=== PATIENT | female | born 1955 | race Hispanic/Latino ===

== ENCOUNTER 2019-03-19 08:17 | Day surgery (SDC) | payer OTHER ==
[2019-03-14 15:33] LABS: Absolute Lymphocytes (CBC) 1.9 K/uL (0.7-4.9); Absolute Monocytes 0.4 K/uL (0.1-1.3); Basophils % 0.7 % (0-1.3); Eosinophils % 3.7 % (0-4.4); Hematocrit 38.4 % (36.0-45.0); Lymphocytes % 24.6 % (15.3-44.8); MPV 6.9 fL (7.6-11.3); Monocytes % 5.1 % (3.3-12.3); RBC Red Blood Cell Count 4.26 M/uL (3.86-4.86)
--- OUTSIDE RECORDS SUMMARY | 2019-03-19 08:21 | XMS REPORT | Continuity of Care Document ---
:1955 Author Organization Interface Problems Problem Status Onset Classification Date Comments Source Date Reported POTACATH Active [facility] PLACEMENT 6 Medications Medication Details Route Status Patient Ordering Order Source Instructions Provider Date Allergies, Adverse Reactions, Alerts Substance Category Reaction Severity Reaction Status Date Comments Source type Reported Immunizations Immunization Date Given Site Status Last Updated Comments Source Results Order Results Value Reference Date Interpretation Comments Source Name Range CVC CVC PORT-A-CATH PLACEMENT: 04/08 - insert insert /2015 - [facility] tunnel tunnel w/-w/o w/-w/o port/pu port/pum HISTORY: Lymphoma, long-term venous access needed for chemotherapy. Read by: Al Christy MD mp age p age 5+ Dictated Date/time: 04/08/16 16:50 5+ yrs yrs VR Electronically Signed by: Al Christy MD 04/08/16 16:52 VR FINAL REPORT PROCEDURE: Preliminary ultrasound of the right neck showed a patent and compressible right internal jugular vein. Using ultrasound guidance, maximum barrier sterile technique and local anesthetic, the r ight internal jugular vein above the clavicle was accessed with a micropuncture set. A J-wire wire was then placed under fluoroscopic guidance into the superior vena cava and manipulated into the inferior vena cava. An incision was then made in the upper anterior chest wall in the right subclavicular region, following which a pocket was created using blunt finger dissection to the level of the fascia. An 8 Divehi open-ended catheter was then tunneled from the pocket to the access site in the neck. Following this the micropuncture sheath was exchanged for a peel-away sheath through which the catheter was placed and the sheath then removed. The catheter was positioned under fluoroscopy with its tip at the cavoatrial junction. The catheter was then trimmed to an appropriate length following which it was attached to a Bard PowerPort and the retention collar applied. The port was then accessed with a noncoring needle following which there was good blood return. The port was then flushed with saline. The port was then placed into the pocket and positioned. The pocket incision was then closed with interrupted 3-0 Vicryl subcutaneous sutures and a 4-0 Vicryl running subcuticular suture. The access sit e in the neck was then closed with Dermabond. Steri-Strips were applied to both areas. The port was then accessed percutaneously with a noncoring needle. There was good blood return following which the port was flushed with approximately 20 ml of saline and the needle removed. The patient tolerated procedure well without immediate complications and was discharged from Special Procedures in stable condition. Spot imaging of the guidance procedures was done. The fluoroscopic time was 0.9 minutes.. [id number] Vital Signs Vital Sign Value Date Comments Source Encounters Location Location Encounter Encounter Reason Attending ADM DC Status Source Details Type Number For Provider Date Date Visit Procedures Procedure Code Date Perfomer Comments Source
[2019-03-19] MEDS ORDERED: Ringers Lactate 1,000 ML IV ONE (08:53)
[2019-03-19] MEDS ORDERED: CEFAZOLIN/SWI 1gm 1 GM/10 ML SYR ONE (08:54)
[2019-03-19] MEDS ORDERED: BUPIVACAINE 0.5% PF 10 ML VIAL ONE (08:55)
[2019-03-19] MEDS ORDERED: MIDAZOLAM HCL 2 MG/2 ML INJ ONE (09:33)
[2019-03-19] MEDS ORDERED: PROPOFOL 200 MG/20 ML VIAL IV ONE (09:33)
[2019-03-19] MEDS ORDERED: FENTANYL CITR 100 MCG/2 ML ONE (09:33)
[2019-03-19] MEDS ORDERED: LIDOCAINE 1% MPF 5 ML VIAL ONE (09:33)
[2019-03-19] MEDS ORDERED: SUCCINYLCHOLINE 20 MG/ML (10 ML) IV ONE (12:20)
--- NOTE | 2019-03-19 19:42 | OP ---
Date of Procedure: 03/19/2019 Surgeon: Juarez Gaines MD Preoperative Diagnosis: Non-Hodgkin's lymphoma. Status post Port-A-Cath placement. Postoperative Diagnosis: Non-Hodgkin's lymphoma. Status post Port-A-Cath placement. Procedure: Removal of right chest Port-A-Cath. Estimated Blood Loss: Minimal. Specimen: Port-A-Cath device. Findings: Normal anatomy. Anesthesia: General. Complications: None. Disposition: The patient tolerated the procedure in stable condition and taken to Recovery in good g eneral condition. Description Of Procedure: The patient was brought to the OR and placed in supine position. General anesthesia was begun. The patient was prepped and draped in sterile fashion. Marcaine 0.5% was infi ltrated locally. A 15-blade was used to make a 3 cm incision with a Port-A-Cath on the right anterio r chest. Subcutaneous tissue divided and deep to that Port-A-Cath device was identified, excised wit h sharp and blunt dissection, removed and sent to Pathology intact for identification. Wound irrigat ed. Bleeding controlled with cautery and then 3-0 chromic used to approximate the subcutaneous tissu e and close the skin. Sterile dressing was applied. The patient was awakened and taken to Recovery in good general condition. Discharge Note: The patient will go to day surgery and home when stable. Disposition: Home. Condition: Stable. Discharge Instructions: Resume home medications and diet. Activity as tolerated. No heavy lifting. Remove outer dressing in 2 days. Shower. Keep wound clean and dry. Keep Steri-Strips on at all t imes. Follow up in my office in 2 weeks. Call for appointment. Ultracet 1 tablet p.o. q.4 p.r.n. p adrian. JACK/ANAIS Voice ID: [id number] Report ID: [id number]
== END 2019-03-19 11:09 | disposition home or self-care (01) ==
LOC: OR 08:17
PROVIDERS: ATTEND Surgery
PROC: 0JPT3XZ Removal of Tunneled Vascular Access Device from Trunk Subcutaneous Tissue and Fascia, Percutaneous Approach (ICD-10-PCS; principal; 2019-03-19 09:30)
DX: Z45.2 Encounter for adjustment and management of vascular access device (principal); I10 Essential (primary) hypertension; Z79.899 Other long term (current) drug therapy; Z85.72 Personal history of non-Hodgkin lymphomas
CPT/HCPCS: 36415; 85025; 88300; J0330; J0690; J2250; J2704; J3010

== ENCOUNTER 2022-12-02 06:37 | Day surgery (SDC) | payer OTHER ==
[2022-12-02] MEDS ORDERED: Ringers Lactate 1,000 ML IV ONE (07:01)
[2022-12-02] MEDS ORDERED: ROCURONIUM 50 MG/5 ML VIAL IV ONE (07:25)
[2022-12-02] MEDS ORDERED: propofoL 200 MG/20 ML VIAL IV ONE (07:25)
[2022-12-02] MEDS ORDERED: LIDOCAINE 2% MPF 5 ML VIAL ONE (07:25)
[2022-12-02] MEDS ORDERED: FENTANYL CITR 100 MCG/2 ML ONE (07:25)
[2022-12-02] MEDS: CEFAZOLIN SODIUM 2 GM/VIAL ONE ×2 (07:48→08:27)
[2022-12-02 07:53] LABS: Potassium 4.9 mmol/L (3.5-5.1)
[2022-12-02] MEDS ORDERED: MIDAZOLAM HCL 2 MG/2 ML INJ ONE (08:25)
[2022-12-02] MEDS ORDERED: ONDANSETRON 4 MG/2 ML VIAL ONE (08:50)
[2022-12-02] MEDS ORDERED: dexAMETHasone 4 MG/ML VIAL ONE (08:50)
[2022-12-02] MEDS ORDERED: EPHEDRINE SULF 50 MG/ML VIAL ONE (09:01)
[2022-12-02] MEDS ORDERED: GLYCOPYRROLATE 0.2 MG/ML SYR ONE (10:22)
[2022-12-02] MEDS ORDERED: NEOSTIGMINE 1 MG/ML -10 ML VIAL ONE (10:23)
[2022-12-02] MEDS ORDERED: HOME MED 1 EA UNK (Naproxen Sodium [Aleve] 220 MG Tablet) PO PRN (10:26)
--- NOTE | 2022-12-02 10:33 | P.BOP ---
Preoperative diagnosis: Mixed urinary incontinence Postoperative diagnosis: Same Primary procedure: StgI InterStim/ incision+implantation of tined quadripolar lead electrode Secondary procedure: Into right S3 foramen with fluoroscopic guidance for needle placement Estimated blood loss: Minimal Specimen: None Findings: Right S3 excellent response:0,1 electrodes, 2,3 toe+, no linnea Anesthesia: General Complications: None Implants: medtronic quadripolar tined lead, ext stim connector Transferred to: Recovery Room Condition: Good (exit battery pocket Rt buttock)
--- NOTE | 2022-12-02 10:35 | RAD REPORT ---
EXAM DESCRIPTION: RAD - Fluoroscopy <1 Hour - 12/02/2022 10:26 am CLINICAL HISTORY: Device placement sacral neural modulation FINDINGS: An electrode lead placed into the left aspect of the sacrum. 3 fluoroscopic spot images are submitted. Fluoroscopy time 0.9 minutes The examination was performed by Dr. Ervin
[2022-12-02] MEDS: HYDROMORPHONE HCL 1 MG/ML INJ ONE ×2 (10:41→10:47)
[2022-12-02 11:28] VITALS: TEMP 97
[2022-12-02 12:39] VITALS: BP 99/42; O2SAT 96
[2022-12-02] MEDS ORDERED: DICYCLOMINE HCL 10 MG CAP PO SCH (14:00)
--- NOTE | 2022-12-02 18:40 | OP ---
Date of Procedure: 12/02/2022 Surgeon: Noris Ervin MD Preoperative Diagnosis: Mixed urinary incontinence. Postoperative Diagnosis: Mixed urinary incontinence. Procedure Performed: Stage I InterStim incision and implantation of tined quadripolar lead electrode s into right S3 foramen with fluoroscopic guidance for needle placement. Estimated Blood Loss: Minimal. Specimens: None. Complications: None. Drains: None. Findings: Right S3 had excellent response. The left S3 had no response on any of the electrodes. T he electrodes 0 and 1 have full response with the toes and linnea and 2 and 3 had just a toe respons e and no linnea. Anesthesia: General. Implant: Medtronic quadripolar tined lead external Stim connector. Disposition: Transferred to the recovery room in stable condition. Indications: The patient is a 67-year-old female with refractory overactive bladder. She was evalua comfort with a voiding log questionnaire given her severity of incontinence, which was overactive and str ess urinary incontinence. She underwent urodynamic testing, which proved that she had components of both the severity of urgency and urgency incontinence is much worse than her JORDAN so we started to dis cuss about all the therapies. She had medical treatment, which she did not have response from so thi rd line therapies were discussed between Botox and InterStim and she was consented for the InterStim therapy for sacral neuromodulation. She has undergone coaching for Kegel's and advised on pelvic zuhair or muscle rehab. Urine dip negative for infection and brought into the hospital for stage I InterStim. Procedure In Detail: The patient was properly identified and placed in a prone position by the OR pr otocol. General anesthesia was administered. Pillows were placed under the lower abdomen to flatten the sacrum and under the shins to allow the toes to dangle and these were exposed. She was prepped and draped with ChloraPrep and a sterile fashion. The C-arm was draped and moved into position to pr ovide fluoroscopic mapping on the sacral region. The midline was drawn by surface markings and an 11 cm proximal to the sacrum and to the coccyx in th e midline, transverse line was drawn and this was marked 2 cm and 2.5 on both sides. Then went ahead and started lidocaine injection on both sides all the way down to the periosteum. With the help of the foramen needle, this was introduced right above the sciatic notch and lateral to the sacral midline 2 cm, feeling for the foraminal margins. At the 2 cm sindy, still was palpating b one so I moved over to 2.5 cm and from here, it was easy to find the foraminal margins and once this was penetrated and inserted, then AP and lateral views were taken. The position seemed to be appropr iate; however, the entry was slightly more caudad and angulated. On testing, there was no response f or linnea or for toe flexion, plantar flexion, so I took another needle and went 0.5 cm cephalad krish ng the same line. Then this was introduced into the S3 without any problems. On testing with x-rays , this was in a good position; however, there was very minimal response with toe flexion. Moved over to the right side and once the needle was placed in the foraminal margin and confirmed flu oroscopically and adjusted fluoroscopically till the tip was just past the anterior border, then the motor function was tested. There was bellowing and plantar flexion of the great toe using the manager corporate al test stimulator. The foramen needle and stylet were removed and a bidirectional guide was placed and this was confirme d fluoroscopically. The foramen needle was then removed after making an incision on the skin and the fascia to open the incision slightly more. The directional guide was left in place and the needle r emoved. Then the lead introducer sheath with dilator was placed over the directional guide and direc comfort into the foramen ensuring that the radiopaque marker of the lead introducer did not extend beyond the anterior edge of the sacrum. There was bleeding at this point so this was with advanced slightl y until there was no bleeding and the stylet left in place. Once the bleeding had stopped completely , the dilator was unlocked and removed along the directional guide. The lead was then placed through the introducer sheath to the first white line and the position was checked fluoroscopically until th e lead 0 was just straddling the anterior border. Confirmed both on AP and lateral positions, there was an excellent curve following the nerve and once I tested this, the lead position had to be adjust ed as leads 2 and 3 had toe flexion, but minimal linnea first for the lead #2, but then later that a lso was lost. On leads 1 and 0, there was great plantar flexion and linnea and since the positionin g fluoroscopically also was optimal, I left this in place. Likely the conduction is affected by the bleeding and clot that was at the site of introduction. After this was satisfactory, the introducer sheath was retracted under continuous fluoro deploying the tined leads into the presacral tissue. Further incision was made into the skin of this incision to free up the lead without a knuckle. Next , incision was made 4 fingerbreadths inferior to the iliac crest on the right buttock after injecting 1% lidocaine. A 15 blade used then Bovie at least 1 inch into the buttock. Blunt dissection was co ntinued until the gluteal fascia was identified and hemostasis was secured with the Bovie. The [employer] Media[employer] ling tool with straw was placed from the lead exit site subcutaneously to the incised pocket site. T hen the tunneling tool was removed and the lead was fed through the straw and pulled out of the pocke t site. The lead was then cleansed off the bodily fluids. The external lead exit site was then sindy ed on the same side of the patient, the right and the tunneler was taken and this was brought out thr ough the exit incision. Then, attached the boot to this with the temporary percutaneous extension an d then brought out into the pocket. Then, the temporary percutaneous extension was removed from this and the lead was inserted into it and metal bands were aligned and the 4 set screws were tightened w ith a hex wrench. The boot was then pushed over the connection and the 0 silk ties were placed on th e external wire. Then all this was tucked into the pocket. The subcutaneous plane was closed with t he help of 2 interrupted 3-0 chromic sutures. 4-0 Monocryl was used for continuous running closure o f the skin at this site, the site for the exit of the external lead, and also at the site of the lead insertion. The wounds were irrigated and hemostasis was secured. Dermabond and gauze were placed o rangel the incisions. Tegaderm placed over this and the counts were correct. EBL was minimal. The pat ient was transferred to the recovery room in stable condition. Using the external test stimulator, t he patient programmed to optimal sensation. A diary was given to the patient to fill until the return to office on day 5 for evaluation of effica cy and then instructions given on utilizing the external test stimulator prior to discharge. The pat ient tolerated the procedure well. JESUS/ANAIS Voice ID: [id number] Report ID: [id number]
[2022-12-02] MEDS ORDERED: GABAPENTIN 300 MG CAP PO SCH (21:00)
[2022-12-02] MEDS ORDERED: HOME MED 1 EA UNK (Famotidine [Famotidine] 40 MG Tablet) PO SCH (21:00)
[2022-12-03] MEDS ORDERED: LOSARTAN POTASSIUM 50 MG TABLET PO SCH (06:00)
[2022-12-03] MEDS ORDERED: CRANBERRY FRUIT EXTRACT 425 MG PO SCH (09:00)
[2022-12-03] MEDS ORDERED: HOME MED 1 EA UNK (Cartilage/Collagen/Bor/Hyalur [Joint Health Tablet] Tablet) PO SCH (09:00)
[2022-12-03] MEDS ORDERED: FENOFIBRATE 145 MG TAB PO SCH (09:00)
[2022-12-03] MEDS ORDERED: [UNRECOGNIZED DRUG - REMARK] PO SCH (09:00)
[2022-12-03] MEDS ORDERED: SERTRALINE HCL 50 MG TAB PO SCH (09:00)
[2022-12-03] MEDS ORDERED: HOME MED 1 EA UNK (Estradiol [Estrace] 42.5 GM Cream.Appl) VG SCH (17:00)
== END 2022-12-02 12:13 | disposition home or self-care (01) ==
LOC: OR 06:37
PROVIDERS: ATTEND Obstetrics & Gynecology
PROC: 01HY3MZ Insertion of Neurostimulator Lead into Peripheral Nerve, Percutaneous Approach (ICD-10-PCS; principal; 2022-12-02 07:30)
DX: N39.46 Mixed incontinence (principal); N32.81 Overactive bladder; I10 Essential (primary) hypertension; E78.00 Pure hypercholesterolemia, unspecified; C85.90 Non-Hodgkin lymphoma, unspecified, unspecified site
CPT/HCPCS: 80048; 36415; 64561; J2704; J1100; J2710; J2001; J2250; J3010; J1170; J7120; J2405; 76000

== ENCOUNTER 2022-12-10 06:33 | Day surgery (SDC) | payer OTHER ==
[2022-12-10] MEDS ORDERED: Ringers Lactate 1,000 ML IV ONE (06:50)
[2022-12-10] MEDS ORDERED: LIDOCAINE 1% W/EPI 1:100,000 50 ML MDV ONE (07:26)
[2022-12-10] MEDS: CEFAZOLIN SODIUM 2 GM/VIAL ONE ×2 (07:30→07:35)
[2022-12-10 07:33] VITALS: TEMP 96.9
[2022-12-10] MEDS ORDERED: MIDAZOLAM HCL 2 MG/2 ML INJ ONE (07:45)
[2022-12-10] MEDS ORDERED: propofoL 200 MG/20 ML VIAL IV ONE (07:45)
[2022-12-10] MEDS ORDERED: ONDANSETRON 4 MG/2 ML VIAL ONE (07:45)
[2022-12-10] MEDS ORDERED: LIDOCAINE 2% MPF 5 ML VIAL ONE (07:45)
[2022-12-10] MEDS ORDERED: FENTANYL CITR 100 MCG/2 ML ONE (07:45)
[2022-12-10] MEDS ORDERED: HOME MED 1 EA UNK (Naproxen Sodium [Aleve] 220 MG Tablet) PO PRN (08:24)
[2022-12-10] MEDS ORDERED: PROMETHAZINE INJ 25 MG/ML AMP IV PRN (08:25)
--- NOTE | 2022-12-10 08:31 | P.BOP ---
Preoperative diagnosis: UUI, refractory OAB, JORDAN (Mixed incontinence) Postoperative diagnosis: same Primary procedure: Insertion and immplantation of Interstim X neuromodulator,programming Secondary procedure: Urethral Bulking with Bulkamid and cysto Estimated blood loss: min Specimen: none Findings: right buttock stimulator and Rt S3 lead, impedence check done Anesthesia: MAC Complications: None Implants: Interstim X, Bulkamid Transferred to: Recovery Room Condition: Good
[2022-12-10] MEDS ORDERED: DICYCLOMINE HCL 10 MG CAP PO SCH (09:00)
[2022-12-10] MEDS ORDERED: GABAPENTIN 300 MG CAP PO SCH (09:00)
[2022-12-10] MEDS ORDERED: [UNRECOGNIZED DRUG - REMARK] PO SCH (09:00)
[2022-12-10] MEDS ORDERED: HOME MED 1 EA UNK (Cartilage/Collagen/Bor/Hyalur [Joint Health Tablet] Tablet) PO SCH (09:00)
[2022-12-10] MEDS ORDERED: CRANBERRY FRUIT EXTRACT 425 MG PO SCH (09:00)
[2022-12-10] MEDS ORDERED: FENOFIBRATE 145 MG TAB PO SCH (09:00)
[2022-12-10] MEDS ORDERED: SERTRALINE HCL 50 MG TAB PO SCH (09:00)
[2022-12-10 10:45] VITALS: BP 98/38; O2SAT 98
[2022-12-10] MEDS ORDERED: HOME MED 1 EA UNK (Estradiol [Estrace] 42.5 GM Cream.Appl) VG SCH (17:00)
[2022-12-10] MEDS ORDERED: HOME MED 1 EA UNK (Famotidine [Famotidine] 40 MG Tablet) PO SCH (21:00)
--- NOTE | 2022-12-11 01:11 | OP ---
Date of Procedure: 12/10/2022 Surgeon: Noris Ervin MD Dairy Specialist: None. Preoperative Diagnoses: Mixed urinary incontinence, urgency, urinary incontinence, and refractory ov eractive bladder. Postoperative Diagnoses: Mixed urinary incontinence, urgency, urinary incontinence, and refractory o veractive bladder. Procedures Performed: 1.Incision and subcutaneous implantation of sacral neuromodulator with electronic analysis and progr amming. 2.Urethral bulking with Bulkamid and cystoscopy. Complications: None. Drains: None. Specimens: None. Estimated Blood Loss: Minimal. Condition: Stable. Findings: 1.The right buttock S3 quadripolar tined lead was done attached to the InterStim X neurostimulator i mplanted in the right buttock in an optimal fashion. check was passed before the pocket w as closed. 2.On urethral bulking, 0.8 mL of the Bulkamid was used with injections at 5 to 11 and 7 o'clock. Indications: The patient had significant improvement of urgency and urgency incontinence with pad us e and frequency, both nighttime and daytime and had significant improvement in quality of life and sl eep. She was very satisfied with her stage I trial and was consented for proceeding to stage II. She had significant JORDAN as well and so urethral bulking was suggested at this time. Procedure In Detail: After informed consent was verified, she was taken back to the OR. 2 g of Ance f were given. SCDs were placed. After she went to the operating room and MAC was given to her and s he was then placed in a prone position, per the OR protocol was properly identified and time-out was done. Her back was prepped and draped in the usual sterile fashion using ChloraPrep and local inject ion with 1% lidocaine. The previous buttock incision pocket was opened using blunt dissection after making an incision with a 15 blade and the V in the percutaneous extension connection was identified and elevated. The percu taneous extension was cut and removed after the lead was detached from the boot, all this was done en suring sterility. The cutaneous pocket anterior to the muscle surface was enlarged and hemostasis wa s established. The sutures holding the protective boot were cut and the boot was retracted. Before the boot was cut, the set screws were exposed and loosened with a hex wrench in order to detach the l ead. The lead was cleansed off body fluid then dried. The lead was inserted into the header of the InterS hilario II neurostimulator of the InterStim X neurostimulator until the blue tip was visualized at the di stal window and the single set screw was tightened for 2 to 3 clicks. The neurostimulator was then placed into the subcutaneous pocket with the etched identification side upwards and the excessive lead wrapped counterclockwise around the neurostimulator. The programming head was placed over the implanted neurostimulator in a sterile to ensure adequate lead co nnection and that the parameters were within normal limits. Impedances were confirmed to be within n ormal limits. The wound was irrigated with antibiotic solution and water and closed with the help of 3-0 chromic leblanc bcutaneous sutures and then 4-0 Monocryl in a continuous running fashion. Dermabond was placed and l ater Telfa on the top. Counts were correct. Bandage was placed on the Telfa. The patient was rolled over onto the bed that was brought into the OR from the operating table into a supine position and she was transferred back onto the operating room table. Once MAC was given agai n, she was placed in a dorsal lithotomy position using Isaías stirrups. Vulva, vagina, and perineum w ere prepped and draped in a sterile fashion. Then using the pediatric cystoscope and the Bulkamid sh eath, after priming the line then this was placed inside the urethra and keeping the tip of the sheat h on the cystoscope at the internal meatus, the Bulkamid needle was extended 2 cm into the bladder. Then, the entire system was retracted back in the mid urethra, 2 cm from the internal sphincter. In the mid urethra, by staying on the same side and pressing down onto the side which was being injected , which made the needle parallel and the scope as well to the wall and the location at which we wante d to place the Bulkamid gel optimal. Then the needle was injected with to slightly more t ruiz 0.5 cm almost to a complete cm and the Bulkamid agent was injected. The same injection was done at 5 o'clock, 1 to 2 o'clock, 11 o'clock, and between 7 and 8 o'clock. 0.8 mL was injected. At the first attempt, the needle and the syringe were not attached very firmly so the material squeezed out and we had to take a second syringe. Once this was done, there was excellent apposition of the ureth ral wall. There was no flow that was retrograde. The scope was gently pulled out then the patient w as cleaned up. She was recovered from anesthesia. Instrument, needle, and sponge counts were correc t. EBL minimal. All the parameters were programmed for the particular case. Plan to hold voiding trial before her di efren. JESUS/LEEANNL Voice ID: [id number] Report ID: [id number]
[2022-12-11] MEDS ORDERED: LOSARTAN POTASSIUM 50 MG TABLET PO SCH (06:00)
== END 2022-12-10 10:32 | disposition home or self-care (01) ==
LOC: OR 06:33
PROVIDERS: ATTEND Obstetrics & Gynecology
PROC: 0TVD8ZZ Restriction of Urethra, Via Natural or Artificial Opening Endoscopic (ICD-10-PCS; principal; 2022-12-10 07:30)
PROC: 0JH73BZ Insertion of Single Array Stimulator Generator into Back Subcutaneous Tissue and Fascia, Percutaneous Approach (ICD-10-PCS; 2022-12-10 07:30)
DX: N39.46 Mixed incontinence (principal); N32.81 Overactive bladder
CPT/HCPCS: 51715; 64590; J2704; J3010; J2001; J2250; J7120; J2405; L8606

== ENCOUNTER 2024-01-05 05:14 | Inpatient (IN) | payer OTHER ==
[2024-01-05] MEDS ORDERED: KETOROLAC 30 MG/ML INJ ONE (05:46)
[2024-01-05] MEDS ORDERED: ONDANSETRON 4 MG/2 ML VIAL ONE (05:46)
[2024-01-05] MEDS ORDERED: NA CHLORIDE 0.9% 1,000 ML ONE ×3 (05:47→15:52)
[2024-01-05] MEDS ORDERED: HALOPERIDOL LACT 5 MG/ML INJ ONE (05:47)
[2024-01-05] MEDS ORDERED: FAMOTIDINE 20 MG/2 ML VIAL IV ONE (05:47)
[2024-01-05 05:57] LABS: Absolute Basophils 0.1 K/uL (0-0.5); Absolute Eosinophils 0.2 K/uL (0-0.5); Absolute Lymphocytes (CBC) 1.5 K/uL (0.7-4.9); Absolute Monocytes 0.3 K/uL (0.1-1.3); Absolute Neutrophil 15.3 K/uL (1.8-8.0); Basophils % 0.4 % (0-1.3); Eosinophils % 0.9 % (0-4.4); Hematocrit 41.7 % (36.0-45.0); Hemoglobin 13.5 g/dL (12.0-15.0); Lymphocytes % 8.5 % (15.3-44.8); MCH 29.7 pg (27.0-35.0); MCHC 32.4 g/dL (32.0-36.0); MCV 91.5 fL (80-100); MPV 8.4 fL (7.6-11.3); Monocytes % 1.6 % (3.3-12.3); Neutrophils % 88.6 % (41.7-73.7); Nucleated Red Blood Cells % 0.1 % (0-0); Platelets 216 thou/uL (152-406); RBC Red Blood Cell Count 4.56 M/uL (3.86-4.86); Red Cell Distribution Width 13.2 % (12.1-15.2)
[2024-01-05 06:23] LABS: Albumin 2.6 g/dL (3.4-5.0); Albumin/Globulin Ratio 0.6 (1.1-1.8); Anion Gap 18.5 mEq/L (5.0-15.0); Bilirubin Total 3.9 mg/dL (0.2-1.0); Globulin 4.7 g/dL (2.3-3.5); Potassium 4.5 mEq/L (3.5-5.1); Protein, Total 7.3 g/dL (6.4-8.2)
[2024-01-05 06:25] LABS: Troponin High Sensitivity 99.2 pg/mL (<58.9)
[2024-01-05 06:32] LABS: Sqamous Epithelial 20-50 /HPF (None Seen); Urine Bacteria Loaded /HPF (<20); Urine Bilirubin NEGATIVE (Negative); Urine Blood 3+ (Negative); Urine Clarity Extremely Turbid (Clear); Urine Color Dark-Orange (Yellow); Urine Culture Reflex Order NOT NEEDED; Urine Glucose NEGATIVE (Negative); Urine Ketones NEGATIVE (Negative); Urine Microscopic Reflex YN ORDER UMIC; Urine Mucus 4+ /HPF (None Seen); Urine Nitrite NEGATIVE (Negative); Urine Protein 2+ (Negative); Urine RBC >50 /HPF (None Seen); Urine Urobilinogen Normal (Normal); Urine WBC >50 /HPF (<5); Urine WBC Clump Many /HPF (None Seen); Urine pH 5.5 (5.0-7.0)
[2024-01-05] MEDS ORDERED: CEFTRIAXONE 1000 MG/VIAL ONE (06:49)
[2024-01-05] MEDS ORDERED: METRONIDAZOLE 500mg IVPB 500 MG/100 ML BAG IV ONE ×2 (06:49→17:51)
[2024-01-05 07:13] LABS: Thyroid Stimulating Hormone 2.18 uIU/mL (0.358-3.740)
[2024-01-05 07:27] LABS: Atypical Lymphocytes 1 %; Band Neutrophils 20 % (0-1); Differential Total Cells Count 100; Eosinophils 1 % (0-3); Lymphocytes 13 % (15-42); Monocytes 9 % (0-10); Nucleated Red Blood Cells 1 /100WBC; Segmented Neutrophils 56 % (40-80)
[2024-01-05 07:28] LABS: Blood Morphology Comment NOT SEEN (NOT SEEN); Platelet Estimate ADEQ
[2024-01-05] MEDS: DIGOXIN 0.25 MG/ML AMP ONE (07:33)
[2024-01-05] MEDS: NA CHLORIDE 0.9% 1,000 ML ONE (07:33)
--- NOTE | 2024-01-05 08:06 | RAD REPORT ---
EXAM DESCRIPTION: CT - Abdomen Pelvis Wo Contrast - 01/05/2024 6:53 am CLINICAL HISTORY: Abdominal pain. ABD PAIN COMPARISON: <Comparisons> TECHNIQUE: CT imaging of the abdomen and pelvis was performed without contrast. Solid organ, bowel a nd vascular assessment is limited due to lack of IV and oral contrast. All CT scans are performed using dose optimization technique as appropriate and may include automated exposure control or mA/KV adjustment according to patient size. FINDINGS: The lower lung shankar are clear. The liver, spleen, pancreas, adrenal glands and kidneys are within normal limits for a limited non-co ntrast examination.Cholecystectomy. No bowel obstruction, free air, free fluid or abscess. The colon appears mildly fluid distended throu ghout its course. Wall thickening is present throughout the colon is mild. No evidence pneumatosis co li. The appendix is normal. Moderate fat containing umbilical. Moderate lower lumbar degenerative changes. IMPRESSION: [id number] pancolitis. A limited non-contrast examination was performed as detailed.
[2024-01-05] MEDS ORDERED: AMIODARONE HCL 150 MG/3 ML INJ IV ONE (08:11)
[2024-01-05] MEDS: AMIODARONE HCL 900 MG in Dextrose 5%-Water 482 ML IV SCH (08:19)
[2024-01-05] MEDS ORDERED: NA CHLORIDE 0.9% 50 ML ONE (08:48)
--- NOTE | 2024-01-05 09:05 | EDPHYS ---
Physician Documentation [facility] Name: Jovana Tyson Age: 68 yrs Sex: Female : 1955 Arrival Date: 01/05/2024 Time: 05:14 Bed 4 Private MD: ED Physician Zeyad Mir HPI: 01/04 05:34 This 68 yrs old Female presents to ER via Unassigned with complaints of sp4 Abdominal Pain, Diarrhea. 06:37 Patient reports left-sided abdominal pain starting 3 days ago associated with nausea sp4 and diarrhea. . Historical: - Allergies: 05:37 Codeine; tm6 - PMHx: 05:37 Hypertensive disorder; Hypercholesterolemia; overactive bladder; tm6 06:33 non-hodgkins lymphona; tm6 - PSHx: 05:37 tubal ligation; tm6 - Immunization history:: Adult Immunizations up to date, Client reports having NOT received the Covid vaccine. Flu vaccine is up to date. - Social history:: Smoking status: Patient denies any tobacco usage or history of. Patient/guardian denies using alcohol. - Family history:: not pertinent. ROS: 06:37 Constitutional: Negative for fever, chills, and weight loss, positive abdominal pain sp4 nausea and diarrhea 06:37 All other systems are negative, Exam: 06:37 Constitutional: This is a well developed, well nourished patient who is awake, alert, sp4 and in no acute distress. Head/Face: Normocephalic, atraumatic. Eyes: Pupils equal round and reactive to light, extra-ocular motions intact. Lids and lashes normal. Conjunctiva and sclera are not injected. Cornea within normal limits. Periorbital areas with no swelling, redness, or edema. ENT: Nares patent. No nasal discharge, no septal abnormalities noted. Tympanic membranes are normal and external auditory canals are clear. Oropharynx with no redness, swelling, or masses, exudates, or evidence of obstruction, uvula midline. Mucous membranes moist. Neck: Trachea midline, no thyromegaly or masses palpated, and no cervical lymphadenopathy. Supple, full range of motion without nuchal rigidity, or vertebral point tenderness. Chest/axilla: Normal chest wall appearance and motion. Nontender with no deformity. No lesions are appreciated. Cardiovascular: Regular rate and rhythm with a normal S1 and S2. No gallops, murmurs, or rubs. Normal PMI, no JVD. No pulse deficits. Respiratory: Lungs have equal breath sounds bilaterally, clear to auscultation and percussion. No rales, rhonchi or wheezes noted. No increased work of breathing, no retractions or nasal flaring. Abdomen/GI: Soft, with normal bowel sounds. No distension or tympany. No guarding or rebound. No evidence of tenderness throughout. Back: No spinal tenderness. No costovertebral tenderness. Skin: Warm, dry with normal turgor. Normal color with no rashes, no lesions, and no evidence of cellulitis. MS/ Extremity: Pulses equal, no cyanosis. Neurovascular intact. Full, normal range of motion. Neuro: Awake and alert, GCS 15, oriented to person, place, time, and situation. Cranial nerves II-XII grossly intact. Motor strength 5/5 in all extremities. Sensory grossly intact. Psych: Awake, alert, with orientation to person, place and time. Behavior, mood, and affect are within normal limits 06:40 ECG was reviewed by the Attending Physician. 0 432 sinus tachycardia at a rate of sp4 113 08:00 ECG was reviewed by the Attending Physician. rt Vital Signs: 05:31 BP 133 / 101; Pulse 113; Resp 19; Temp 98(O); Pulse Ox 99% on R/A; Weight 96.5 kg; tm6 Height 5 ft. 5 in. ; Pain 7/10; 05:37 BP 105 / 94; Pulse 113; Resp 12; Pulse Ox 95% on R/A; Pain 7/10; tm6 06:23 BP 106 / 73; Pulse 113; Resp 23; Pulse Ox 97% on R/A; tm6 07:20 BP 77 / 31; Pulse 144; Resp 18; Pulse Ox 99% on R/A; ph 08:00 BP 103 / 50; Pulse 132; Resp 18; Pulse Ox 97% on R/A; ph 08:32 BP 84 / 53; Pulse 114; Resp 18; Pulse Ox 96% on R/A; ph 05:31 Body Mass Index 35.40 (96.50 kg, 165.1 cm) tm6 05:31 Pain Scale: Adult tm6 05:37 Pain Scale: Adult tm6 Dixon Coma Score: 06:37 Eye Response: spontaneous(4). Motor Response: obeys commands(6). Verbal Response: sp4 oriented(5). Total: 15. MDM: 06:37 Patient medically screened. sp4 06:41 Differential diagnosis: Nonspecific abd pain, gastritis, cholecystitis, pancreatitis, sp4 appendicitis, diverticulitis, viral gastroenteritis, gastroenteritis. Data reviewed: vital signs, nurses notes, EMS record, lab test result(s), EKG, radiologic studies. 07:07 Consideration of Admission/Observation Patient was admitted/placed on observation. sp4 Escalation of care including admission/observation considered. Transition of care: After a detail discussion of the patient's case, care is transferred to Zeyad Mir MD. 09:06 ED course: I assumed care at shift change, patient developed worsening hypotension with rt A-fib with RVR, blood pressure is responsive to further IV fluids, will start patient on dig, amiodarone drip. Discussed with her primary care physician, will admit to the hospital.. 01/04 05:34 Order name: CBC with Diff; Complete Time: 07:31 sp4 01/04 05:34 Order name: CMP; Complete Time: 06:28 sp4 01/04 05:34 Order name: Lipase; Complete Time: 06:28 sp4 01/04 05:34 Order name: Urinalysis w/ reflexes; Complete Time: 06:35 sp4 01/04 05:54 Order name: Troponin High Sensitivity; Complete Time: 06:28 EDMS 01/04 06:36 Order name: TSH; Complete Time: 07:31 sp4 01/04 06:36 Order name: T4 Free; Complete Time: 07:31 sp4 01/04 06:50 Order name: Blood Culture Adult (2) sp4 01/04 06:50 Order name: Lactate w/ 2H reflex if indic.; Complete Time: 08:11 sp4 01/04 06:50 Order name: Procalcitonin; Complete Time: 08:11 sp4 01/04 06:56 Order name: C-Reactive Protein; Complete Time: 07:31 EDMS 01/04 07:21 Order name: Manual Differential; Complete Time: 07:31 EDMS 01/04 08:17 Order name: CDIFF rt 01/04 11:35 Order name: Lactate Sepsis 2 HR Follow-up EDMS 01/04 06:30 Order name: CT Abd/Pelvis - Without Contrast; Complete Time: 08:11 sp4 01/04 05:36 Order name: EKG; Complete Time: 05:36 sp4 01/04 09:04 Order name: CONS Physician Consult EDTN 01/04 05:34 Order name: IV Saline Lock; Complete Time: 05:44 sp4 01/04 05:34 Order name: Labs collected and sent; Complete Time: 05:44 sp4 01/04 05:36 Order name: EKG - Nurse/Tech; Complete Time: 05:44 sp4 EC:40 Rate is 113 beats/min. Rhythm is regular, Sinus tachycardia. QRS [place] is Normal. DC sp4 interval is normal. QRS interval is normal. QT interval is normal. No Q waves. T waves are Normal. No ST changes noted. Clinical impression: No evidence of ischemia. Interpreted by me. Reviewed by me. 08:00 Rate is 153 beats/min. Rhythm is irregularly irregular, A fib with No ectopy. QRS [place] rt is Normal. QRS interval is normal. QT interval is normal. No Q waves. No ST changes noted. Interpreted by me. Administered Medications: 06:18 Drug: Haloperidol IVP 2.5 mg/50 mL 2.5 mg IVP once; Place patient on a cardiac monitor technician tm6 Route: IVP; Site: right antecubital; 06:18 Drug: NS 0.9% IV 1000 ml IV at 1 bolus Per protocol; 1000 mL bolus Route: IV; Rate: 1 tm6 bolus; Site: right antecubital; 07:45 Follow up: Response: No adverse reaction; IV Status: Completed infusion; IV Intake: ph 1000ml 06:18 Drug: Famotidine IVP 20 mg IVP once; dilute with 10 mL 0.9% NaCl; give over 2 minutes tm6 Route: IVP; Site: right antecubital; 06:18 Drug: TORadol - Ketorolac IVP 15 mg IVP once Route: IVP; Site: right antecubital; tm6 06:18 Drug: Ondansetron IVP 4 mg IVP once; over 2 minutes Route: IVP; Site: right antecubital;tm6 07:35 Drug: NS 0.9% IV 1000 ml IV at 1 bolus Per protocol; 1000 mL bolus Route: IV; Rate: 1 ph bolus; Site: right antecubital; 08:31 Follow up: Response: No adverse reaction; IV Status: Completed infusion ph 07:35 Drug: Digoxin IVP 0.5 mg IVP once Route: IVP; Site: right antecubital; ph 08:15 Drug: amiodarone IVP 150 mg IVP once Route: IVP; Site: left antecubital; ph 08:50 Drug: NS 0.9% IV 1000 ml IV at 125 ml/hr continuous Route: IV; Rate: 125 ml/hr; Site: ph right antecubital; 09:01 Drug: Rocephin - Rocephin (cefTRIAXone) IVPB 1 grams IVPB once over 30 mins; (mix in 50 ph mL NS) Route: IVPB; Infused Over: 30 mins; Site: right antecubital; 09:01 Drug: amiodarone IVPB 900 mg, D5W IV 500 ml IVPB at 1 mg/min continuous; for 6 hrs, ph then change to 0.5 mg/min Route: IVPB; Rate: 1 mg/min; Site: left antecubital; 09:30 Drug: metroNIDAZOLE IVPB 500 mg 100 ml IVPB at 200 ml/hr once over 30 mins Volume: 100 ph ml; Route: IVPB; Rate: 200 ml/hr; Infused Over: 30 mins; Site: right antecubital; Disposition Summary: 01/05/24 09:05 Hospitalization Ordered Notes: Hospitalization Status: Inpatient Admission rt Provider: Earl Almanza rt Condition: Critical rt Problem: new rt Symptoms: have improved rt Bed/Room Type: Standard rt Location: Intensive Care Unit(01/05/24 12:11) Room Assignment: 4-(01/05/24 12:11) hb Diagnosis - Pain colitis rt - Severe sepsis rt - Atrial fibrillation with rapid ventricular rate rt Forms: - Medication Reconciliation Form rt - SBAR form rt - Leadership Thank You Letter rt Critical care time excluding procedures: 12:18 Critical care time: Bedside Care: 30 minutes, Consultation: 5 minutes. Total time: 35 rt minutes Signatures: Dispatcher [employer] Enzo Berrios ds4 Tish Chaudhry RN RN Rashmi Hyman RN RN Zeyad Mir MD MD rt Elijah Bradshaw MD MD sp4 Tiffany, Tawney, RN RN tm6 Corrections: (The following items were deleted from the chart) 05:54 05:36 Troponin High Sensitivity+C.LAB.BRZ ordered. EDMS EDMS 06:17 05:37 PMHx: Hodgkins Lymphoma; tm6 tm6 06:33 06:17 Allergies: non-hodgkins lymphoma; tm6 tm6 06:56 06:50 C-REACTIVE PROTEIN+C.LAB.BRZ ordered. EDMS EDMS 06:59 05:34 Abdomen Pelvis W Con+CT.RAD.BRZ ordered. EDMS EDMS 11:59 09:05 Intensive Care Unit rt ds4 11:59 09:05 rt ds4 12:11 11:59 [facility] ER HOLD ds4 hb 12:11 11:59 ERHOLD- ds4 hb 12:11 12:11 HLD4 hb hb
--- NOTE | 2024-01-05 09:05 | ER ---
Nurse's Notes [facility] Name: Jovana Tyson Age: 68 yrs Sex: Female : 1955 Arrival Date: 01/05/2024 Time: 05:14 Bed 4 Private MD: Diagnosis: Pain colitis;Severe sepsis;Atrial fibrillation with rapid ventricular rate Presentation: 01/04 05:31 Chief complaint: EMS states: left side abdominal pain and diarrhea for 3 days. Patient tm6 also reporting nausea. EMS stated patient is slow to answer and is forgetful, which is not her baseline. Coronavirus screen: Vaccine status: Patient reports being unvaccinated. Ebola Screen: Patient negative for fever greater than or equal to 101.5 degrees Fahrenheit, and additional compatible Ebola Virus Disease symptoms Patient denies exposure to infectious person. Patient denies travel to an Ebola-affected area in the 21 days before illness onset. No symptoms or risks identified at this time. Initial Sepsis Screen: Does the patient meet any 2 criteria? Altered Mental Status. HR > 90 bpm. Does the patient have a suspected source of infection? No. Patient's initial sepsis screen is negative. Risk Assessment: Do you want to hurt yourself or someone else? Patient reports no desire to harm self or others. Onset of symptoms was January 02, 2024. 05:31 Method Of Arrival: EMS: [facility] tm6 05:31 Acuity: VANE 3 tm6 Triage Assessment: 05:37 General: Appears in no apparent distress. Behavior is calm, cooperative. Pain: tm6 Complains of pain in left upper quadrant. Pain: Pain currently is 7 out of 10 on a pain scale. Quality of pain is described as sharp, Pain began 2-3 days ago. Also complains of nausea, diarrhea. EENT: No signs and/or symptoms were reported regarding the EENT system. Neuro: Level of Consciousness is awake, alert, obeys commands, Oriented to person, place, time, situation. Neuro: Reports EMS reports patient is forgetful and slow to respond, which is not baseline for patient. Cardiovascular: Patient's skin is warm and dry. Rhythm is sinus tachycardia. Respiratory: Airway is patent Respiratory effort is even, unlabored, Respiratory pattern is regular, symmetrical. GI: Abdomen is round non-distended, Abd is soft and non tender X 4 quads. Reports upper abdominal pain, diarrhea, nausea. : No signs and/or symptoms were reported regarding the genitourinary system. Derm: No signs and/or symptoms reported regarding the dermatologic system. Musculoskeletal: No signs and/or symptoms reported regarding the musculoskeletal system. Historical: - Allergies: 05:37 Codeine; tm6 - PMHx: 05:37 Hypertensive disorder; Hypercholesterolemia; overactive bladder; tm6 06:33 non-hodgkins lymphona; tm6 - PSHx: 05:37 tubal ligation; tm6 - Immunization history:: Adult Immunizations up to date, Client reports having NOT received the Covid vaccine. Flu vaccine is up to date. - Social history:: Smoking status: Patient denies any tobacco usage or history of. Patient/guardian denies using alcohol. - Family history:: not pertinent. Screenin:42 [facility] ED Fall Risk Assessment (Adult) History of falling in the last 3 months, tm6 including since admission No falls in past 3 months (0 pts) Confusion or Disorientation No (0 pts) Intoxicated or Sedated No (0 pts) Impaired Gait No (0 pts) Mobility Assist Device Used No (0 pt) Altered Elimination No (0 pt) Score/Fall Risk Level 0 - 2 = Low Risk Oriented to surroundings, Maintained a safe environment. Abuse screen: Denies threats or abuse. Denies injuries from another. Nutritional screening: No deficits noted. Tuberculosis screening: No symptoms or risk factors identified. Assessment: 05:42 Reassessment: see triage assessment. GI: Bowel sounds present X 4 quads. tm6 06:24 Reassessment: Patient and/or family updated on plan of care and expected duration. Pain tm6 level reassessed. Patient is alert, oriented x 3, equal unlabored respirations, skin warm/dry/pink. 07:35 Reassessment: Pt noted to be tachycardic and hypotensive, 12 lead shows a-fib RVR, ERP ph notified, see DEC. Vital Signs: 05:31 BP 133 / 101; Pulse 113; Resp 19; Temp 98(O); Pulse Ox 99% on R/A; Weight 96.5 kg; tm6 Height 5 ft. 5 in. ; Pain 7/10; 05:37 BP 105 / 94; Pulse 113; Resp 12; Pulse Ox 95% on R/A; Pain 7/10; tm6 06:23 BP 106 / 73; Pulse 113; Resp 23; Pulse Ox 97% on R/A; tm6 07:20 BP 77 / 31; Pulse 144; Resp 18; Pulse Ox 99% on R/A; ph 08:00 BP 103 / 50; Pulse 132; Resp 18; Pulse Ox 97% on R/A; ph 08:32 BP 84 / 53; Pulse 114; Resp 18; Pulse Ox 96% on R/A; ph 05:31 Body Mass Index 35.40 (96.50 kg, 165.1 cm) tm6 05:31 Pain Scale: Adult tm6 05:37 Pain Scale: Adult tm6 Vitals: 07:20 Cardiac Rhythm Assessment Atrial fibrillation W/rapid ventricular response. ph Collin Coma Score: 06:37 Eye Response: spontaneous(4). Motor Response: obeys commands(6). Verbal Response: sp4 oriented(5). Total: 15. ED Course: 05:31 Patient arrived in ED. tm6 05:33 Elijah Bradshaw MD is Attending Physician. sp4 05:37 Triage completed. tm6 05:37 Arm band placed on right wrist. tm6 05:42 Patient has correct armband on for positive identification. Placed in gown. Bed in low tm6 position. Call light in reach. Side rails up X2. Provided Education on: plan of care. Client placed on continuous cardiac and pulse oximetry monitoring. NIBP monitoring applied. monitoring and evaluation advisor on. Pulse ox on. NIBP on. Door closed. Noise minimized. Warm blanket given. 05:42 EKG done, by ED staff, reviewed by Elijah Bradshaw MD. tm6 05:44 Inserted saline lock: 22 gauge in right antecubital area, using aseptic technique. tm6 05:44 CBC with Diff Sent. tm6 05:44 CMP Sent. tm6 05:44 Lipase Sent. tm6 06:17 Urine collected: straight cath specimen, cloudy, tea colored. tm6 06:18 Urinalysis w/ reflexes Sent. tm6 06:22 Sri Allen, IOANA is Primary Nurse. tm6 06:25 Notified ED physician of a critical lab result(s). Troponin 99.2. cm10 06:54 CT Abd/Pelvis - Without Contrast In Process Unspecified. EDMS 07:00 One-on-one care X 30 minutes. kb3 07:03 Attending Physician role handed off by Elijah Bradshaw MD rt 07:03 Zeyad Mir MD is Attending Physician. rt 07:25 Lactate w/ 2H reflex if indic. Sent. tm6 07:25 Procalcitonin Sent. tm6 09:04 Earl Almanza MD is Hospitalizing Provider. rt Administered Medications: 06:18 Drug: Haloperidol IVP 2.5 mg/50 mL 2.5 mg IVP once; Place patient on a quality assurance monitor final tm6 Route: IVP; Site: right antecubital; 06:18 Drug: NS 0.9% IV 1000 ml IV at 1 bolus Per protocol; 1000 mL bolus Route: IV; Rate: 1 tm6 bolus; Site: right antecubital; 07:45 Follow up: Response: No adverse reaction; IV Status: Completed infusion; IV Intake: ph 1000ml 06:18 Drug: Famotidine IVP 20 mg IVP once; dilute with 10 mL 0.9% NaCl; give over 2 minutes tm6 Route: IVP; Site: right antecubital; 06:18 Drug: TORadol - Ketorolac IVP 15 mg IVP once Route: IVP; Site: right antecubital; tm6 06:18 Drug: Ondansetron IVP 4 mg IVP once; over 2 minutes Route: IVP; Site: right antecubital;tm6 07:35 Drug: NS 0.9% IV 1000 ml IV at 1 bolus Per protocol; 1000 mL bolus Route: IV; Rate: 1 ph bolus; Site: right antecubital; 08:31 Follow up: Response: No adverse reaction; IV Status: Completed infusion ph 07:35 Drug: Digoxin IVP 0.5 mg IVP once Route: IVP; Site: right antecubital; ph 08:15 Drug: amiodarone IVP 150 mg IVP once Route: IVP; Site: left antecubital; ph 08:50 Drug: NS 0.9% IV 1000 ml IV at 125 ml/hr continuous Route: IV; Rate: 125 ml/hr; Site: ph right antecubital; 09:01 Drug: Rocephin - Rocephin (cefTRIAXone) IVPB 1 grams IVPB once over 30 mins; (mix in 50 ph mL NS) Route: IVPB; Infused Over: 30 mins; Site: right antecubital; 09:01 Drug: amiodarone IVPB 900 mg, D5W IV 500 ml IVPB at 1 mg/min continuous; for 6 hrs, ph then change to 0.5 mg/min Route: IVPB; Rate: 1 mg/min; Site: left antecubital; 09:30 Drug: metroNIDAZOLE IVPB 500 mg 100 ml IVPB at 200 ml/hr once over 30 mins Volume: 100 ph ml; Route: IVPB; Rate: 200 ml/hr; Infused Over: 30 mins; Site: right antecubital; Medication: 05:42 VIS not applicable for this client. tm6 Intake: 07:45 IV: 1000ml; Total: 1000ml. ph Outcome: 09:05 Decision to Hospitalize by Provider. rt 14:06 Patient left the ED. ph Signatures: Dispatcher [employer] EDVT Tish Chaudhry RN RN ph Sherie Gilbert RN RN kb3 Zeyad Mir MD MD rt Elijah Bradshaw MD MD sp4 Mireya Hutchins RN RN cm10 Sri Allen RN RN tm6 Corrections: (The following items were deleted from the chart) 05:42 05:37 EKG completed in triage. Results shown to . 6 tm6 05:54 05:44 Troponin High Sensitivity+C.LAB.BRZ drawn and sent. tm6 EDVT 06:17 05:37 PMHx: Hodgkins Lymphoma; tm6 tm6 06:26 06:25 Notified ED physician of a critical lab result(s). Troponin 99.4 cm10 cm10 06:33 06:17 Allergies: non-hodgkins lymphoma; tm6 tm6 10:33 10:33 metroNIDAZOLE IVPB 500 mg 100 ml IVPB at 200 ml/hr in right antecubital over 30 ph mins ph
--- NOTE | 2024-01-05 10:11 | P.CNS ---
Date of Consult: 01/05/24 Reason for Consult: PROSPER Requesting Physician: Zeyad Mir Primary Care Provider: Dr. Almanza Chief Complaint: Abdominal Pain History of Present Illness: 68 yo F with recurrent cystitis presented to the ER with 1 week of moderate, progressive abdominal pain with associated diarrhea and malaise. Over the past two days, she reports poor oral intake with both liquids and solids. Her reports that usually does not drink water but rather sodas. She has been taking immodium and aleve this week. She took 3 aleve per day for 2-3 days. This morning she fell out of bed and demonstrated AMS. EMS detected a faint pulse with a BP 90/48. In the ER, she was found to have brown urine. She denies a history of CKD. Toradol was given in ER. She has a history of recurrent cystitis complicated by frequency, urgency and incontinence. She had a bladder stimulator placed approximately a year ago with poor results. She now follows with Dr. Izquierdo for the urinary issues. 05:34 This 68 yrs old Female presents to ER via Unassigned with complaints of sp4 Abdominal Pain, Diarrhea. 06:37 Patient reports left-sided abdominal pain starting 3 days ago associated with nausea sp4 and diarrhea. Allergies codeine Adverse Reaction (Verified 12/10/22 07:45) heart palpitations Home medications list reviewed: Yes Home Medications: Cetirizine HCl [Allergy Relief] 10 mg PO DAILY 03/14/19 Cranberry Fruit Extract [Cranberry] 425 mg PO DAILY 03/14/19 Gabapentin 300 mg PO BID 03/14/19 Losartan Potassium [Cozaar] 50 mg PO [id number] 03/14/19 Naproxen Sodium [Aleve] 220 mg PO PRN PRN 03/14/19 Sertraline HCl 50 mg PO DAILY 03/14/19 Cartilage/Collagen/Bor/Hyalur [Joint Health Tablet] 1 each PO DAILY 12/01/22 Dicyclomine HCl 10 mg PO TID 12/01/22 Estradiol [Estrace] 0.5 gm VG M,W,F 12/01/22 Famotidine 40 mg PO BEDTIME 12/01/22 Fenofibrate [Tricor] 145 mg PO DAILY 12/01/22 - Past Medical/Surgical History Diabetic: No -: HTN -: NHL 2019 in remission -: Recurrent Cystitis/ Urinary Incontinence -: Left Knee OA -: Hysterectomy -: Bladder stimulatory 2022 - Social History Smoking Status: Never smoker Alcohol use: No CD- Drugs: No Review of Systems 10-point ROS is otherwise unremarkable General: Weakness, Malaise Physical Examination General: Oriented x3, Cooperative HEENT: Atraumatic Neck: Supple Respiratory: Clear to auscultation bilaterally Cardiovascular: No edema, Irregular heart rate/rhythm Gastrointestinal: Non-distended, Tenderness, Guarding Musculoskeletal: No clubbing, No contractures Integumentary: No rashes, No cyanosis Neurological: Normal speech Laboratory Data (last 24 hrs) 01/05/24 01/05/24 05:39 05:39 WBC 17.30 H Hgb 13.5 Hct 41.7 Plt Count 216 Sodium 133 L Potassium 4.5 BUN 81 H Creatinine 8.09 H Glucose 90 Total Bilirubin 3.9 H AST 65 H ALT 29 Alkaline Phosphatase 55 Lipase 11 L Imagings Data: EXAM DESCRIPTION: CT - Abdomen Pelvis Wo Contrast - 01/05/2024 6:53 am CLINICAL HISTORY: Abdominal pain. ABD PAIN COMPARISON: <Comparisons> TECHNIQUE: CT imaging of the abdomen and pelvis was performed without contrast. Solid organ, bowel and vascular assessment is limited due to lack of IV and oral contrast. All CT scans are performed using dose optimization technique as appropriate and may include automated exposure control or mA/KV adjustment according to patient size. FINDINGS: The lower lung shankar are clear. The liver, spleen, pancreas, adrenal glands and kidneys are within normal limits for a limited non-contrast examination.Cholecystectomy. No bowel obstruction, free air, free fluid or abscess. The colon appears mildly fluid distended throughout its course. Wall thickening is present throughout the colon is mild. No evidence pneumatosis coli. The appendix is normal. Moderate fat containing umbilical. Moderate lower lumbar degenerative changes. IMPRESSION: [id number] pancolitis. A limited non-contrast examination was performed as detailed. Conclusions/Impression: Stage III PROSPER in the setting of hypotension, hypovolemia, aleve and losartan may be prerenal azotemia complicated by ATN (Toradol given in the ER) Proteinuria -No NSAIDs -Continue aggressive IVF -IVF bolus as ordered -Continue Ward -Check hepatitis panel Hyponatremia -Continue IVF with NS AG Acidosis in the setting of PROSPER -Consider bicarb as needed -LR IVF bolus as ordered Hypovolemic shock Distributive shock in the setting of sepsis? -IVF bolus as ordered -Continue IVF with NS Hypoalbuminemia -Advance nutrition as tolerated Sepsis C.diff PanColitis Acute on Chronic Cystitis -Follow up cultures -Continue IVF -Continue Abx -ID consult Hospitalist and ER notes reviewed Greater than 30min patient care Thank you kindly for the consultation
[2024-01-05] MEDS: NA CHLORIDE 0.9% 1,000 ML IV SCH (10:49)
[2024-01-05] MEDS: Ringers Lactate 1,000 ML IV ONE ×2 (11:09→20:45)
[2024-01-05] MEDS ORDERED: Ringers Lactate 1,000 ML IV ONE ×2 (11:22→15:52)
--- NOTE | 2024-01-05 15:14 | CON ---
Date of Consultation: 01/05/2024 Reason For Consultation: Atrial fibrillation with rapid ventricular response, elevated troponin. History Of Present Illness: 68-year-old with a past medical history of hypertension, dyslipidemia, p resented to the emergency room with diffuse abdominal pain and massive diarrhea and was extremely hyp otensive, blood pressure was low. On admission, received 2 L of fluids and blood pressure now systol ic in the mid 80s. She denies having any chest pain, but while in the ER, she went into AFib with RV R, started on amiodarone drip and now her heart rate is in the 110 range. Denies having any chest pa in. No shortness of breath. Past Medical History: As outlined above in the HPI. Medications: Refer to reconciliation sheet for detailed list. Allergies: CODEINE. Family History: No premature coronary artery disease or cancer. Social History: She does not smoke or drink. Does not use any drugs. Review of Systems: All systems were reviewed, they were negative except what was mentioned in HPI. Physical Examination: Vital Signs: Reviewed. Head and Neck: Pupils are equal, reactive to light. Intact eye movements. No JVD. No cervical lym phadenopathy. Neck is supple. Thyroid is not enlarged. Lungs: Clear to auscultation bilaterally. No rhonchi, wheezing, or crackles. No accessory muscle u se. Heart: Irregularly irregular. No extra sounds. Abdomen: Soft, nontender. Bowel sounds are positive. No organomegaly. No masses or hernia. No ri gidity or rebound. Extremities: No edema, clubbing, or cyanosis. Intact pulses. Skin: No rash or nodule. Neuro: Alert, awake, oriented x3. No acute focal deficits appreciated. Investigations: BUN 81, creatinine is 8.09. The creatinine was normal in November last year. NT-pr oBNP is 409. Troponin is 99. Assessment And Recommendations: 1.Atrial fibrillation with rapid ventricular response, likely due to the major fluid shifts that is happening. Continue amiodarone for 24 hours load and then switch to oral 200 mg twice a day afterwar ds. I believe that she will convert to sinus rhythm once her fluid status gets corrected. Obtain an echo. 2.Elevated troponin. No chest pain. Likely demand. However, trend 2 more sets of cardiac enzymes and monitor closely. 3.Acute renal failure due to severe dehydration from hypovolemic shock. Aggressive IV fluids and lisa cox she might require pressors and Nephrology is on board. SR/MODL Voice ID: [id number] Report ID: [id number]
[2024-01-05] MEDS: Mupirocin NASAL 2 APPL/1 GM TUBE NAS SCH (15:15)
[2024-01-05] MEDS: NOREPINEPHRINE 4 MG in D5W 250 ML IV SCH (15:33)
[2024-01-05 15:41] LABS: CDIFF INTERNAL NEG CONTROL White Background (WHITE BKGD); STOOL CONSISTENCY Liquid/Semi-Solid
[2024-01-05 15:43] LABS: C.diff Antigen/Toxin Ag pos : Tox pos (NEG : NEG)
--- NOTE | 2024-01-05 17:43 | P.HP ---
Certification for Inpatient Patient admitted to: Inpatient With expected LOS: >2 Midnights Practitioner: I am a practitioner with admitting privileges, knowledge of patient current condition, hospital course, and medical plan of care. Services: Services provided to patient in accordance with Admission requirements found in Title 42 Section 412.3 of the Code of Federal Regulations Patient History Date of Service: 01/05/24 Primary Care Provider: Dr. Almanza Reason for admission: DIARRHEA AND WEAKNESS FOR A WEEK History of Present Illness: MONCHO HAS HAD DIARRHEA THAT IS SEVERE FOR A WEEK, SHE COMES TO ER WITH WEAKNESS AND ABDOMEN PAIN. I SAW HER THIS AM AT 8. I ASKED FOR STAT C DIFF TEST. IV FLUIDS, ICU ADMISSION. I HAVE BEEN IN CONTACT WITH NURSES FEW TIMES TODAY. SHE HAD TO BE STARTED ON LEVEOPHED A BP DROPPED TO 60 SYSTOLIC DESPITE IV FLUIDS. WE STARTED PATIENT ON ORAL VANCO, RECTAL VANCO AND IV FLAGYL SHE IS SEPTIC FROM C DIFF COLITIS. CT CONFIRMS GARCIA COLITIS. 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 I TALKED TO HIM THIS AM AT BEDSIDE. SHE ALSO WENT INTO RAPID A FIB AND I ASKED NURSE TO START AMIODARONE DRIP STAT. Allergies codeine Adverse Reaction (Verified 12/10/22 07:45) heart palpitations Home medications list reviewed: Yes Home Medications: Cetirizine HCl [Allergy Relief] 10 mg PO DAILY 03/14/19 Cranberry Fruit Extract [Cranberry] 425 mg PO DAILY 03/14/19 Gabapentin 300 mg PO BID 03/14/19 Losartan Potassium [Cozaar] 50 mg PO [id number] 03/14/19 Naproxen Sodium [Aleve] 220 mg PO PRN PRN 03/14/19 Sertraline HCl 50 mg PO DAILY 03/14/19 Cartilage/Collagen/Bor/Hyalur [Joint Health Tablet] 1 each PO DAILY 12/01/22 Dicyclomine HCl 10 mg PO TID 12/01/22 Estradiol [Estrace] 0.5 gm VG M,W,F 12/01/22 Famotidine 40 mg PO BEDTIME 12/01/22 Fenofibrate [Tricor] 145 mg PO DAILY 12/01/22 - Past Medical/Surgical History Diabetic: No -: HTN -: NHL 2019 in remission -: Recurrent Cystitis/ Urinary Incontinence -: Left Knee OA -: Hysterectomy -: Bladder stimulatory 2022 - Social History Alcohol use: No CD- Drugs: No Review of Systems 10-point ROS is otherwise unremarkable General: Weakness, Malaise, As per HPI Gastrointestinal: Abdominal Pain Physical Examination - Vital Signs Temperature: 97.8 F Blood Pressure: 130/84 Pulse: 82 Respirations: 16 Pulse Ox (%): 95 - Physical Exam General: Oriented x3 (LETHARGIC), Severe distress, Other (SEVERELY DEHYDRATED ON CLNICAL EXAM. ) HEENT: Atraumatic, PERRLA, Mucous membr. moist/pink, EOMI, Sclerae nonicteric Neck: Supple, 2+ carotid pulse no bruit, No LAD, Without JVD or thyroid abnormality Respiratory: Clear to auscultation bilaterally, Normal air movement Cardiovascular: Regular rate/rhythm, Normal S1 S2 Gastrointestinal: Normal bowel sounds, Tenderness (DIFFUSE, NO REBOUND.) Musculoskeletal: No tenderness Integumentary: No rashes Neurological: Normal gait, Normal speech, Normal strength at 5/5 x4 extr, Normal tone, Normal affect Lymphatics: No axilla or inguinal lymphadenopathy - Studies Laboratory Data (last 24 hrs) 01/05/24 01/05/24 05:39 05:39 WBC 17.30 H Hgb 13.5 Hct 41.7 Plt Count 216 Sodium 133 L Potassium 4.5 BUN 81 H Creatinine 8.09 H Glucose 90 Total Bilirubin 3.9 H AST 65 H ALT 29 Alkaline Phosphatase 55 Lipase 11 L Assessment and Plan - Problems (Diagnosis) (1) Acute renal failure Current Visit: Yes Status: Acute Plan: THIS IS POSSIBLY REVERSIBLE IF SHE HAS ONLY PRERENAL COMPONENT ATN IS ALSO POSSIBLE FROM HYPOVOLEMIC SHOCK. IV FLUIDS LEVOPHED IV RENAL MD CONSULTED. (2) C. difficile colitis Current Visit: Yes Status: Acute Plan: SEVERE CONDITION WILL START TRIPLE THERAPY ABOVE. MAY CHANGE TO ORAL WHEN MORE STABLE. (3) Septic shock Current Visit: Yes Status: Acute Plan: ABOVE IV FLUIDS LEVOPHED DAILY LAB. PICC LINE. (4) A-fib Current Visit: Yes Status: Acute Plan: AMIODARONE DRIP HEPARIN SC CAN'T GIVE LOVENOX FOR NOW ORAL INTAKE IS NOT PROPER. WILL START ELIQUIS LATER. - Advance Directives Does patient have a Living Will: No Does patient have a Durable POA for Healthcare: No
[2024-01-05] MEDS: METRONIDAZOLE 500mg IVPB 500 MG/100 ML BAG IV SCH (17:52)
[2024-01-05] MEDS: VANCOMYCIN HCL 125 MG CAPSULE PO SCH (17:52)
[2024-01-05] MEDS: VANCOMYCIN 500 MG PR SCH (17:52)
[2024-01-05] MEDS: SODIUM CHLORIDE PR SCH (17:52)
[2024-01-05] MEDS: NOREPINEPHRINE 16 MG in D5W 250 ML IV SCH (19:00)
--- NOTE | 2024-01-05 19:29 | RAD REPORT ---
EXAM DESCRIPTION: [facility] Single View01/05/2024 7:08 pm CLINICAL HISTORY: PICC line COMPARISON: No comparisons TECHNIQUE: Portable AP view of the chest. FINDINGS: Left arm PICC has been placed, with catheter tip projecting over the mid SVC. The lungs ar e clear apart from mild central interstitial prominence which may relate to decreased inspiratory eff ort. No pneumothorax or effusion. The cardiomediastinal contours are unremarkable. IMPRESSION: Satisfactory positioning of left arm PICC. Mild central interstitial prominence versus decreased inspiratory effort.
[2024-01-06 05:40] LABS: Absolute Basophils 0.1 K/uL (0-0.5); Absolute Eosinophils 0.3 K/uL (0-0.5); Absolute Lymphocytes (CBC) 1.6 K/uL (0.7-4.9); Absolute Monocytes 0.4 K/uL (0.1-1.3); Absolute Neutrophil 11.9 K/uL (1.8-8.0); Basophils % 0.4 % (0-1.3); Eosinophils % 2.1 % (0-4.4); Hematocrit 34.8 % (36.0-45.0); Hemoglobin 11.5 g/dL (12.0-15.0); Lymphocytes % 11.2 % (15.3-44.8); MCH 29.6 pg (27.0-35.0); MCV 89.8 fL (80-100); MPV 8.6 fL (7.6-11.3); Monocytes % 2.6 % (3.3-12.3); Neutrophils % 83.7 % (41.7-73.7); Nucleated Red Blood Cells % 0.2 % (0-0); Platelets 169 thou/uL (152-406); RBC Red Blood Cell Count 3.88 M/uL (3.86-4.86); Red Cell Distribution Width 13.4 % (12.1-15.2)
[2024-01-06 05:55] LABS: UR CL RANDOM 53 mmol/L (25-40); UR SODIUM 55 mmol/L (27-287)
[2024-01-06 05:57] LABS: Specific Gravity 1.007 (1.005-1.030); Sqamous Epithelial <5 /HPF (None Seen); UR POTASSIUM < 6.0 mmol/L (20-40); Urine Bacteria <20 /HPF (<20); Urine Bilirubin NEGATIVE (Negative); Urine Blood 2+ (Negative); Urine Clarity Extremely Turbid (Clear); Urine Color Yellow (Yellow); Urine Culture Reflex Order REFLEXED; Urine Glucose NEGATIVE (Negative); Urine Ketones NEGATIVE (Negative); Urine Micro Reflex YN NO BILL MICROSCOPIC; Urine Mucus Slight /HPF (None Seen); Urine Nitrite NEGATIVE (Negative); Urine Protein TRACE (Negative); Urine Urobilinogen Normal (Normal); Urine WBC 20-50 /HPF (<5); Urine WBC Clump Rare /HPF (None Seen)
[2024-01-06 06:03] LABS: Albumin 1.9 g/dL (3.4-5.0); Albumin/Globulin Ratio 0.5 (1.1-1.8); Anion Gap 12.5 mEq/L (5.0-15.0); Bilirubin Total 3.6 mg/dL (0.2-1.0); Globulin 3.5 g/dL (2.3-3.5); Magnesium 1.2 mg/dL (1.6-2.4); Phosphorus 3.1 mg/dL (2.5-4.9); Potassium 4.5 mEq/L (3.5-5.1); Protein, Total 5.4 g/dL (6.4-8.2); Uric Acid 7.6 mg/dL (2.6-6.0)
[2024-01-06] MEDS: AMIODARONE IN DEXTROSE,ISO-OSM 360 MG/200 ML BAG IV ONE (06:56)
--- NOTE | 2024-01-06 07:42 | P.PN ---
Subjective Date of Service: 01/06/24 Primary Care Provider: Dr. Almanza Chief Complaint: SEVERE C DIFF COLITIS, ARF, A FIB Subjective: Improving MONCHO LOOKS LOT BETTER THAN YESTERDAY. STILL NEEDING LEVOPHED FOR PRESSURE SUPPORT. SHE IS ON TRIPLE THERAPY FOR C DIFF. DR. ARAIZA GAVE BOLUS OF RL LAST NIGHT. Review of Systems is unable to be obtained Physical Examination - Vital Signs Temperature: 98.1 F Blood Pressure: 92/55 Pulse: 95 Respirations: 27 Pulse Ox (%): 97 - Physical Exam General: Oriented x2, Mild distress, Confused, Obese HEENT: Atraumatic, PERRLA, EOMI Neck: Supple, JVD not distended Respiratory: Clear to auscultation bilaterally, Normal air movement Cardiovascular: Regular rate/rhythm, Normal S1 S2 Gastrointestinal: Tenderness Musculoskeletal: No tenderness Integumentary: No rashes Neurological: Normal speech, Normal tone, Normal affect Lymphatics: No axilla or inguinal lymphadenopathy - Studies Medications List Reviewed: Yes Assessment And Plan - Current Problems (Diagnosis) (1) Acute renal failure Current Visit: Yes Status: Acute Plan: THIS IS POSSIBLY REVERSIBLE IF SHE HAS ONLY PRERENAL COMPONENT ATN IS ALSO POSSIBLE FROM HYPOVOLEMIC SHOCK. IV FLUIDS LEVOPHED IV RENAL MD CONSULTED. CREAT IS DOWN TO 5. BICARB LOW. RENAL MD TEODORA CALLED (2) C. difficile colitis Current Visit: Yes Status: Acute Plan: SEVERE CONDITION WILL START TRIPLE THERAPY ABOVE. MAY CHANGE TO ORAL WHEN MORE STABLE. (3) Septic shock Current Visit: Yes Status: Acute Plan: ABOVE IV FLUIDS LEVOPHED DAILY LAB. PICC LINE. STILL ON LEVOPHED IMPROVING. (4) A-fib Current Visit: Yes Status: Acute Plan: AMIODARONE DRIP HEPARIN SC CAN'T GIVE LOVENOX FOR NOW ORAL INTAKE IS NOT PROPER. WILL START ELIQUIS LATER. STABLE ON AMIO HEP SC (5) Hypomagnesemia Current Visit: Yes Status: Acute Plan: REPLACE AND FU (6) Protein calorie malnutrition Current Visit: Yes Status: Acute Plan: PPN FOR SHORT DURATION LOW ALB FROM ACUTE ILLNESS.
[2024-01-06] MEDS: INFLUENZA VACCINE (for 6+ mo) 0.5 ML DOSE IMVAC ONE (09:00)
[2024-01-06] MEDS: Magnesium Sulfate 2gm IVPB 2 G/50 ML BAG IV ONE (09:17)
[2024-01-06] MEDS: D5 0.45 NS 1,000 ML with NA BICARB 8.4% 75 MEQ IV SCH (09:46)
[2024-01-06] MEDS: NA CHLORIDE 0.9% 1,000 ML IV ONE (10:41)
[2024-01-06] MEDS ORDERED: AMIODARONE HCL 200 MG TAB ONE (10:41)
[2024-01-06 10:42] LABS: Band Neutrophils 1 % (0-1); Differential Total Cells Count 100; Eosinophils 3 % (0-3); Lymphocytes 19 % (15-42); Monocytes 11 % (0-10); Segmented Neutrophils 62 % (40-80)
[2024-01-06] MEDS: AMIODARONE HCL 200 MG TAB PO SCH (10:42)
[2024-01-06 10:43] LABS: Blood Morphology Comment NOT SEEN (NOT SEEN); Dohle Bodies PRESENT; Metamyelocytes 2 % (0-0); Myelocytes 2 % (0-0); Platelet Estimate ADEQ; Toxic Granulation 1+
--- NOTE | 2024-01-06 11:00 | P.CNS ---
Date of Consult: 01/06/24 Reason for Consult: SHOCK Primary Care Provider: Dr. Almanza Chief Complaint: SEVERE C DIFF COLITIS, ARF, A FIB History of Present Illness: Patient is 68 years of age admitted with hypotension cell colitis A-fib is currently on Levophed confused and is now receiving vancomycin and Flagyl any abdominal pain Allergies codeine Adverse Reaction (Verified 12/10/22 07:45) heart palpitations Home Medications: Cetirizine HCl [Allergy Relief] 10 mg PO DAILY 03/14/19 Cranberry Fruit Extract [Cranberry] 425 mg PO DAILY 03/14/19 Gabapentin 300 mg PO BID 03/14/19 Losartan Potassium [Cozaar] 50 mg PO [id number] 03/14/19 Naproxen Sodium [Aleve] 220 mg PO PRN PRN 03/14/19 Sertraline HCl 50 mg PO DAILY 03/14/19 Cartilage/Collagen/Bor/Hyalur [Joint Health Tablet] 1 each PO DAILY 12/01/22 Dicyclomine HCl 10 mg PO TID 12/01/22 Estradiol [Estrace] 0.5 gm VG M,W,F 12/01/22 Famotidine 40 mg PO BEDTIME 12/01/22 Fenofibrate [Tricor] 145 mg PO DAILY 12/01/22 - Past Medical/Surgical History Diabetic: No -: HTN -: NHL 2019 in remission -: Recurrent Cystitis/ Urinary Incontinence -: Left Knee OA -: Hysterectomy -: Bladder stimulatory 2022 - Social History Smoking Status: Never smoker Alcohol use: No CD- Drugs: No Caffeine use: No Place of Residence: Home Review of Systems is unable to be obtained Physical Examination Temp Pulse Resp BP Pulse Ox 98.1 F 95 H 27 H 92/55 L 97 01/06/24 07:42 01/06/24 07:42 01/06/24 07:42 01/06/24 07:42 01/06/24 07:42 General: Alert, Delirious Respiratory: Clear to auscultation bilaterally Cardiovascular: No edema Gastrointestinal: Normal bowel sounds, Soft and benign Musculoskeletal: No clubbing, No contractures - Problems (1) Septic shock Current Visit: Yes Status: Acute Plan: Patient is 68 years of age admitted with C. difficile colitis and hypotension in addition to acute renal failure elevated white count elevated lactic acid patient has mild to moderate colitis another bolus of a liter of IV fluid function is improved condition satisfactory x-ray shows some cardiomegaly cultures urine cultures negative
--- NOTE | 2024-01-06 11:24 | P.PN ---
(S) Pt remains in the ICU, BP remains soft, remains on pressor support, MAP > 70 on screen. Has had BM following Vanc enemas ordered by primary team but no on going profuse diarrhea. No abd pain reported (O) Vitals reviewed in the EMR General: NAD, Cooperative HEENT: Atraumatic, sclera anicteric Neck: Supple Respiratory: No distress, non tachypnec, b/l air entry Cardiovascular: No edema, mildly tachy Gastrointestinal: Non-distended, no sig TTP, no guarding Musculoskeletal: No sig edema, contractures Integumentary: No rashes Neurological: Normal speech, awake, alert, non focal Laboratory Data (last 24 hrs) Reviewed in the EMR Conclusions/Impression: Stage III ARF (on possible underlying CKD NOS) in the setting of severe hypotension, hypovolemia, recent NSAIDs/DEXTER inhibitor use likely all leading to ATN -Fortunately non oliguric -Cr level is downward trending, repeat metab profile/labs late afternoon to monitor closely -Continue IVF hydration Hyperchloremic metab acidosis -Switch maintenance IVF to D51/2 NS + sodium bicarb Hypovolemic shock +/- distributive with sepsis -Cont pressor support, bolus crystalloids/colloids as indicated, LA had normalized. Abnormal findings in urine, pyuria. Bacteriuria -Even though urine culture final suggesting mixed lee, recommend gram negative coverage. Will order Rocephin for now C.diff PanColitis -Management per primary team
--- NOTE | 2024-01-06 11:55 | EKG ---
Test Date: 2024-01-05 Test Time: 06:28:57 Textile Stylist: BI MEASUREMENT RESULTS: Intervals: Rate: 153 MT: QRSD: 96 QT: 294 QTc: 469 [place]: P: MT: QRS: 48 T: -2 INTERPRETIVE STATEMENTS: Atrial fibrillation Abnormal ECG Compared to ECG 01/05/2024 04:32:44 Sinus tachycardia no longer present Electronically Signed On 01-06-24 11:50:10 CDT by Gagan Simms
--- NOTE | 2024-01-06 11:55 | EKG ---
Test Date: 2024-01-05 Test Time: 04:32:44 Audio Video Repairer: BI MEASUREMENT RESULTS: Intervals: Rate: 113 HI: 152 QRSD: 92 QT: 348 QTc: 477 [place]: P: 51 HI: 152 QRS: -4 T: 16 INTERPRETIVE STATEMENTS: Sinus tachycardia Otherwise normal ECG Compared to ECG 03/05/2004 13:53:00 Sinus rhythm no longer present Electronically Signed On 01-06-24 11:50:12 CDT by Gagan Simms
--- NOTE | 2024-01-06 12:39 | PN ---
Date of Progress Note: 01/06/2024 Subjective: Seen by bedside. Heart rate has been stable on amiodarone. Review of Systems: No chest pain, shortness of breath, orthopnea, cough. Has diarrhea. No nausea, vomiting, or abdomin al distention. Has abdominal discomfort. All other systems reviewed, they are negative. Physical Examination: Vital Signs: Reviewed. Head and Neck: Pupils are equal, reactive to light. Intact eye movements. No JVD. No cervical lym phadenopathy. Neck is supple. Thyroid is not enlarged. Lungs: Clear to auscultation bilaterally. No rhonchi, rales, or crackles. No accessory muscle use. Heart: Regular rate and rhythm. No extra sounds. Abdomen: Soft, nontender. Bowel sounds positive. No organomegaly. No masses or hernia. No rigidi ty or rebound. Extremities: No edema, clubbing, cyanosis. Intact pulses. Skin: No rash or nodule. Neuro: Alert, awake, oriented x3. No acute focal deficits appreciated. Investigations: Creatinine today is 5.9, BUN 76, and hemoglobin is 11.5. Assessment/recommendation: 1.Atrial fibrillation, converted to sinus rhythm. Amiodarone switched to oral 200 mg twice a day an d needs some form of anticoagulation as her CHADVASC score is elevated. When she is more stable, she will need to be placed on Eliquis once her kidney function stabilizes. 2.Acute renal failure due to severe dehydration due to C. diff colitis, improving with fluids. 3.Septic shock due to C. diff colitis, on wide-spectrum antibiotics and IV fluids. SR/MODL Voice ID: [id number] Report ID: [id number]
[2024-01-06] MEDS ORDERED: CEFTRIAXONE 2000 MG/VIAL ONE (12:53)
[2024-01-06] MEDS ORDERED: NA CHLORIDE 0.9% 100 ML ONE (12:53)
[2024-01-06] MEDS: CEFTRIAXONE 2,000 MG in NA CHLORIDE 0.9% 100 ML IV SCH (12:56)
[2024-01-06 15:16] LABS: MA/CREAT RATIO 162.2 (< 30.0); Urine Protein/Creatinine Ratio 0.97 ratio (<0.15)
[2024-01-06] MEDS: FIDAXOMICIN 200 MG TABLET PO SCH (20:14)
[2024-01-06] MEDS: HEPARIN 5000 UNIT/ML 1 ML VIAL SQ SCH (20:41)
[2024-01-06] MEDS: MAGNESIUM CHLORIDE 64 MG TAB PO SCH (21:39)
[2024-01-07 05:54] LABS: Anion Gap 12.8 mEq/L (5.0-15.0); Magnesium 1.3 mg/dL (1.6-2.4); Potassium 3.8 mEq/L (3.5-5.1)
[2024-01-07] MEDS: Magnesium Sulfate 2gm IVPB 2 G/50 ML BAG IV ONE (06:25)
[2024-01-07 06:42] LABS: Absolute Eosinophils 0.4 K/uL (0-0.5); Absolute Lymphocytes (CBC) 0.9 K/uL (0.7-4.9); Absolute Monocytes 0.3 K/uL (0.1-1.3); Absolute Neutrophil 10.1 K/uL (1.8-8.0); Basophils % 0.2 % (0-1.3); Eosinophils % 3.3 % (0-4.4); Hematocrit 34.9 % (36.0-45.0); Hemoglobin 11.4 g/dL (12.0-15.0); MCH 29.4 pg (27.0-35.0); MCHC 32.8 g/dL (32.0-36.0); MCV 89.8 fL (80-100); MPV 9.2 fL (7.6-11.3); Monocytes % 2.3 % (3.3-12.3); Neutrophils % 86.2 % (41.7-73.7); Platelets 85 thou/uL (152-406); RBC Red Blood Cell Count 3.88 M/uL (3.86-4.86); Red Cell Distribution Width 13.3 % (12.1-15.2)
[2024-01-07 07:10] LABS: Band Neutrophils 2 % (0-1); Differential Total Cells Count 100; Eosinophils 5 % (0-3); Lymphocytes 19 % (15-42); Metamyelocytes 2 % (0-0); Monocytes 5 % (0-10); Segmented Neutrophils 65 % (40-80)
[2024-01-07 07:11] LABS: Blood Morphology Comment NOT SEEN (NOT SEEN); Dohle Bodies PRESENT; Platelet Estimate DECR; Toxic Granulation NOTED
[2024-01-07] MEDS ORDERED: CEFTRIAXONE 2000 MG/VIAL ONE (09:04)
[2024-01-07] MEDS ORDERED: NA CHLORIDE 0.9% 0 ML ONE (09:04)
--- NOTE | 2024-01-07 09:44 | P.PN ---
Subjective Date of Service: 01/07/24 Primary Care Provider: Dr. Almanza Chief Complaint: SEVERE C DIFF COLITIS, ARF, A FIB Subjective: Worsening MONCHO LOOKS LOT BETTER THAN YESTERDAY. STILL NEEDING LEVOPHED FOR PRESSURE SUPPORT. SHE IS ON TRIPLE THERAPY FOR C DIFF. DR. ARAIZA GAVE BOLUS OF RL LAST NIGHT. SHE DOES NOT LOOK GOOD TODAY. CONFUSED. WEAK. Review of Systems is unable to be obtained Physical Examination - Vital Signs Temperature: 97.7 F Blood Pressure: 118/67 Pulse: 111 Respirations: 26 Pulse Ox (%): 96 - Physical Exam General: Oriented x1, Moderate distress, Obese HEENT: Atraumatic, PERRLA, EOMI Neck: Supple, JVD not distended Respiratory: Clear to auscultation bilaterally, Normal air movement Cardiovascular: Regular rate/rhythm, Normal S1 S2 Gastrointestinal: Hypoactive Musculoskeletal: No tenderness Integumentary: No rashes Neurological: Normal speech, Normal tone, Normal affect Lymphatics: No axilla or inguinal lymphadenopathy - Studies Microbiology Data (last 24 hrs): 01/05/24 06:12 Clean Catch Urine [place] Count - Final >100,000 CFU/ML. 01/05/24 06:12 Clean Catch Urine - Final MIXED HOWIE. Medications List Reviewed: Yes Assessment And Plan - Current Problems (Diagnosis) (1) Acute renal failure Current Visit: Yes Status: Acute Plan: THIS IS POSSIBLY REVERSIBLE IF SHE HAS ONLY PRERENAL COMPONENT ATN IS ALSO POSSIBLE FROM HYPOVOLEMIC SHOCK. IV FLUIDS LEVOPHED IV RENAL MD CONSULTED. CREAT IS DOWN TO 5. BICARB LOW. RENAL MD ARAIZA CALLED CREAT IS DOWN. STABLE FOR NOW. (2) C. difficile colitis Current Visit: Yes Status: Acute Plan: SEVERE CONDITION WILL START TRIPLE THERAPY ABOVE. MAY CHANGE TO ORAL WHEN MORE STABLE. STOP ROCEPHIN. CONTINUE DIFFICID ADD BACK FLAGYL IV. SHE IS NOT ABLE TO RETAIN VANCOMYCIN ENEMA. (3) Septic shock Current Visit: Yes Status: Acute Plan: ABOVE IV FLUIDS LEVOPHED DAILY LAB. PICC LINE. STILL ON LEVOPHED IMPROVING. (4) A-fib Current Visit: Yes Status: Acute Plan: AMIODARONE DRIP HEPARIN SC CAN'T GIVE LOVENOX FOR NOW ORAL INTAKE IS NOT PROPER. WILL START ELIQUIS LATER. STABLE ON AMIO HEP SC IN SINUS TACH DC HEPARIN PLATELETS ARE DROPPING LOWER. (5) Hypomagnesemia Current Visit: Yes Status: Acute Plan: REPLACE AND FU (6) Protein calorie malnutrition Current Visit: Yes Status: Acute Plan: PPN FOR SHORT DURATION LOW ALB FROM ACUTE ILLNESS. (7) Abnormal urinalysis Current Visit: Yes Status: Acute Plan: NO NEED TO TREAT FOR NOW. SHE HAS NOSS TREATING THIS WILL FEED C DIFF THAT IS A MAJOR PROBLEM NOW. CANCEL DR. HUIZAR CONSULT. CONTINUE C DIFF THERAPY.
--- NOTE | 2024-01-07 10:14 | PN ---
Date of Progress Note: 01/07/2024 Subjective: Seen by bedside. She remains in sinus rhythm, heart rate in the low 100 to 110. Review of Systems: No chest pain, shortness of breath, orthopnea, or cough. Positive diarrhea. All other systems revie wed are negative. Physical Examination: Vital Signs: Reviewed. Head and Neck: Pupils are equal, reactive to light. Intact eye movements. No JVD. No cervical lym phadenopathy. Neck is supple. Thyroid is not enlarged. Lungs: Clear to auscultation bilaterally. No rhonchi, rales, or crackles. No accessory muscle use. Heart: Regular rate and rhythm. Tachycardic. Abdomen: Soft, nontender. Bowel sounds positive. No organomegaly. No masses or hernia. No rigidi ty or rebound. Extremities: No edema, clubbing, or cyanosis. Intact pulses. Skin: No rash. No nausea. Neurologic: Alert, awake, oriented x3. No acute focal deficits appreciated. Investigations: Creatinine 3.49. Assessment/recommendation: 1.Atrial fibrillation with rapid ventricular response, now is in sinus. Continue amiodarone 200 mg twice a day by mouth and recommend low-dose Eliquis 2.5 mg twice a day. 2.Acute renal failure due to severe dehydration, improving with fluids. Continue current management . 3.Septic shock due to C difficile colitis. Under proper treatment. Her symptoms are under control. SR/MODL Voice ID: [id number] Report ID: [id number]
--- NOTE | 2024-01-07 10:54 | P.PN ---
Subjective Date of Service: 01/07/24 Primary Care Provider: Dr. Almanza Chief Complaint: SEVERE C DIFF COLITIS, ARF, A FIB Subjective: Improving (And is doing better is more oriented today and less delirious) Review of Systems General: Weakness Gastrointestinal: Abdominal Pain, Diarrhea Physical Examination - Vital Signs Temperature: 97.7 F Blood Pressure: 118/67 Pulse: 111 Respirations: 26 Pulse Ox (%): 96 - Physical Exam General: Alert, Oriented x1 Respiratory: Clear to auscultation bilaterally Cardiovascular: No edema, Regular rate/rhythm, Normal S1 S2 Gastrointestinal: Tenderness (Mild diffuse abdominal Tenderness positive bowel sound) - Studies Microbiology Data (last 24 hrs): 01/05/24 06:12 Clean Catch Urine [place] Count - Final >100,000 CFU/ML. 01/05/24 06:12 Clean Catch Urine - Final MIXED HOWIE. Medications List Reviewed: Yes Assessment And Plan - Current Problems (Diagnosis) (1) C. difficile colitis Current Visit: Yes Status: Acute Plan: He is doing better continue with Dificid started on Flagyl improving off vasopressors renal function has also improved stopping antibiotic there is a negative so far is on IV fluid allergy to adjust the IV fluids
--- NOTE | 2024-01-07 11:06 | RAD REPORT ---
EXAM DESCRIPTION: [facility] Single View01/07/2024 10:56 am CLINICAL HISTORY: She shortness of breath COMPARISON: December 28, 2023 FINDINGS: The patient is in a poor degree of inspiration. Mild right basilar opacities probably atelectasis Left lung appears clear. Heart is borderline enlarged
[2024-01-07] MEDS ORDERED: NACHLORIDE 0.45% 1,000 ML IV ONE ×2 (13:44→23:39)
[2024-01-07] MEDS: NACHLORIDE 0.45% 1,000 ML IV SCH (13:46)
--- NOTE | 2024-01-07 13:50 | PN ---
Date of Progress Note: 01/07/2024 Subjective: The patient is seen and examined at bedside. She is doing better. Her vital signs have been improving and her blood pressures have remained stable. Her diarrhea is also better. Objective: General: She appears in no acute distress. Lungs: Clear to auscultation. Abdomen: Soft and nontender. Cardiac: Auscultation of the heart reveals regular rate and rhythm. Extremities: Showed no evidence of edema. Neurologic: She is more alert and awake, but still a little confused. Laboratory Data: At this time are showing creatinine improving to 3.49, BUN improving to 42, sodium of 143, and potassium of 3.8 and chloride of 112. Bicarb has improved to 22. CBC showing stable hem oglobin, hematocrit, and platelet count of 85 that has dropped and WBC count of 11.7. Current Medications: Include D5 half NS with sodium bicarbonate, fidaxomicin, metronidazole. She is not getting any heparin at this time. Impression: 1.Acute renal failure secondary to acute tubular necrosis, currently with improving renal function. I will change the IV fluids to just half-normal saline without the sodium bicarbonate as her serum b icarb levels are being improving. 2.Clostridium difficile colitis, remains on fidaxomicin and metronidazole. 3.Hypotension, improving. 4.Atrial fibrillation, rate controlled. 5.Altered mental status secondary to metabolic encephalopathy, currently improving at this time. Plan: Overall the patient is clinically doing okay. I will go ahead and continue with IV hydration, but with just half NS without the sodium bicarbonate and monitor her renal function and follow up closely. VV/MODL Voice ID: [id number] Report ID: [id number]
[2024-01-07] MEDS: METRONIDAZOLE 500mg IVPB 500 MG/100 ML BAG IV SCH (16:50)
[2024-01-08 05:16] LABS: Hematocrit 35.4 % (36.0-45.0); Hemoglobin 11.7 g/dL (12.0-15.0); MCH 29.5 pg (27.0-35.0); MCHC 33.1 g/dL (32.0-36.0); MCV 89.1 fL (80-100); MPV 9.1 fL (7.6-11.3); Platelets 66 thou/uL (152-406); RBC Red Blood Cell Count 3.97 M/uL (3.86-4.86); Red Cell Distribution Width 13.5 % (12.1-15.2)
[2024-01-08 05:27] LABS: Anion Gap 10.7 mEq/L (5.0-15.0); Potassium 3.7 mEq/L (3.5-5.1)
[2024-01-08 06:40] LABS: Blood Morphology Comment NOT SEEN (NOT SEEN); Dohle Bodies PRESENT; Platelet Estimate DECR
[2024-01-08 06:41] LABS: White Blood Cell Scan OK (OK)
--- NOTE | 2024-01-08 07:10 | RAD REPORT ---
EXAM DESCRIPTION: RAD - Abdomen 1 View (KUB) - 01/08/2024 6:59 am CLINICAL HISTORY: vomiting COMPARISON: Abdomen Pelvis Wo Contrast dated 01/05/2024 FINDINGS: Diffusely gaseous dilatation of the small bowel measuring up to 4.5 cm. No acute osseous a bnormality.Visualized lungs are unremarkable.No abnormal calcifications. Bladder stimulator. Surgical clips in right upper quadrant. IMPRESSION: New diffuse small bowel dilatation which probably reflects an ileus as the dilatation is generalized. Distal small bowel obstruction less likely.
[2024-01-08] MEDS: VANCOMYCIN ORAL SOLN 250 MG/5 ML OSYR PO SCH ×2 (08:55→11:40)
[2024-01-08] MEDS ORDERED: AMIODARONE HCL 450 MG in D5W 241 ML IV SCH (09:00)
--- NOTE | 2024-01-08 09:37 | P.PN ---
Subjective Date of Service: 01/08/24 Primary Care Provider: Dr. Almanza Chief Complaint: SEVERE C DIFF COLITIS, ARF, A FIB Subjective: Improving, Worsening (Patient's condition is worse today complaining of abdominal distention nausea vomiting some liquid stools) Review of Systems General: Weakness Gastrointestinal: Vomiting, Abdominal Pain, Distention Physical Examination - Vital Signs Temperature: 97.4 F Blood Pressure: 104/76 Pulse: 104 Respirations: 19 Pulse Ox (%): 96 - Physical Exam General: Alert, In no apparent distress, Oriented x2 Respiratory: Clear to auscultation bilaterally, Normal air movement Cardiovascular: No edema, Regular rate/rhythm Gastrointestinal: Normal bowel sounds, Distended, Tenderness (Cannulize mild tenderness) - Studies Microbiology Data (last 24 hrs): 01/05/24 06:12 Clean Catch Urine [place] Count - Final >100,000 CFU/ML. 01/05/24 06:12 Clean Catch Urine - Final MIXED HOWIE. Medications List Reviewed: Yes Assessment And Plan - Current Problems (Diagnosis) (1) C. difficile colitis Current Visit: Yes Status: Acute Plan: Patient's condition is slightly worse complaining of abdominal distention nausea vomiting changed to p.o. vancomycin and Flagyl count is normal creatinine has decreased to 2.49 pressure is stable condition satisfactory she is alert oriented responsive cooperative KUB shows an ileus
[2024-01-08] MEDS: AMIODARONE HCL 900 MG in Dextrose 5%-Water 482 ML IV SCH (10:00)
[2024-01-08] MEDS ORDERED: VANCOMYCIN HCL 125 MG CAPSULE PO SCH (12:00)
--- NOTE | 2024-01-08 12:40 | P.PN ---
Subjective Date of Service: 01/08/24 Primary Care Provider: Dr. Almanza Chief Complaint: SEVERE COLITIS, NAUSEA, VOMITING, ALTERED MENTAL STATUS, INVOLUNTARY MOVT Subjective: Improving NURSE CALLED TODAY ABOUT VOMITING TWICE. X RAY SHOWS ILEUS. SHE HAS LIP SMACKING MOVEMENTS THAT ARE NEW. NOT FOLLOWING COMMANDS WELL. Review of Systems 10-point ROS is otherwise unremarkable General: Weakness, Malaise Gastrointestinal: Vomiting Physical Examination - Vital Signs Temperature: 97.4 F Blood Pressure: 154/93 Pulse: 100 Respirations: 20 Pulse Ox (%): 96 - Physical Exam General: Oriented x2, Mild distress, Obese (DRY MM) HEENT: Atraumatic, PERRLA, EOMI Neck: Supple, JVD not distended Respiratory: Clear to auscultation bilaterally, Normal air movement Cardiovascular: Regular rate/rhythm (TACHYCARDIA), Normal S1 S2 Gastrointestinal: Hypoactive, No rebound, Distended, Tenderness Musculoskeletal: No tenderness Integumentary: No rashes Neurological: Normal speech, Normal tone, Normal affect Lymphatics: No axilla or inguinal lymphadenopathy - Studies Microbiology Data (last 24 hrs): 01/05/24 06:12 Clean Catch Urine [place] Count - Final >100,000 CFU/ML. 01/05/24 06:12 Clean Catch Urine - Final MIXED HOWIE. Medications List Reviewed: Yes Assessment And Plan - Current Problems (Diagnosis) (1) Acute renal failure Current Visit: Yes Status: Acute Plan: THIS IS POSSIBLY REVERSIBLE IF SHE HAS ONLY PRERENAL COMPONENT ATN IS ALSO POSSIBLE FROM HYPOVOLEMIC SHOCK. CREAT IS DOWN FROM 8 TO 2.4. K IS GOOD. (2) C. difficile colitis Current Visit: Yes Status: Acute Plan: SEVERE CONDITION WILL START TRIPLE THERAPY ABOVE. MAY CHANGE TO ORAL WHEN MORE STABLE. SHE DID NOT DO WELL ON DIFFICID SHE IS BACK ON VANCOMYCIN ORALLY AND FLAGYL IV I TALKED TO IN DETAIL. ABSORPTION OF VANCOMYCIN BY MOUTH WILL BE POOR AND SLOW SHE HAS ILEUS. I AM HOPING SHE IMPROVES. SHE IS STABLE WITH BP NORMAL OFF LEVOPHED NOW. I DISCUSSED FECAL TRANSPLANTATION THAT IS NOT AVAILABLE AT THIS HOSPITAL I THINK WE NEED TO GIVE HER FEW MORE DAYS FOR VANCOMYCIN ORAL AND IV FLAGYL TO SEE IF IT WORKS UNDERSTANDS. (3) Septic shock Current Visit: Yes Status: Acute Plan: ABOVE IV FLUIDS LEVOPHED DAILY LAB. PICC LINE. STILL ON LEVOPHED IMPROVING. (4) A-fib Current Visit: Yes Status: Acute Plan: AMIODARONE CAN GIVE RISE TO INV. NEUROLOGICAL MOVEMENTS. WILL STOP IT AND CHANGE TO IV METOPROLOL. PLATELETES ARE LOWER. WE STOPPED HEPARIN A FEW DAYS AGO. WE DO HAVE ARIXTRA AND WE WILL START THAT FOR PREVENTIVE DOSE. SCD BILAT. (5) Hypomagnesemia Current Visit: Yes Status: Acute Plan: REPLACE AND FU (6) Protein calorie malnutrition Current Visit: Yes Status: Acute Plan: PPN FOR SHORT DURATION LOW ALB FROM ACUTE ILLNESS. (7) Abnormal urinalysis Current Visit: Yes Status: Acute Plan: NO NEED TO TREAT FOR NOW. SHE HAS NOSS TREATING THIS WILL FEED C DIFF THAT IS A MAJOR PROBLEM NOW. CANCEL DR. HUIZAR CONSULT. CONTINUE C DIFF THERAPY. (8) Tardive dyskinesia Current Visit: Yes Status: Acute Plan: THIS CAN BE AMIODARONE SE STOP IT AND SEE HOW IT GOES CHANGE TO METOPROLOL IV SHE IS NOT IN A FIB NOW. HOPEFULLY WE WILL NOT NEED AMIODARONE FOR NOW.
[2024-01-08] MEDS: METOPROLOL TARTRATE 5 MG/5 ML INJ IV SCH ×2 (13:07→19:30)
[2024-01-08] MEDS: FONDAPARINUX SOD 2.5 MG/0.5 ML SQ SCH (13:09)
[2024-01-08] MEDS: FAMOTIDINE 20 MG/2 ML VIAL IV SCH (13:12)
[2024-01-08] MEDS: D5W 1,000 ML IV SCH (15:00)
--- NOTE | 2024-01-08 19:33 | PN ---
Date of Progress Note: 01/08/2024 Subjective: The patient was seen and examined at bedside. She has been confused. Now she has an il eus and she is n.p.o. Physical Examination: Vital Signs: Have been reviewed and are stable. General: She appears in no acute distress. Lungs: Clear to auscultation. Abdomen: Soft and nontender with no bowel sounds appreciated. Extremities: Showed no evidence of edema. Laboratory Data: At this time are showing creatinine improving to 2.49, BUN of 61, sodium of 145, po tassium 3.7, chloride of 112, and bicarb of 26. CBC showing a platelet count of 66, and other electr olytes are stable. Current Medications: Have been reviewed. Impression: 1.Acute renal failure secondary to ATN. Currently with improving renal function. Patient is on deedee f NS, which I will go ahead and stop and change it to D5 water to prevent further hypernatremia at th is time. 2.C diff colitis with ileus. The patient is on p.o. vancomycin. 3.Thrombocytopenia, has been started on fondaparinux. 4.Ileus. Conservative management and gastric decompression and monitor closely. Plan: Overall, patient is clinically stable, however, she has worsening ileus with thrombocytopenia. Continue to monitor closely and follow up on labs. Avoid further hypotension, nephrotoxins, and will monitor. VV/MODL Voice ID: [id number] Report ID: [id number]
[2024-01-09 05:17] LABS: Hematocrit 35.3 % (36.0-45.0); Hemoglobin 11.7 g/dL (12.0-15.0); RBC Red Blood Cell Count 3.94 M/uL (3.86-4.86)
[2024-01-09 05:18] LABS: MCH 29.6 pg (27.0-35.0); MCHC 33.1 g/dL (32.0-36.0); MCV 89.5 fL (80-100); Platelets 83 thou/uL (152-406); Red Cell Distribution Width 13.7 % (12.1-15.2)
[2024-01-09 05:32] LABS: Anion Gap 7.7 mEq/L (5.0-15.0); Potassium 3.7 mEq/L (3.5-5.1)
[2024-01-09] MEDS ORDERED: FAMOTIDINE 20 MG/2 ML VIAL IV ONE (08:18)
[2024-01-09] MEDS ORDERED: METRONIDAZOLE 500mg IVPB 500 MG/100 ML BAG IV ONE ×2 (08:19→17:09)
--- NOTE | 2024-01-09 13:22 | P.PN ---
Subjective Date of Service: 01/09/24 Primary Care Provider: Dr. Almanza Chief Complaint: Patient is complaining of nausea vomiting Condition unchanged said complaining of abdominal distention and vomiting no fever or chills is able to tolerate some liquids Review of Systems General: Weakness Gastrointestinal: Nausea, Vomiting, Abdominal Pain Musculoskeletal: Atrophy Physical Examination - Vital Signs Temperature: 97.1 F Blood Pressure: 155/93 Pulse: 80 Respirations: 22 Pulse Ox (%): 98 - Physical Exam General: Alert, Oriented x3 Neck: Supple Respiratory: Clear to auscultation bilaterally Cardiovascular: No edema, Normal S1 S2 Gastrointestinal: Hypoactive, Distended - Studies Medications List Reviewed: Yes Assessment And Plan - Current Problems (Diagnosis) (1) C. difficile colitis Current Visit: Yes Status: Acute Plan: Patient's condition is stable she's off the vasopressor's said complaining of some nausea and vomiting still has some abdominal distention renal function has improved significantly patient will be getting rectal vancomycin were trying advancer diet if you can tolerate an changeover to PO meds as wellPatient's cultures are negative white count is normal
[2024-01-09] MEDS ORDERED: D5W 1,000 ML IV ONE (17:09)
[2024-01-09] MEDS ORDERED: METOPROLOL TARTRATE 5 MG/5 ML INJ IV ONE (17:09)
[2024-01-09 18:28] LABS: Anion Gap 8.4 mEq/L (5.0-15.0); Potassium 3.4 mEq/L (3.5-5.1)
[2024-01-09] MEDS: ENSURE CLEAR 200 ML CAN PO SCH (20:32)
[2024-01-09] MEDS: Banana Flakes/T-Galactooligos 1 Dose Packet PO SCH (21:00)
--- NOTE | 2024-01-09 21:59 | P.PN ---
Date of Service: 01/09/24 Vital Signs Temp Pulse Resp BP Pulse Ox 98 F 88 23 H 153/90 H 96 01/09/24 20:00 01/09/24 21:00 01/09/24 21:00 01/09/24 21:00 01/09/24 21:00 Medications Enteral Nutritional Formula (Ensure Clear 200 Ml Can) 237 ml PO BID [facility] Last Admin: 01/09/24 20:37 Dose: Not Given Famotidine (Famotidine 20 Mg/2 Ml Vial) 10 mg IV DAILY [facility]; Protocol Last Admin: 01/09/24 08:45 Dose: 10 mg Fondaparinux (Fondaparinux Sod 2.5 Mg/0.5 Ml) 2.5 mg SQ DAILY [facility] Stop: 02/07/24 12:29 Last Admin: 01/09/24 08:45 Dose: 2.5 mg Metronidazole/Sodium Chloride (Flagyl 500mg/100 Ml Iv Premix) 500 mg in 100 mls @ 200 mls/hr IV Q8HR [facility]; Protocol Last Admin: 01/09/24 17:12 Dose: 100 mls Multivitamins 10 ml/ Amino Acids/Electrolytes/ Fat Emulsion Intravenous 2,260 mls @ 90 mls/hr IV MoWeFr@0900 [facility] Amino Acids/Electrolytes (Clinimix E 5%-20% Solution) 2,000 mls @ 90 mls/hr IV SuTuThSa@0900 [facility] Potassium Chloride (Kcl 20 Meq/100 Ml Ivpb (Premix)) 20 meq in 100 mls @ 50 mls/hr IV 1X [facility]; Protocol Stop: 01/09/24 23:59 Magnesium Chloride (Magnesium Chloride 64 Mg Tab) 64 mg PO BEDTIME [facility] Last Admin: 01/09/24 20:31 Dose: 64 mg Metoprolol Tartrate (Metoprolol Tartrate 5 Mg/5 Ml Inj) 5 mg IV Q6HR [facility] Last Admin: 01/09/24 17:12 Dose: 5 mg Vancomycin HCl (Vancomycin Oral Soln 250 Mg/5 Ml [place]) 500 mg PO Q6HR [facility]; Protocol Last Admin: 01/09/24 17:12 Dose: 500 mg Microbiology Results 01/05/24 06:12 Clean Catch Urine [place] Count - Final >100,000 CFU/ML. 01/05/24 06:12 Clean Catch Urine - Final MIXED HOWIE. 01/05/24 08:20 Blood - Blood Aerobic Blood Culture - Preliminary No growth in 24 hours. 01/05/24 08:20 Blood - Blood Anaerobic Blood Culture - Preliminary No growth in 24 hours. 01/05/24 07:19 Blood - Blood Aerobic Blood Culture - Preliminary No growth in 24 hours. 01/05/24 07:19 Blood - Blood Anaerobic Blood Culture - Preliminary No growth in 24 hours. Assessment/ Plan: Nephrology No dyspnea No chest pain No acute events overnight Limited IH/ ROS due to confusion Vitals, medications, blood work and imaging reviewed in the chart General: Oriented x3, Cooperative HEENT: Atraumatic Neck: Supple Respiratory: Clear to auscultation bilaterally Cardiovascular: Hip edema trace, Irregular heart rate/rhythm Gastrointestinal: Non-distended, Tenderness, Guarding Musculoskeletal: No clubbing, No contractures Integumentary: No rashes, No cyanosis Neurological: Normal speech Laboratory Data (last 24 hrs) 01/05/24 01/05/24 05:39 05:39 WBC 17.30 H Hgb 13.5 Hct 41.7 Plt Count 216 Sodium 133 L Potassium 4.5 BUN 81 H Creatinine 8.09 H Glucose 90 Total Bilirubin 3.9 H AST 65 H ALT 29 Alkaline Phosphatase 55 Lipase 11 L Imagings Data: EXAM DESCRIPTION: CT - Abdomen Pelvis Wo Contrast - 01/05/2024 6:53 am CLINICAL HISTORY: Abdominal pain. ABD PAIN COMPARISON: <Comparisons> TECHNIQUE: CT imaging of the abdomen and pelvis was performed without contrast. Solid organ, bowel and vascular assessment is limited due to lack of IV and oral contrast. All CT scans are performed using dose optimization technique as appropriate and may include automated exposure control or mA/KV adjustment according to patient size. FINDINGS: The lower lung shankar are clear. The liver, spleen, pancreas, adrenal glands and kidneys are within normal limits for a limited non-contrast examination.Cholecystectomy. No bowel obstruction, free air, free fluid or abscess. The colon appears mildly fluid distended throughout its course. Wall thickening is present throughout the colon is mild. No evidence pneumatosis coli. The appendix is normal. Moderate fat containing umbilical. Moderate lower lumbar degenerative changes. IMPRESSION: [id number] pancolitis. A limited non-contrast examination was performed as detailed. Conclusions/Impression: Stage III PROSPER in the setting of hypotension, hypovolemia, aleve and losartan may be prerenal azotemia complicated by ATN (Toradol given in the ER) Proteinuria -No NSAIDs Hypernatremia/ Hyponatremia -Hold IVF and reevaluate in the AM Hypokalemia -Replete as ordered Hypomagnesemia -Continue oral mag Hypovolemic shock Distributive shock in the setting of sepsis? -IVF as ordered Hypoalbuminemia -Agree with TPN Anemia in chronic illness -Monitor H&H Sepsis C.diff PanColitis Acute on Chronic Cystitis -Continue Abx Hospitalist & Pulmonary notes reviewed
--- NOTE | 2024-01-09 22:05 | P.PN ---
Subjective Date of Service: 01/09/24 Primary Care Provider: Dr. Almanza Chief Complaint: BETTER ORIENTATION, NAUSEA, VOMITING OFF AND ON. Subjective: Improving NURSE CALLED TODAY ABOUT VOMITING TWICE. X RAY SHOWS ILEUS. SHE HAS LIP SMACKING MOVEMENTS THAT ARE NEW. NOT FOLLOWING COMMANDS WELL. SHE IS BETTER BUT STILL HAS VOMITING OFF AND ON AND HAS DISTENDED ABDOMEN WITH NO BS. Review of Systems 10-point ROS is otherwise unremarkable General: Weakness, Malaise Physical Examination - Vital Signs Temperature: 98 F Blood Pressure: 153/90 Pulse: 88 Respirations: 23 Pulse Ox (%): 96 - Physical Exam General: Oriented x2, Moderate distress, Obese HEENT: Atraumatic, PERRLA, EOMI Neck: Supple, JVD not distended Respiratory: Clear to auscultation bilaterally, Normal air movement Cardiovascular: Regular rate/rhythm, Normal S1 S2 Gastrointestinal: Distended (BETTER THAN YEST.), Tenderness Musculoskeletal: No tenderness Integumentary: No rashes Neurological: Other (GEN WEAK, NO FOCAL DEFICITS) Lymphatics: No axilla or inguinal lymphadenopathy - Studies Medications List Reviewed: Yes Assessment And Plan - Current Problems (Diagnosis) (1) Acute renal failure Current Visit: Yes Status: Acute Plan: THIS IS POSSIBLY REVERSIBLE IF SHE HAS ONLY PRERENAL COMPONENT ATN IS ALSO POSSIBLE FROM HYPOVOLEMIC SHOCK. CREAT IS DOWN FROM 8 TO 2.4. K IS GOOD. IMPROVES DAILY. (2) C. difficile colitis Current Visit: Yes Status: Acute Plan: SEVERE CONDITION WILL START TRIPLE THERAPY ABOVE. MAY CHANGE TO ORAL WHEN MORE STABLE. SHE DID NOT DO WELL ON DIFFICID SHE IS BACK ON VANCOMYCIN ORALLY AND FLAGYL IV I TALKED TO IN DETAIL. ABSORPTION OF VANCOMYCIN BY MOUTH WILL BE POOR AND SLOW SHE HAS ILEUS. I AM HOPING SHE IMPROVES. SHE IS STABLE WITH BP NORMAL OFF LEVOPHED NOW. I DISCUSSED FECAL TRANSPLANTATION THAT IS NOT AVAILABLE AT THIS HOSPITAL I THINK WE NEED TO GIVE HER FEW MORE DAYS FOR VANCOMYCIN ORAL AND IV FLAGYL TO SEE IF IT WORKS UNDERSTANDS. STILL HAS ILEUS TRY GARZA IN RECTUM TO ADMINISTER VANCOMYCIN RECTALLY. HOLD FOR 2 HOURS AND REMOVE GARZA. Q8H THIS IS DONE SHE IS NOT ABLE TO RETAIN VANCOMYCIN ENEMA. I HAD NURSE TAKE PERMISSION FROM THE . CONT IV FLAGYL AND ORAL VANCO ALSO IF SHE WOULD RETAIN ANY. UNDERSTANDS GUARDED PROGNOSIS. (3) Septic shock Current Visit: Yes Status: Acute Plan: ABOVE IV FLUIDS LEVOPHED DAILY LAB. PICC LINE. STILL ON LEVOPHED IMPROVING. (4) A-fib Current Visit: Yes Status: Acute Plan: AMIODARONE CAN GIVE RISE TO INV. NEUROLOGICAL MOVEMENTS. WILL STOP IT AND CHANGE TO IV METOPROLOL. PLATELETES ARE LOWER. WE STOPPED HEPARIN A FEW DAYS AGO. WE DO HAVE ARIXTRA AND WE WILL START THAT FOR PREVENTIVE DOSE. SCD BILAT. (5) Hypomagnesemia Current Visit: Yes Status: Acute Plan: REPLACE AND FU (6) Protein calorie malnutrition Current Visit: Yes Status: Acute Plan: PPN FOR SHORT DURATION LOW ALB FROM ACUTE ILLNESS. (7) Abnormal urinalysis Current Visit: Yes Status: Acute Plan: NO NEED TO TREAT FOR NOW. SHE HAS NOSS TREATING THIS WILL FEED C DIFF THAT IS A MAJOR PROBLEM NOW. CANCEL DR. HUIZAR CONSULT. CONTINUE C DIFF THERAPY. (8) Tardive dyskinesia Current Visit: Yes Status: Acute Plan: THIS CAN BE AMIODARONE SE STOP IT AND SEE HOW IT GOES CHANGE TO METOPROLOL IV SHE IS NOT IN A FIB NOW. HOPEFULLY WE WILL NOT NEED AMIODARONE FOR NOW.
[2024-01-09] MEDS ORDERED: KCL 20 MEQ/100 mL IVPB 100 ML IV ONE (22:08)
[2024-01-09] MEDS: KCL 20 MEQ/100 mL IVPB 20 MEQ/100 ML BAG IV SCH (22:10)
[2024-01-10 05:13] LABS: Hematocrit 36.1 % (36.0-45.0); Hemoglobin 12.1 g/dL (12.0-15.0); MCH 29.8 pg (27.0-35.0); MCHC 33.5 g/dL (32.0-36.0); MCV 88.9 fL (80-100); MPV 8.9 fL (7.6-11.3); Platelets 94 thou/uL (152-406); RBC Red Blood Cell Count 4.06 M/uL (3.86-4.86)
[2024-01-10 05:21] LABS: Albumin 2.1 g/dL (3.4-5.0); Albumin/Globulin Ratio 0.5 (1.1-1.8); Anion Gap 8.2 mEq/L (5.0-15.0); Bilirubin Direct 1.8 mg/dL (0-0.2); Bilirubin Indirect, Calculated 0.4 mg/dL (0.2-0.8); Bilirubin Total 2.2 mg/dL (0.2-1.0); Globulin 4.1 g/dL (2.3-3.5); Magnesium 2.2 mg/dL (1.6-2.4); Phosphorus 2.9 mg/dL (2.5-4.9); Potassium 4.2 mEq/L (3.5-5.1); Protein, Total 6.2 g/dL (6.4-8.2); Uric Acid 9.3 mg/dL (2.6-6.0)
[2024-01-10] MEDS: AA 5%/D20W/ELECTROLYTES-TPN 2,000 ML, Lipids 20% 250 ML with MULTIVITAMINS INJ 10 ML IV SCH (09:00)
--- NOTE | 2024-01-10 16:57 | P.PN ---
Subjective Date of Service: 01/10/24 Primary Care Provider: Dr. Almanza Chief Complaint: BETTER ORIENTATION, NAUSEA, VOMITING OFF AND ON. Subjective: Improving NURSE CALLED TODAY ABOUT VOMITING TWICE. X RAY SHOWS ILEUS. SHE HAS LIP SMACKING MOVEMENTS THAT ARE NEW. NOT FOLLOWING COMMANDS WELL. SHE IS BETTER BUT STILL HAS VOMITING OFF AND ON AND HAS DISTENDED ABDOMEN WITH NO BS. SHE LOOKS BETTER. HAD CONFUSION AT NIGHT AND HAD TO BE RESTRAINED. HAD TWO BM LAST NIGHT. Review of Systems is unable to be obtained General: Weakness Physical Examination - Vital Signs Temperature: 97.4 F Blood Pressure: 156/86 Pulse: 87 Respirations: 20 Pulse Ox (%): 99 - Physical Exam General: Oriented x2, Mild distress, Obese HEENT: Atraumatic, PERRLA, EOMI Neck: Supple, JVD not distended Respiratory: Clear to auscultation bilaterally, Normal air movement Cardiovascular: Regular rate/rhythm, Normal S1 S2 Gastrointestinal: Tenderness (DIFFUSE MILD.) Musculoskeletal: No tenderness Integumentary: No rashes Neurological: Normal speech, Normal tone, Normal affect Lymphatics: No axilla or inguinal lymphadenopathy - Studies Microbiology Data (last 24 hrs): 01/05/24 08:20 Blood - Blood Aerobic Blood Culture - Final No growth in 5 days. 01/05/24 08:20 Blood - Blood Anaerobic Blood Culture - Final No growth in 5 days. 01/05/24 07:19 Blood - Blood Aerobic Blood Culture - Final No growth in 5 days. 01/05/24 07:19 Blood - Blood Anaerobic Blood Culture - Final No growth in 5 days. Medications List Reviewed: Yes Assessment And Plan - Current Problems (Diagnosis) (1) Acute renal failure Current Visit: Yes Status: Acute Plan: THIS IS POSSIBLY REVERSIBLE IF SHE HAS ONLY PRERENAL COMPONENT ATN IS ALSO POSSIBLE FROM HYPOVOLEMIC SHOCK. CREAT IS DOWN FROM 8 TO 2.4. K IS GOOD. IMPROVES DAILY. CREAT DOWN TO 1.4. (2) C. difficile colitis Current Visit: Yes Status: Acute Plan: SEVERE CONDITION WILL START TRIPLE THERAPY ABOVE. MAY CHANGE TO ORAL WHEN MORE STABLE. SHE DID NOT DO WELL ON DIFFICID SHE IS BACK ON VANCOMYCIN ORALLY AND FLAGYL IV I TALKED TO IN DETAIL. ABSORPTION OF VANCOMYCIN BY MOUTH WILL BE POOR AND SLOW SHE HAS ILEUS. I AM HOPING SHE IMPROVES. SHE IS STABLE WITH BP NORMAL OFF LEVOPHED NOW. I DISCUSSED FECAL TRANSPLANTATION THAT IS NOT AVAILABLE AT THIS HOSPITAL I THINK WE NEED TO GIVE HER FEW MORE DAYS FOR VANCOMYCIN ORAL AND IV FLAGYL TO SEE IF IT WORKS UNDERSTANDS. STILL HAS ILEUS TRY GARZA IN RECTUM TO ADMINISTER VANCOMYCIN RECTALLY. HOLD FOR 2 HOURS AND REMOVE GARAZ. Q8H THIS IS DONE SHE IS NOT ABLE TO RETAIN VANCOMYCIN ENEMA. I HAD NURSE TAKE PERMISSION FROM THE . CONT IV FLAGYL AND ORAL VANCO ALSO IF SHE WOULD RETAIN ANY. UNDERSTANDS GUARDED PROGNOSIS. CONTINUE TRIPLE THERAPY IMPROVED. GARZA INDUCED RECTAL INSTILLATION IS WORKING SO FAR. (3) Septic shock Current Visit: Yes Status: Acute Plan: ABOVE IV FLUIDS LEVOPHED DAILY LAB. PICC LINE. STILL ON LEVOPHED IMPROVING. (4) A-fib Current Visit: Yes Status: Acute Plan: AMIODARONE CAN GIVE RISE TO INV. NEUROLOGICAL MOVEMENTS. WILL STOP IT AND CHANGE TO IV METOPROLOL. PLATELETES ARE LOWER. WE STOPPED HEPARIN A FEW DAYS AGO. WE DO HAVE ARIXTRA AND WE WILL START THAT FOR PREVENTIVE DOSE. SCD BILAT. STABLE. NSR NOW. (5) Hypomagnesemia Current Visit: Yes Status: Acute Plan: REPLACE AND FU (6) Protein calorie malnutrition Current Visit: Yes Status: Acute Plan: PPN FOR SHORT DURATION LOW ALB FROM ACUTE ILLNESS. (7) Abnormal urinalysis Current Visit: Yes Status: Acute Plan: NO NEED TO TREAT FOR NOW. SHE HAS NOSS TREATING THIS WILL FEED C DIFF THAT IS A MAJOR PROBLEM NOW. CANCEL DR. HUIZAR CONSULT. CONTINUE C DIFF THERAPY. (8) Tardive dyskinesia Current Visit: Yes Status: Acute Plan: THIS CAN BE AMIODARONE SE STOP IT AND SEE HOW IT GOES CHANGE TO METOPROLOL IV SHE IS NOT IN A FIB NOW. HOPEFULLY WE WILL NOT NEED AMIODARONE FOR NOW. IMPROVED OFF AMIODARONE NOW.
--- NOTE | 2024-01-10 19:27 | PN ---
Date of Progress Note: 01/10/2024 Subjective: Seen by bedside. Doing clinically well. Denies any chest pain, shortness of breath, or thopnea, or cough. No nausea, vomiting, dysuria, polyuria, urinary urgency. Physical Examination: Vital Signs: Reviewed. Head and Neck: Pupils are equal, reactive to light. Intact eye movements. No JVD. No cervical lym phadenopathy. Neck: Supple. Thyroid is not enlarged. Lungs: Clear to auscultation bilaterally. No rhonchi, rales, or crackles. No accessory muscle use. Heart: Regular. No extra sounds. Abdomen: Soft, nontender. Bowel sounds positive. No organomegaly. No masses or hernia. No rigidi ty or rebound. Extremities: No edema, clubbing, or cyanosis. Intact pulses. Skin: No rashes. Neurologic: Alert, awake, oriented x3. No acute focal deficits appreciated. Investigations: BUN is 48, creatinine 1.25. Assessment/recommendation: 1.Atrial fibrillation with rapid ventricular response due to the major fluid shift due to the C diff icile colitis. Recommend oral metoprolol if she can tolerate and titrate up to keep the patient's ra te controlled and she will need anticoagulation. Also recommend to start Eliquis 5 mg twice a day if her C. difficile colitis condition is stabilized. 2.Acute renal failure due to aggressive diarrhea from C. difficile colitis and this is resolving. 3.C. difficile colitis, on proper antibiotics. SR/MODL Voice ID: [id number] Report ID: [id number]
--- NOTE | 2024-01-10 20:16 | P.PN ---
Date of Service: 01/10/24 Vital Signs Temp Pulse Resp BP Pulse Ox 97.4 F 86 26 H 160/56 H 99 01/10/24 16:57 01/10/24 19:00 01/10/24 19:00 01/10/24 19:00 01/10/24 19:00 Medications Enteral Nutritional Formula (Ensure Clear 200 Ml Can) 237 ml PO BID [facility] Last Admin: 01/10/24 09:00 Dose: 237 ml Famotidine (Famotidine 20 Mg/2 Ml Vial) 10 mg IV DAILY [facility]; Protocol Last Admin: 01/10/24 08:57 Dose: 10 mg Fondaparinux (Fondaparinux Sod 2.5 Mg/0.5 Ml) 2.5 mg SQ DAILY [facility] Stop: 02/07/24 12:29 Last Admin: 01/10/24 08:56 Dose: 2.5 mg Metronidazole/Sodium Chloride (Flagyl 500mg/100 Ml Iv Premix) 500 mg in 100 mls @ 200 mls/hr IV Q8HR [facility]; Protocol Stop: 01/14/24 23:59 Last Admin: 01/10/24 17:52 Dose: 100 mls Multivitamins 10 ml/ Amino Acids/Electrolytes/ Fat Emulsion Intravenous 2,260 mls @ 90 mls/hr IV MoWeFr@0900 [facility] Last Admin: 01/10/24 09:00 Dose: 2,260 mls Amino Acids/Electrolytes (Clinimix E 5%-20% Solution) 2,000 mls @ 90 mls/hr IV SuTuThSa@0900 [facility] Magnesium Chloride (Magnesium Chloride 64 Mg Tab) 64 mg PO BEDTIME [facility] Last Admin: 01/09/24 20:31 Dose: 64 mg Metoprolol Tartrate (Metoprolol Tartrate 5 Mg/5 Ml Inj) 5 mg IV Q6HR [facility] Last Admin: 01/10/24 17:51 Dose: 5 mg Vancomycin HCl (Vancomycin Oral Soln 250 Mg/5 Ml Osyr) 500 mg PO Q6HR [facility]; Protocol Stop: 01/14/24 23:59 Last Admin: 01/10/24 17:51 Dose: 500 mg Microbiology Results 01/05/24 08:20 Blood - Blood Aerobic Blood Culture - Final No growth in 5 days. 01/05/24 08:20 Blood - Blood Anaerobic Blood Culture - Final No growth in 5 days. 01/05/24 07:19 Blood - Blood Aerobic Blood Culture - Final No growth in 5 days. 01/05/24 07:19 Blood - Blood Anaerobic Blood Culture - Final No growth in 5 days. 01/05/24 06:12 Clean Catch Urine [place] Count - Final >100,000 CFU/ML. 01/05/24 06:12 Clean Catch Urine - Final MIXED HOWIE. Assessment/ Plan: Nephrology No dyspnea No chest pain Feeling better today No acute events overnight Vitals, medications, blood work and imaging reviewed in the chart General: Oriented, Cooperative HEENT: Atraumatic Neck: Supple Respiratory: Clear to auscultation bilaterally Cardiovascular: Hip edema trace, Irregular heart rate/rhythm Gastrointestinal: Non-distended, Tenderness, Guarding Musculoskeletal: No clubbing, No contractures Integumentary: No rashes, No cyanosis Neurological: Normal speech Laboratory Data (last 24 hrs) 01/05/24 01/05/24 05:39 05:39 WBC 17.30 H Hgb 13.5 Hct 41.7 Plt Count 216 Sodium 133 L Potassium 4.5 BUN 81 H Creatinine 8.09 H Glucose 90 Total Bilirubin 3.9 H AST 65 H ALT 29 Alkaline Phosphatase 55 Lipase 11 L Imagings Data: EXAM DESCRIPTION: CT - Abdomen Pelvis Wo Contrast - 01/05/2024 6:53 am CLINICAL HISTORY: Abdominal pain. ABD PAIN COMPARISON: <Comparisons> TECHNIQUE: CT imaging of the abdomen and pelvis was performed without contrast. Solid organ, bowel and vascular assessment is limited due to lack of IV and oral contrast. All CT scans are performed using dose optimization technique as appropriate and may include automated exposure control or mA/KV adjustment according to patient size. FINDINGS: The lower lung shankar are clear. The liver, spleen, pancreas, adrenal glands and kidneys are within normal limits for a limited non-contrast examination.Cholecystectomy. No bowel obstruction, free air, free fluid or abscess. The colon appears mildly fluid distended throughout its course. Wall thickening is present throughout the colon is mild. No evidence pneumatosis coli. The appendix is normal. Moderate fat containing umbilical. Moderate lower lumbar degenerative changes. IMPRESSION: [id number] pancolitis. A limited non-contrast examination was performed as detailed. Conclusions/Impression: Stage III PROSPER in the setting of hypotension, hypovolemia, aleve and losartan may be prerenal azotemia complicated by ATN Proteinuria -No NSAIDs Hypernatremia/ Hyponatremia -Continue TPN Hypokalemia -Replete prn Hypomagnesemia -Continue oral mag HTN Afib -Continue Metoprolol Hypoalbuminemia -Continue TPN Anemia in chronic illness -Monitor H&H Sepsis C.diff PanColitis Acute on Chronic Cystitis -Continue Abx Hospitalist & Pulmonary notes reviewed
[2024-01-10] MEDS ORDERED: METOPROLOL TARTRATE 5 MG/5 ML INJ IV ONE (22:46)
[2024-01-11 05:27] LABS: Albumin 1.9 g/dL (3.4-5.0); Albumin/Globulin Ratio 0.5 (1.1-1.8); Bilirubin Direct 1.1 mg/dL (0-0.2); Bilirubin Indirect, Calculated 0.4 mg/dL (0.2-0.8); Bilirubin Total 1.5 mg/dL (0.2-1.0); Globulin 3.7 g/dL (2.3-3.5); Protein, Total 5.6 g/dL (6.4-8.2)
[2024-01-11] MEDS ORDERED: FAMOTIDINE 20 MG/2 ML VIAL IV ONE (08:04)
[2024-01-11] MEDS ORDERED: METRONIDAZOLE 500mg IVPB 500 MG/100 ML BAG IV ONE ×2 (08:04→16:13)
[2024-01-11] MEDS: FONDAPARINUX SOD 2.5 MG/0.5 ML SQ SCH (08:22)
[2024-01-11] MEDS ORDERED: METOPROLOL TARTRATE 5 MG/5 ML INJ IV ONE ×2 (12:33→17:08)
--- NOTE | 2024-01-11 18:05 | P.PN ---
Subjective Date of Service: 01/11/24 Primary Care Provider: Dr. Almanza Chief Complaint: BETTER ORIENTATION, NAUSEA, VOMITING OFF AND ON. Subjective: Improving SHE IS DOING GOOD ABLE TO RETAIN RECTAL VANCOMYCIN WITH USE OF GARZA CATHETER. Review of Systems 10-point ROS is otherwise unremarkable General: Weakness Physical Examination - Vital Signs Temperature: 98.2 F Blood Pressure: 138/79 Pulse: 98 Respirations: 20 Pulse Ox (%): 98 - Physical Exam General: Oriented x2, Mild distress, Obese HEENT: Atraumatic, PERRLA, EOMI Neck: Supple, JVD not distended Respiratory: Clear to auscultation bilaterally, Normal air movement Cardiovascular: Regular rate/rhythm, Normal S1 S2 Gastrointestinal: Normal bowel sounds, No tenderness Musculoskeletal: No tenderness Integumentary: No rashes Neurological: Normal speech, Normal tone, Normal affect Lymphatics: No axilla or inguinal lymphadenopathy - Studies Medications List Reviewed: Yes Assessment And Plan - Current Problems (Diagnosis) (1) Acute renal failure Current Visit: Yes Status: Acute Plan: THIS IS POSSIBLY REVERSIBLE IF SHE HAS ONLY PRERENAL COMPONENT ATN IS ALSO POSSIBLE FROM HYPOVOLEMIC SHOCK. CREAT IS DOWN FROM 8 TO 2.4. K IS GOOD. IMPROVES DAILY. CREAT DOWN TO 1.4. (2) C. difficile colitis Current Visit: Yes Status: Acute Plan: SEVERE CONDITION CONTINUE TRIPLE THERAPY IMPROVED. GARZA INDUCED RECTAL INSTILLATION IS WORKING SO FAR. DOING LOT BETTER START PT DOWNGRADE TO REG FLOOR OVERFLOW IN ICU. (3) Septic shock Current Visit: Yes Status: Acute Plan: ABOVE IV FLUIDS LEVOPHED DAILY LAB. PICC LINE. STILL ON LEVOPHED IMPROVING. (4) A-fib Current Visit: Yes Status: Acute Plan: AMIODARONE CAN GIVE RISE TO INV. NEUROLOGICAL MOVEMENTS. WILL STOP IT AND CHANGE TO IV METOPROLOL. PLATELETES ARE LOWER. WE STOPPED HEPARIN A FEW DAYS AGO. WE DO HAVE ARIXTRA AND WE WILL START THAT FOR PREVENTIVE DOSE. SCD BILAT. STABLE. NSR NOW. (5) Hypomagnesemia Current Visit: Yes Status: Acute Plan: REPLACE AND FU (6) Protein calorie malnutrition Current Visit: Yes Status: Acute Plan: PPN FOR SHORT DURATION LOW ALB FROM ACUTE ILLNESS. (7) Abnormal urinalysis Current Visit: Yes Status: Acute Plan: NO NEED TO TREAT FOR NOW. SHE HAS NOSS TREATING THIS WILL FEED C DIFF THAT IS A MAJOR PROBLEM NOW. CANCEL DR. HUIZAR CONSULT. CONTINUE C DIFF THERAPY. (8) Tardive dyskinesia Current Visit: Yes Status: Acute Plan: THIS CAN BE AMIODARONE SE STOP IT AND SEE HOW IT GOES CHANGE TO METOPROLOL IV SHE IS NOT IN A FIB NOW. HOPEFULLY WE WILL NOT NEED AMIODARONE FOR NOW. IMPROVED OFF AMIODARONE NOW.
--- NOTE | 2024-01-11 21:05 | P.PN ---
Date of Service: 01/11/24 Vital Signs Temp Pulse Resp BP Pulse Ox 96.6 F L 88 23 H 153/95 H 97 01/11/24 20:00 01/11/24 20:00 01/11/24 20:00 01/11/24 20:00 01/11/24 20:00 Medications Enteral Nutritional Formula (Ensure Clear 200 Ml Can) 237 ml PO BID [facility] Last Admin: 01/11/24 20:31 Dose: 237 ml Famotidine (Famotidine 20 Mg/2 Ml Vial) 10 mg IV DAILY [facility]; Protocol Last Admin: 01/11/24 08:25 Dose: 10 mg Fondaparinux (Fondaparinux Sod 2.5 Mg/0.5 Ml) 2.5 mg SQ DAILY [facility] Stop: 02/10/24 09:01 Last Admin: 01/11/24 08:22 Dose: 2.5 mg Metronidazole/Sodium Chloride (Flagyl 500mg/100 Ml Iv Premix) 500 mg in 100 mls @ 200 mls/hr IV Q8HR [facility]; Protocol Stop: 01/14/24 23:59 Last Admin: 01/11/24 16:14 Dose: 100 mls Multivitamins 10 ml/ Amino Acids/Electrolytes/ Fat Emulsion Intravenous 2,260 mls @ 90 mls/hr IV MoWeFr@0900 [facility] Last Admin: 01/11/24 09:20 Dose: 2,260 mls Amino Acids/Electrolytes (Clinimix E 5%-20% Solution) 2,000 mls @ 90 mls/hr IV SuTuThSa@0900 [facility] Magnesium Chloride (Magnesium Chloride 64 Mg Tab) 64 mg PO BEDTIME [facility] Last Admin: 01/11/24 20:31 Dose: 64 mg Metoprolol Tartrate (Metoprolol Tartrate 5 Mg/5 Ml Inj) 5 mg IV Q6HR [facility] Last Admin: 01/11/24 17:09 Dose: 5 mg Vancomycin HCl (Vancomycin Oral Soln 250 Mg/5 Ml Osyr) 500 mg PO Q6HR [facility]; Protocol Stop: 01/14/24 23:59 Last Admin: 01/11/24 17:09 Dose: 500 mg Microbiology Results 01/05/24 08:20 Blood - Blood Aerobic Blood Culture - Final No growth in 5 days. 01/05/24 08:20 Blood - Blood Anaerobic Blood Culture - Final No growth in 5 days. 01/05/24 07:19 Blood - Blood Aerobic Blood Culture - Final No growth in 5 days. 01/05/24 07:19 Blood - Blood Anaerobic Blood Culture - Final No growth in 5 days. 01/05/24 06:12 Clean Catch Urine [place] Count - Final >100,000 CFU/ML. 01/05/24 06:12 Clean Catch Urine - Final MIXED HOWIE. Assessment/ Plan: Nephrology No dyspnea No chest pain No acute events overnight Vitals, medications, blood work and imaging reviewed in the chart General: Oriented, Cooperative HEENT: Atraumatic Neck: Supple Respiratory: Clear to auscultation bilaterally Cardiovascular: Hip edema trace, Irregular heart rate/rhythm Gastrointestinal: Non-distended, Tenderness, Guarding Musculoskeletal: No clubbing, No contractures Integumentary: No rashes, No cyanosis Neurological: Normal speech Laboratory Data (last 24 hrs) 01/05/24 01/05/24 05:39 05:39 WBC 17.30 H Hgb 13.5 Hct 41.7 Plt Count 216 Sodium 133 L Potassium 4.5 BUN 81 H Creatinine 8.09 H Glucose 90 Total Bilirubin 3.9 H AST 65 H ALT 29 Alkaline Phosphatase 55 Lipase 11 L Imagings Data: EXAM DESCRIPTION: CT - Abdomen Pelvis Wo Contrast - 01/05/2024 6:53 am CLINICAL HISTORY: Abdominal pain. ABD PAIN COMPARISON: <Comparisons> TECHNIQUE: CT imaging of the abdomen and pelvis was performed without contrast. Solid organ, bowel and vascular assessment is limited due to lack of IV and oral contrast. All CT scans are performed using dose optimization technique as appropriate and may include automated exposure control or mA/KV adjustment according to patient size. FINDINGS: The lower lung shankar are clear. The liver, spleen, pancreas, adrenal glands and kidneys are within normal limits for a limited non-contrast examination.Cholecystectomy. No bowel obstruction, free air, free fluid or abscess. The colon appears mildly fluid distended throughout its course. Wall thickening is present throughout the colon is mild. No evidence pneumatosis coli. The appendix is normal. Moderate fat containing umbilical. Moderate lower lumbar degenerative changes. IMPRESSION: [id number] pancolitis. A limited non-contrast examination was performed as detailed. Conclusions/Impression: Stage III PROSPER in the setting of hypotension, hypovolemia, aleve and losartan may be prerenal azotemia complicated by ATN Proteinuria -No NSAIDs Hypernatremia/ Hyponatremia -Continue TPN Hypokalemia -Replete prn Hypomagnesemia -Continue oral mag HTN Afib -Continue Metoprolol Hypoalbuminemia -Continue TPN Anemia in chronic illness -Monitor H&H Sepsis C.diff PanColitis Acute on Chronic Cystitis -Continue Abx Hospitalist & Cardiology notes reviewed
[2024-01-12 05:51] LABS: Absolute Eosinophils 0.2 K/uL (0-0.5); Absolute Lymphocytes (CBC) 1.3 K/uL (0.7-4.9); Absolute Monocytes 0.6 K/uL (0.1-1.3); Absolute Neutrophil 5.5 K/uL (1.8-8.0); Basophils % 0.4 % (0-1.3); Eosinophils % 3.2 % (0-4.4); Hematocrit 36.7 % (36.0-45.0); Lymphocytes % 17.4 % (15.3-44.8); MCH 29.4 pg (27.0-35.0); MCHC 32.6 g/dL (32.0-36.0); MCV 90.1 fL (80-100); MPV 8.6 fL (7.6-11.3); Monocytes % 7.8 % (3.3-12.3); Neutrophils % 71.2 % (41.7-73.7); Platelets 155 thou/uL (152-406); RBC Red Blood Cell Count 4.08 M/uL (3.86-4.86); Red Cell Distribution Width 13.8 % (12.1-15.2)
[2024-01-12 05:55] LABS: Anion Gap 5.9 mEq/L (5.0-15.0); Magnesium 1.6 mg/dL (1.6-2.4); Phosphorus 2.6 mg/dL (2.5-4.9); Potassium 3.9 mEq/L (3.5-5.1)
[2024-01-12] MEDS ORDERED: MAGNESIUM SULFATE 1 gm IVPB 1 GM/100 ML BAG IV ONE (06:37)
[2024-01-12] MEDS: MAGNESIUM SULFATE 1 gm IVPB 1 GM/100 ML BAG IV ONE (06:38)
[2024-01-12] MEDS ORDERED: LOSARTAN POTASSIUM 50 MG TABLET ONE (08:09)
[2024-01-12] MEDS: LOSARTAN POTASSIUM 50 MG TABLET PO SCH ×2 (08:11→20:43)
[2024-01-12] MEDS: AA 5%/D20W/ELECTROLYTES-TPN 2,000 ML IV SCH (09:31)
[2024-01-12] MEDS ORDERED: GABAPENTIN 300 MG CAP ONE ×2 (11:55→20:24)
[2024-01-12] MEDS: SERTRALINE HCL 50 MG TAB PO SCH (12:14)
[2024-01-12] MEDS: FENOFIBRATE 160 MG TAB PO SCH (12:14)
[2024-01-12] MEDS: GABAPENTIN 300 MG CAP PO SCH (12:14)
[2024-01-12 12:57] LABS: Specific Gravity 1.015 (1.005-1.030); Sqamous Epithelial <5 /HPF (None Seen); Urine Bacteria <20 /HPF (<20); Urine Bilirubin NEGATIVE (Negative); Urine Blood 2+ (Negative); Urine Clarity Extremely Turbid (Clear); Urine Color Yellow (Yellow); Urine Crystals Unidentified Few /HPF (None Seen); Urine Culture Reflex Order REFLEXED; Urine Glucose NEGATIVE (Negative); Urine Ketones NEGATIVE (Negative); Urine Micro Reflex YN NO BILL MICROSCOPIC; Urine Mucus Slight /HPF (None Seen); Urine Nitrite NEGATIVE (Negative); Urine Protein TRACE (Negative); Urine RBC >50 /HPF (None Seen); Urine Urobilinogen Normal (Normal); Urine WBC >50 /HPF (<5); Urine WBC Clump Few /HPF (None Seen); Urine Yeast (Budding) Many /HPF (None Seen); Urine Yeast with Hyphae Trace /HPF (None Seen)
--- NOTE | 2024-01-12 13:10 | RAD REPORT ---
EXAM DESCRIPTION: RAD - Abdomen 1 View (KUB) - 01/12/2024 12:53 pm CLINICAL HISTORY: ileus Pain COMPARISON: Abdomen 1 View (KUB) dated 01/08/2024 FINDINGS: Gaseous distention of bowel in the central abdomen predominately stomach is noted. The pre viously noted small bowel dilatation has essentially resolved. No suspicious calcifications. No significant bony findings. Cholecystectomy. Stimulator device right lower quadrant. IMPRESSION: Previously noted small bowel ileus has resolved.
[2024-01-12 13:25] LABS: MA/CREAT RATIO 251.4 (< 30.0); UR MICROALBUMIN 8.8 mg/dL (< 1.9); UR PROTEIN 25.8 mg/dL (<11.9); Urine Protein/Creatinine Ratio 0.74 ratio (<0.15)
[2024-01-12] MEDS ORDERED: METOPROLOL TARTRATE 5 MG/5 ML INJ IV ONE (17:47)
[2024-01-12] MEDS ORDERED: METRONIDAZOLE 500mg IVPB 500 MG/100 ML BAG IV ONE (17:47)
[2024-01-12] MEDS ORDERED: HOME MED 1 EA UNK (Famotidine [Famotidine] 40 MG Tablet) PO SCH (21:00)
--- NOTE | 2024-01-12 21:38 | P.PN ---
Date of Service: 01/12/24 Vital Signs Temp Pulse Resp BP Pulse Ox 96.9 F 85 16 149/76 H 92 01/12/24 20:00 01/12/24 20:00 01/12/24 20:00 01/12/24 20:00 01/12/24 20:00 Medications Enteral Nutritional Formula (Ensure Clear 200 Ml Can) 237 ml PO BID [facility] Last Admin: 01/12/24 20:43 Dose: 237 ml Fenofibrate (Fenofibrate 160 Mg Tab) 160 mg PO DAILY [facility] Last Admin: 01/12/24 12:14 Dose: 160 mg Fondaparinux (Fondaparinux Sod 2.5 Mg/0.5 Ml) 2.5 mg SQ DAILY [facility] Stop: 02/10/24 09:01 Last Admin: 01/12/24 08:08 Dose: 2.5 mg Gabapentin (Gabapentin 300 Mg Cap) 300 mg PO BID [facility] Last Admin: 01/12/24 20:43 Dose: 300 mg Metronidazole/Sodium Chloride (Flagyl 500mg/100 Ml Iv Premix) 500 mg in 100 mls @ 200 mls/hr IV Q8HR [facility]; Protocol Stop: 01/14/24 23:59 Last Admin: 01/12/24 17:50 Dose: 100 mls Multivitamins 10 ml/ Amino Acids/Electrolytes/ Fat Emulsion Intravenous 2,260 mls @ 90 mls/hr IV MoWeFr@0900 [facility] Last Admin: 01/11/24 09:20 Dose: 2,260 mls Amino Acids/Electrolytes (Clinimix E 5%-20% Solution) 2,000 mls @ 90 mls/hr IV SuTuThSa@0900 [facility] Last Admin: 01/12/24 09:31 Dose: 2,000 mls Losartan Potassium (Losartan Potassium 50 Mg Tablet) 50 mg PO BID [facility] Last Admin: 01/12/24 20:43 Dose: 50 mg Magnesium Chloride (Magnesium Chloride 64 Mg Tab) 64 mg PO BEDTIME [facility] Last Admin: 01/12/24 20:43 Dose: 64 mg Metoprolol Tartrate (Metoprolol Tartrate 5 Mg/5 Ml Inj) 5 mg IV Q6HR [facility] Last Admin: 01/12/24 17:49 Dose: 5 mg Montelukast Sodium (Montelukast 10 Mg Tab) 10 mg PO DAILY [facility] Sertraline HCl (Sertraline Hcl 50 Mg Tab) 50 mg PO DAILY [facility] Last Admin: 01/12/24 12:14 Dose: 50 mg Vancomycin HCl (Vancomycin Oral Soln 250 Mg/5 Ml [place]) 500 mg PO Q6HR [facility]; Protocol Stop: 01/14/24 23:59 Last Admin: 01/12/24 18:18 Dose: 500 mg Microbiology Results 01/05/24 08:20 Blood - Blood Aerobic Blood Culture - Final No growth in 5 days. 01/05/24 08:20 Blood - Blood Anaerobic Blood Culture - Final No growth in 5 days. 01/05/24 07:19 Blood - Blood Aerobic Blood Culture - Final No growth in 5 days. 01/05/24 07:19 Blood - Blood Anaerobic Blood Culture - Final No growth in 5 days. 01/05/24 06:12 Clean Catch Urine [place] Count - Final >100,000 CFU/ML. 01/05/24 06:12 Clean Catch Urine - Final MIXED HOWIE. Assessment/ Plan: Nephrology No dyspnea No chest pain Feeling better with improved mentation No acute events overnight Vitals, medications, blood work and imaging reviewed in the chart General: Oriented, Cooperative HEENT: Atraumatic Neck: Supple Respiratory: Clear to auscultation bilaterally Cardiovascular: Hip edema trace, Irregular heart rate/rhythm Gastrointestinal: Non-distended, Tenderness, Guarding Musculoskeletal: No clubbing, No contractures Integumentary: No rashes, No cyanosis Neurological: Normal speech Laboratory Data (last 24 hrs) 01/05/24 01/05/24 05:39 05:39 WBC 17.30 H Hgb 13.5 Hct 41.7 Plt Count 216 Sodium 133 L Potassium 4.5 BUN 81 H Creatinine 8.09 H Glucose 90 Total Bilirubin 3.9 H AST 65 H ALT 29 Alkaline Phosphatase 55 Lipase 11 L Imagings Data: EXAM DESCRIPTION: CT - Abdomen Pelvis Wo Contrast - 01/05/2024 6:53 am CLINICAL HISTORY: Abdominal pain. ABD PAIN COMPARISON: <Comparisons> TECHNIQUE: CT imaging of the abdomen and pelvis was performed without contrast. Solid organ, bowel and vascular assessment is limited due to lack of IV and oral contrast. All CT scans are performed using dose optimization technique as appropriate and may include automated exposure control or mA/KV adjustment according to patient size. FINDINGS: The lower lung shankar are clear. The liver, spleen, pancreas, adrenal glands and kidneys are within normal limits for a limited non-contrast examination.Cholecystectomy. No bowel obstruction, free air, free fluid or abscess. The colon appears mildly fluid distended throughout its course. Wall thickening is present throughout the colon is mild. No evidence pneumatosis coli. The appendix is normal. Moderate fat containing umbilical. Moderate lower lumbar degenerative changes. IMPRESSION: [id number] pancolitis. A limited non-contrast examination was performed as detailed. Conclusions/Impression: Stage III PROSPER in the setting of hypotension, hypovolemia, aleve and losartan may be prerenal azotemia complicated by ATN Proteinuria -No NSAIDs -Repeat UA today Hypernatremia/ Hyponatremia -Continue TPN -Encourage free water intake Hypokalemia -Replete prn Hypomagnesemia -Continue oral mag HTN Afib -Continue Metoprolol Hypoalbuminemia -Continue TPN Anemia in chronic illness -Monitor H&H Sepsis C.diff PanColitis Acute on Chronic Cystitis -Continue Abx Hospitalist & Cardiology notes reviewed
--- NOTE | 2024-01-12 22:06 | P.PN ---
Subjective Date of Service: 01/12/24 Primary Care Provider: Dr. Almanza Chief Complaint: BACK TO NORMAL FOR MENTATION. Subjective: Improving SHE IS DOING GOOD ABLE TO RETAIN RECTAL VANCOMYCIN WITH USE OF GARZA CATHETER. SHE IS LOT BETTER HAS BM NOW. NO PAIN NO FEVER Review of Systems 10-point ROS is otherwise unremarkable General: Weakness Physical Examination - Vital Signs Temperature: 96.9 F Blood Pressure: 149/76 Pulse: 85 Respirations: 16 Pulse Ox (%): 92 - Physical Exam General: Mild distress, Obese HEENT: Atraumatic, PERRLA, EOMI Neck: Supple, JVD not distended Respiratory: Clear to auscultation bilaterally, Normal air movement Cardiovascular: Regular rate/rhythm, Normal S1 S2 Gastrointestinal: Normal bowel sounds, No tenderness Musculoskeletal: No tenderness Integumentary: No rashes Neurological: Normal speech, Normal tone, Normal affect Lymphatics: No axilla or inguinal lymphadenopathy - Studies Medications List Reviewed: Yes Assessment And Plan - Current Problems (Diagnosis) (1) Acute renal failure Current Visit: Yes Status: Resolved Plan: THIS IS POSSIBLY REVERSIBLE IF SHE HAS ONLY PRERENAL COMPONENT ATN IS ALSO POSSIBLE FROM HYPOVOLEMIC SHOCK. CREAT IS DOWN FROM 8 TO 2.4. K IS GOOD. IMPROVES DAILY. CREAT DOWN TO 1.4. (2) C. difficile colitis Current Visit: Yes Status: Acute Plan: SEVERE CONDITION CONTINUE TRIPLE THERAPY IMPROVED. GARZA INDUCED RECTAL INSTILLATION IS WORKING SO FAR. DOING LOT BETTER START PT DOWNGRADE TO REG FLOOR OVERFLOW IN ICU. (3) Septic shock Current Visit: Yes Status: Resolved Plan: ABOVE IV FLUIDS LEVOPHED DAILY LAB. PICC LINE. STILL ON LEVOPHED IMPROVING. (4) A-fib Current Visit: Yes Status: Resolved Plan: AMIODARONE CAN GIVE RISE TO INV. NEUROLOGICAL MOVEMENTS. WILL STOP IT AND CHANGE TO IV METOPROLOL. PLATELETES ARE LOWER. WE STOPPED HEPARIN A FEW DAYS AGO. WE DO HAVE ARIXTRA AND WE WILL START THAT FOR PREVENTIVE DOSE. SCD BILAT. STABLE. NSR NOW. (5) Hypomagnesemia Current Visit: Yes Status: Resolved Plan: REPLACE AND FU (6) Protein calorie malnutrition Current Visit: Yes Status: Acute Plan: PPN FOR SHORT DURATION LOW ALB FROM ACUTE ILLNESS. (7) Abnormal urinalysis Current Visit: Yes Status: Acute Plan: NO NEED TO TREAT FOR NOW. SHE HAS NOSS TREATING THIS WILL FEED C DIFF THAT IS A MAJOR PROBLEM NOW. CANCEL DR. HUIZAR CONSULT. CONTINUE C DIFF THERAPY. WILL HAVE TO AVOID ANTIBIOTICS SHE IS ASYMPTOMATIC (8) Tardive dyskinesia Current Visit: Yes Status: Resolved Plan: THIS CAN BE AMIODARONE SE STOP IT AND SEE HOW IT GOES CHANGE TO METOPROLOL IV SHE IS NOT IN A FIB NOW. HOPEFULLY WE WILL NOT NEED AMIODARONE FOR NOW. IMPROVED OFF AMIODARONE NOW. (9) Ileus Current Visit: Yes Status: Resolved Plan: I WILL DC RECTAL VANCOMCYIN NOW SHE IS ABLE TO TAKE ORAL VANCO AND IV FLAGYL IMPROVED C DIFF HAS LEAD TO IMPROVED ILEUS.
[2024-01-13 03:18] LABS: Absolute Eosinophils 0.1 K/uL (0-0.5); Absolute Lymphocytes (CBC) 1.4 K/uL (0.7-4.9); Absolute Monocytes 0.5 K/uL (0.1-1.3); Absolute Neutrophil 5.7 K/uL (1.8-8.0); Basophils % 0.5 % (0-1.3); Eosinophils % 1.9 % (0-4.4); Hematocrit 37.7 % (36.0-45.0); Hemoglobin 11.4 g/dL (12.0-15.0); Lymphocytes % 18.1 % (15.3-44.8); MCH 29.4 pg (27.0-35.0); MCHC 30.2 g/dL (32.0-36.0); MCV 97.2 fL (80-100); MPV 8.6 fL (7.6-11.3); Monocytes % 5.9 % (3.3-12.3); Neutrophils % 73.6 % (41.7-73.7); Platelets 164 thou/uL (152-406); RBC Red Blood Cell Count 3.88 M/uL (3.86-4.86); Red Cell Distribution Width 15.6 % (12.1-15.2)
[2024-01-13 05:53] LABS: Potassium 4.1 mEq/L (3.5-5.1)
[2024-01-13 05:54] LABS: Anion Gap 9.5 mEq/L (5.0-15.0); Bilirubin Direct 0.6 mg/dL (0-0.2); Bilirubin Indirect, Calculated 0.3 mg/dL (0.2-0.8); Bilirubin Total 0.9 mg/dL (0.2-1.0)
[2024-01-13 05:55] LABS: Albumin 1.9 g/dL (3.4-5.0); Albumin/Globulin Ratio 0.5 (1.1-1.8); Globulin 3.6 g/dL (2.3-3.5); Magnesium 1.6; Protein, Total 5.5 g/dL (6.4-8.2)
[2024-01-13] MEDS ORDERED: LOSARTAN POTASSIUM 50 MG TABLET PO SCH (06:00)
[2024-01-13 06:24] VITALS: BMI 31.9
[2024-01-13] MEDS: MAGNESIUM SULFATE 1 gm IVPB 1 GM/100 ML BAG IV ONE (06:36)
[2024-01-13] MEDS ORDERED: GABAPENTIN 300 MG CAP ONE (07:33)
[2024-01-13] MEDS: AA 5%/D20W/ELECTROLYTES-TPN 2,000 ML IV SCH (08:34)
[2024-01-13] MEDS: MONTELUKAST 10 MG TAB PO SCH (08:43)
[2024-01-13] MEDS: LOSARTAN POTASSIUM 50 MG TABLET PO SCH (13:19)
--- NOTE | 2024-01-13 14:17 | PN ---
Date of Progress Note: 01/13/2024 Subjective: Seen by bedside. Doing clinically well. No chest pain or shortness of breath or cough. Review of Systems: No chest pain, shortness of breath, orthopnea or cough. No nausea, vomiting, or diarrhea. All other systems were reviewed, they were negative. Objective: Vital Signs: Reviewed. Head and Neck: Pupils are equal, reactive to light. Intact eye movements. No JVD. No cervical lym phadenopathy. Neck is supple. Thyroid is not enlarged. Lungs: Clear to auscultation bilaterally. No rhonchi, wheezing, or crackles. No accessory muscle u se. Heart: Irregular. No extra sounds. Abdomen: Soft, nontender. Bowel sounds positive. No organomegaly. No masses or hernia. No rigidi ty or rebound. Extremities: No edema, clubbing, cyanosis. Intact pulses. Skin: No rash. No nodule. Neurologic: Alert, awake, oriented x3. No acute focal deficits appreciated. Investigations: BUN 25, creatinine is 0.66. Assessment And Recommendations: 1.Atrial fibrillation with rapid ventricular response, now rate is controlled. Recommend to add met oprolol 25 mg twice a day and also on Eliquis 5 mg twice a day. 2.Acute renal failure due to severe dehydration and this is resolved. 3.Clostridium difficile colitis, on proper treatment. Cardiology will sign off and follow up as an outpatient. SR/MODL Voice ID: [id number] Report ID: [id number]
--- NOTE | 2024-01-13 14:18 | P.PN ---
Subjective Date of Service: 01/13/24 Primary Care Provider: Dr. Almanza Chief Complaint: BACK TO NORMAL FOR MENTATION. Subjective: Improving SHE IS FEELING BETTER HAD TWO LOSE STOOLS. SHE DENIES PAIN. Review of Systems 10-point ROS is otherwise unremarkable General: Weakness Physical Examination - Vital Signs Temperature: 97.4 F Blood Pressure: 119/55 Pulse: 95 Respirations: 17 Pulse Ox (%): 97 - Physical Exam General: Oriented x3, Mild distress HEENT: Atraumatic, PERRLA, EOMI Neck: Supple, JVD not distended Respiratory: Clear to auscultation bilaterally, Normal air movement Cardiovascular: Regular rate/rhythm, Normal S1 S2 Gastrointestinal: Normal bowel sounds, No tenderness Musculoskeletal: No tenderness Integumentary: No rashes Neurological: Normal speech, Normal tone, Normal affect Lymphatics: No axilla or inguinal lymphadenopathy - Studies Medications List Reviewed: Yes Assessment And Plan - Current Problems (Diagnosis) (1) Acute renal failure Current Visit: Yes Status: Resolved Plan: THIS IS POSSIBLY REVERSIBLE IF SHE HAS ONLY PRERENAL COMPONENT ATN IS ALSO POSSIBLE FROM HYPOVOLEMIC SHOCK. CREAT IS DOWN FROM 8 TO 2.4. K IS GOOD. IMPROVES DAILY. CREAT DOWN TO 1.4. (2) C. difficile colitis Current Visit: Yes Status: Acute Plan: SEVERE CONDITION CONTINUE TRIPLE THERAPY IMPROVED. GARZA INDUCED RECTAL INSTILLATION IS WORKING SO FAR. DOING LOT BETTER START PT DOWNGRADE TO REG FLOOR OVERFLOW IN ICU. IMPROVING. SHE IS DOING PT STILL WEAK MAY NEED A COUPLE OF DAYS HERE. (3) Septic shock Current Visit: Yes Status: Resolved Plan: ABOVE IV FLUIDS LEVOPHED DAILY LAB. PICC LINE. STILL ON LEVOPHED IMPROVING. (4) A-fib Current Visit: Yes Status: Resolved Plan: AMIODARONE CAN GIVE RISE TO INV. NEUROLOGICAL MOVEMENTS. WILL STOP IT AND CHANGE TO IV METOPROLOL. PLATELETES ARE LOWER. WE STOPPED HEPARIN A FEW DAYS AGO. WE DO HAVE ARIXTRA AND WE WILL START THAT FOR PREVENTIVE DOSE. SCD BILAT. STABLE. NSR NOW. (5) Hypomagnesemia Current Visit: Yes Status: Resolved Plan: REPLACE AND FU (6) Protein calorie malnutrition Current Visit: Yes Status: Acute Plan: PPN FOR SHORT DURATION LOW ALB FROM ACUTE ILLNESS. (7) Abnormal urinalysis Current Visit: Yes Status: Acute Plan: NO NEED TO TREAT FOR NOW. SHE HAS NOSS TREATING THIS WILL FEED C DIFF THAT IS A MAJOR PROBLEM NOW. CANCEL DR. HUIZAR CONSULT. CONTINUE C DIFF THERAPY. WILL HAVE TO AVOID ANTIBIOTICS SHE IS ASYMPTOMATIC (8) Tardive dyskinesia Current Visit: Yes Status: Resolved Plan: THIS CAN BE AMIODARONE SE STOP IT AND SEE HOW IT GOES CHANGE TO METOPROLOL IV SHE IS NOT IN A FIB NOW. HOPEFULLY WE WILL NOT NEED AMIODARONE FOR NOW. IMPROVED OFF AMIODARONE NOW. (9) Ileus Current Visit: Yes Status: Resolved Plan: I WILL DC RECTAL VANCOMCYIN NOW SHE IS ABLE TO TAKE ORAL VANCO AND IV FLAGYL IMPROVED C DIFF HAS LEAD TO IMPROVED ILEUS.
[2024-01-13] MEDS: AA 5%/D20W/ELECTROLYTES-TPN 2,000 ML, Lipids 20% 250 ML with MULTIVITAMINS INJ 10 ML IV SCH (17:51)
[2024-01-14 04:50] LABS: Absolute Eosinophils 0.4 K/uL (0-0.5); Absolute Lymphocytes (CBC) 2.1 K/uL (0.7-4.9); Absolute Monocytes 0.6 K/uL (0.1-1.3); Absolute Neutrophil 7.4 K/uL (1.8-8.0); Basophils % 0.5 % (0-1.3); Eosinophils % 3.4 % (0-4.4); Hematocrit 31.8 % (36.0-45.0); Hemoglobin 10.7 g/dL (12.0-15.0); Lymphocytes % 20.1 % (15.3-44.8); MCH 30.4 pg (27.0-35.0); MCHC 33.5 g/dL (32.0-36.0); MCV 90.8 fL (80-100); MPV 8.5 fL (7.6-11.3); Monocytes % 5.9 % (3.3-12.3); Neutrophils % 70.1 % (41.7-73.7); Platelets 185 thou/uL (152-406); RBC Red Blood Cell Count 3.51 M/uL (3.86-4.86); Red Cell Distribution Width 13.9 % (12.1-15.2)
[2024-01-14 05:15] LABS: Anion Gap 6.2 mEq/L (5.0-15.0); Magnesium 1.9 mg/dL (1.6-2.4); Potassium 4.2 mEq/L (3.5-5.1)
--- NOTE | 2024-01-14 10:46 | P.PN ---
Subjective Date of Service: 01/14/24 Primary Care Provider: Dr. Almanza Chief Complaint: BACK TO NORMAL FOR MENTATION. Subjective: Improving SHE IS FEELING BETTER HAD TWO LOSE STOOLS. SHE DENIES PAIN. FEELS GREAT STILL HAS DIARRHEA ABOUT 3 A DAY. Review of Systems 10-point ROS is otherwise unremarkable General: Weakness Physical Examination - Vital Signs Temperature: 97.4 F Blood Pressure: 116/57 Pulse: 103 Respirations: 14 Pulse Ox (%): 100 - Physical Exam General: Alert, In no apparent distress HEENT: Atraumatic, PERRLA, EOMI Neck: Supple, JVD not distended Respiratory: Clear to auscultation bilaterally, Normal air movement Cardiovascular: Regular rate/rhythm, Normal S1 S2 Gastrointestinal: Normal bowel sounds, No tenderness Musculoskeletal: No tenderness Integumentary: No rashes Neurological: Normal speech, Normal tone, Normal affect Lymphatics: No axilla or inguinal lymphadenopathy - Studies Medications List Reviewed: Yes Assessment And Plan - Current Problems (Diagnosis) (1) Acute renal failure Current Visit: Yes Status: Resolved Plan: DEHYDRATED TODAY FROM HYPOTENSION STOP LOSARTAN IV FULIDS. DAILY LAB. (2) C. difficile colitis Current Visit: Yes Status: Acute Plan: SEVERE CONDITION CONTINUE TRIPLE THERAPY IMPROVED. GARZA INDUCED RECTAL INSTILLATION IS WORKING SO FAR. DOING LOT BETTER START PT DOWNGRADE TO REG FLOOR OVERFLOW IN ICU. IMPROVING. SHE IS DOING PT STILL WEAK MAY NEED A COUPLE OF DAYS HERE. (3) Septic shock Current Visit: Yes Status: Resolved Plan: ABOVE IV FLUIDS LEVOPHED DAILY LAB. PICC LINE. STILL ON LEVOPHED IMPROVING. (4) A-fib Current Visit: Yes Status: Resolved Plan: AMIODARONE CAN GIVE RISE TO INV. NEUROLOGICAL MOVEMENTS. WILL STOP IT AND CHANGE TO IV METOPROLOL. PLATELETES ARE LOWER. WE STOPPED HEPARIN A FEW DAYS AGO. WE DO HAVE ARIXTRA AND WE WILL START THAT FOR PREVENTIVE DOSE. SCD BILAT. STABLE. NSR NOW. (5) Hypomagnesemia Current Visit: Yes Status: Resolved Plan: REPLACE AND FU (6) Protein calorie malnutrition Current Visit: Yes Status: Acute Plan: PPN FOR SHORT DURATION LOW ALB FROM ACUTE ILLNESS. (7) Abnormal urinalysis Current Visit: Yes Status: Acute Plan: NO NEED TO TREAT FOR NOW. SHE HAS NOSS TREATING THIS WILL FEED C DIFF THAT IS A MAJOR PROBLEM NOW. CANCEL DR. HUIZAR CONSULT. CONTINUE C DIFF THERAPY. WILL HAVE TO AVOID ANTIBIOTICS SHE IS ASYMPTOMATIC (8) Tardive dyskinesia Current Visit: Yes Status: Resolved Plan: THIS CAN BE AMIODARONE SE STOP IT AND SEE HOW IT GOES CHANGE TO METOPROLOL IV SHE IS NOT IN A FIB NOW. HOPEFULLY WE WILL NOT NEED AMIODARONE FOR NOW. IMPROVED OFF AMIODARONE NOW. (9) Ileus Current Visit: Yes Status: Resolved Plan: I WILL DC RECTAL VANCOMCYIN NOW SHE IS ABLE TO TAKE ORAL VANCO AND IV FLAGYL IMPROVED C DIFF HAS LEAD TO IMPROVED ILEUS.
[2024-01-14] MEDS: NACHLORIDE 0.45% 1,000 ML IV SCH (12:18)
[2024-01-14] MEDS: LOPERAMIDE HCL 2 MG CAPSULE PO PRN (16:23)
[2024-01-14] MEDS ORDERED: AA 5%/D20W/ELECTROLYTES-TPN 2,000 ML IV SCH ×2 (17:00)
--- NOTE | 2024-01-14 20:21 | PN ---
Subjective: The patient seen and evaluated at [facility] in room 414. She prese nted with some acute kidney injury, which resolved with IV fluids. Has not been eating and drinking well. Has had some diarrhea. Currently also getting supplemental lipids infused and also IV fluids, is clinically improving. Blood pressures have been slightly on the lower side. Blood pressure medi cations have been adjusted. Losartan was recently stopped by Dr. Almanza and I agree with that. The p atient is otherwise looking comfortable except for some blood pressure being on the lower side earlie r today and yesterday. The patient's pulse is stable. Vitals are looking comfortable. She is able to answer questions appropriately. Objective: Vital Signs: Reviewed. Last blood pressure 96/49, before that 116/57; pulse about 90 to 100; respirations around 14 and comfortable; O2 saturations 100% on room air. Lungs: Clear to auscultation. Abdomen: Soft. Extremities: Reveal no edema. Cardiac: Heart sounds are regular. Assessment And Plan: The patient with some acute kidney injury. Creatinine did bump up from her cre atinine earlier of about 0.66/ 1.42 in the setting of low blood pressure and volume deplet ion. Continue with IV fluids. Continue to encourage p.o. intake as tolerated. We will recommend cu tting back on gabapentin to only at bedtime, as this may be also contributing to low blood pressure. Once acute issues are resolved, we will benefit from evaluation for residual renal status and treatm ent of same. /ANAIS Voice ID: [id number] Report ID: [id number]
[2024-01-14] MEDS: GABAPENTIN 300 MG CAP PO SCH (21:00)
[2024-01-15 03:54] LABS: Absolute Basophils 0.1 K/uL (0-0.5); Absolute Eosinophils 0.4 K/uL (0-0.5); Absolute Lymphocytes (CBC) 2.5 K/uL (0.7-4.9); Absolute Monocytes 0.8 K/uL (0.1-1.3); Absolute Neutrophil 6.7 K/uL (1.8-8.0); Basophils % 0.6 % (0-1.3); Eosinophils % 3.7 % (0-4.4); Hematocrit 29.1 % (36.0-45.0); Hemoglobin 9.6 g/dL (12.0-15.0); Lymphocytes % 23.8 % (15.3-44.8); MCV 90.7 fL (80-100); MPV 8.1 fL (7.6-11.3); Monocytes % 7.9 % (3.3-12.3); Platelets 188 thou/uL (152-406); RBC Red Blood Cell Count 3.21 M/uL (3.86-4.86); Red Cell Distribution Width 13.7 % (12.1-15.2)
[2024-01-15 04:10] LABS: Anion Gap 6.8 mEq/L (5.0-15.0); Potassium 4.8 mEq/L (3.5-5.1)
--- NOTE | 2024-01-15 15:50 | P.PN ---
Subjective Date of Service: 01/15/24 Primary Care Provider: Dr. Almanza Chief Complaint: BACK TO NORMAL FOR MENTATION. Subjective: No new changes SHE IS FEELING BETTER HAD TWO LOSE STOOLS. SHE DENIES PAIN. FEELS GREAT STILL HAS DIARRHEA ABOUT 3 A DAY. CONTINUES TO HAVE DIARRHEA. Review of Systems 10-point ROS is otherwise unremarkable General: Weakness Physical Examination - Vital Signs Temperature: 97.3 F Blood Pressure: 101/44 Pulse: 104 Respirations: 18 Pulse Ox (%): 99 - Physical Exam General: Mild distress HEENT: Atraumatic, PERRLA, EOMI Neck: Supple, JVD not distended Respiratory: Clear to auscultation bilaterally, Normal air movement Cardiovascular: Regular rate/rhythm, Normal S1 S2 Gastrointestinal: Normal bowel sounds, No tenderness Musculoskeletal: No tenderness Integumentary: No rashes Neurological: Normal speech, Normal tone, Normal affect Lymphatics: No axilla or inguinal lymphadenopathy - Studies Medications List Reviewed: Yes Assessment And Plan - Current Problems (Diagnosis) (1) Acute renal failure Current Visit: Yes Status: Resolved Plan: DEHYDRATED TODAY FROM HYPOTENSION STOP LOSARTAN IV FULIDS. DAILY LAB. (2) C. difficile colitis Current Visit: Yes Status: Acute Plan: SEVERE CONDITION CONTINUE TRIPLE THERAPY IMPROVED. GARZA INDUCED RECTAL INSTILLATION IS WORKING SO FAR. DOING LOT BETTER START PT DOWNGRADE TO REG FLOOR OVERFLOW IN ICU. IMPROVING. SHE IS DOING PT STILL WEAK MAY NEED A COUPLE OF DAYS HERE. CONT MEDS REFRACTORY C DIFF. (3) Septic shock Current Visit: Yes Status: Resolved Plan: ABOVE IV FLUIDS LEVOPHED DAILY LAB. PICC LINE. STILL ON LEVOPHED IMPROVING. (4) A-fib Current Visit: Yes Status: Resolved Plan: AMIODARONE CAN GIVE RISE TO INV. NEUROLOGICAL MOVEMENTS. WILL STOP IT AND CHANGE TO IV METOPROLOL. PLATELETES ARE LOWER. WE STOPPED HEPARIN A FEW DAYS AGO. WE DO HAVE ARIXTRA AND WE WILL START THAT FOR PREVENTIVE DOSE. SCD BILAT. STABLE. NSR NOW. (5) Hypomagnesemia Current Visit: Yes Status: Resolved Plan: REPLACE AND FU (6) Protein calorie malnutrition Current Visit: Yes Status: Acute Plan: PPN FOR SHORT DURATION LOW ALB FROM ACUTE ILLNESS. (7) Abnormal urinalysis Current Visit: Yes Status: Acute Plan: NO NEED TO TREAT FOR NOW. SHE HAS NOSS TREATING THIS WILL FEED C DIFF THAT IS A MAJOR PROBLEM NOW. CANCEL DR. HUIZAR CONSULT. CONTINUE C DIFF THERAPY. WILL HAVE TO AVOID ANTIBIOTICS SHE IS ASYMPTOMATIC (8) Tardive dyskinesia Current Visit: Yes Status: Resolved Plan: THIS CAN BE AMIODARONE SE STOP IT AND SEE HOW IT GOES CHANGE TO METOPROLOL IV SHE IS NOT IN A FIB NOW. HOPEFULLY WE WILL NOT NEED AMIODARONE FOR NOW. IMPROVED OFF AMIODARONE NOW. (9) Ileus Current Visit: Yes Status: Resolved Plan: I WILL DC RECTAL VANCOMCYIN NOW SHE IS ABLE TO TAKE ORAL VANCO AND IV FLAGYL IMPROVED C DIFF HAS LEAD TO IMPROVED ILEUS.
[2024-01-15] MEDS: VANCOMYCIN ORAL SOLN 250 MG/5 ML OSYR PO SCH (17:30)
[2024-01-15] MEDS ORDERED: METRONIDAZOLE 500mg IVPB 500 MG/100 ML BAG IV SCH (18:00)
--- NOTE | 2024-01-15 19:57 | PN ---
Subjective: The patient seen in room 414 at [facility] in [place]. The patient is a lert, awake. Says she feels better than yesterday. Denies any new issues. Has been able to take so me p.o. intake, but is getting mainly IV fluids and also has been getting lipid supplements. The pat sary has tolerated it well. Objective: Vital Signs: Blood pressure is still on lower side but stable at 101/44, pulse is about 90 to 100 and regular, respirations about 14. General: Diarrhea has improved. Lungs: Clear to auscultation. Abdomen: Soft. Extremities: With no edema. Laboratory Data: WBC count 10.4, hemoglobin 9.6, hematocrit 29.1, platelet count 188. Sodium 135, p otassium 4.8, chloride 101, bicarb is 22, BUN 64, creatinine is 1.28. The creatinine has improved co mpared to yesterday from 1.42. Assessment And Plan: Acute kidney injury on question of some mild chronic kidney disease. Patient w ith volume depletion, recent diarrhea, malnutrition. Agree with IV fluids. Continue to monitor with encouraging p.o. intake. The patient's gabapentin was reduced to once at night and did not get her dose last night as her blood pressure was on the lower side. The patient has not noticed any change or any change in her pain and was able to hold off on gabapentin all day yesterday. Consider decreas ing this medication going forward, perhaps tapering it down to 100 mg at night only, and if the patie nt does not need it, it can be completely discontinued. This may be contributing to her low blood pr essure leading to also her fluctuation in creatinine. At this point, kidney function is improving with improved volume status a nd improved blood pressure. /ANAIS Voice ID: [id number] Report ID: [id number]
[2024-01-16 06:46] LABS: Absolute Basophils 0.1 K/uL (0-0.5); Absolute Eosinophils 0.4 K/uL (0-0.5); Absolute Lymphocytes (CBC) 1.6 K/uL (0.7-4.9); Absolute Monocytes 0.8 K/uL (0.1-1.3); Absolute Neutrophil 5.7 K/uL (1.8-8.0); Basophils % 1.1 % (0-1.3); Eosinophils % 4.5 % (0-4.4); Hematocrit 30.5 % (36.0-45.0); Hemoglobin 10.1 g/dL (12.0-15.0); Lymphocytes % 19.1 % (15.3-44.8); MCH 30.3 pg (27.0-35.0); MCHC 33.2 g/dL (32.0-36.0); MCV 91.4 fL (80-100); MPV 7.6 fL (7.6-11.3); Monocytes % 8.8 % (3.3-12.3); Neutrophils % 66.5 % (41.7-73.7); Platelets 226 thou/uL (152-406); RBC Red Blood Cell Count 3.34 M/uL (3.86-4.86); Red Cell Distribution Width 13.7 % (12.1-15.2)
[2024-01-16 07:03] LABS: Anion Gap 7.2 mEq/L (5.0-15.0); Potassium 5.2 mEq/L (3.5-5.1)
[2024-01-16] MEDS: LACTOBACILLUS/ACIDOPHILUS TAB PO SCH (10:35)
[2024-01-16] MEDS: carvediloL 6.25 MG TAB PO SCH (10:35)
[2024-01-16] MEDS: CHOLESTYRAMINE/ASP 4 GM/PKT PO SCH (16:37)
--- NOTE | 2024-01-16 17:20 | P.PN ---
Subjective Date of Service: 01/16/24 Primary Care Provider: Dr. Almanza Chief Complaint: BACK TO NORMAL FOR MENTATION. Subjective: No new changes CONTINUES TO HAVE DIARRHEA. RESUME VANCOMYCIN ORAL IV FLUIDS SHE GETS DEHYDRATION. COREG WILL HELP CONTROL TACHYCARDIA. STABLE NO SEPSIS NOW. Physical Examination - Vital Signs Temperature: 97.2 F Blood Pressure: 103/54 Pulse: 90 Respirations: 17 Pulse Ox (%): 98 - Studies Medications List Reviewed: Yes Assessment And Plan - Current Problems (Diagnosis) (1) Acute renal failure Current Visit: Yes Status: Resolved Plan: DEHYDRATED TODAY FROM HYPOTENSION STOP LOSARTAN IV FULIDS. DAILY LAB. (2) C. difficile colitis Current Visit: Yes Status: Acute Plan: SEVERE CONDITION CONTINUE TRIPLE THERAPY IMPROVED. GARZA INDUCED RECTAL INSTILLATION IS WORKING SO FAR. DOING LOT BETTER START PT DOWNGRADE TO REG FLOOR OVERFLOW IN ICU. IMPROVING. SHE IS DOING PT STILL WEAK MAY NEED A COUPLE OF DAYS HERE. CONT MEDS REFRACTORY C DIFF. (3) Septic shock Current Visit: Yes Status: Resolved Plan: ABOVE IV FLUIDS LEVOPHED DAILY LAB. PICC LINE. STILL ON LEVOPHED IMPROVING. (4) A-fib Current Visit: Yes Status: Resolved Plan: AMIODARONE CAN GIVE RISE TO INV. NEUROLOGICAL MOVEMENTS. WILL STOP IT AND CHANGE TO IV METOPROLOL. PLATELETES ARE LOWER. WE STOPPED HEPARIN A FEW DAYS AGO. WE DO HAVE ARIXTRA AND WE WILL START THAT FOR PREVENTIVE DOSE. SCD BILAT. STABLE. NSR NOW. (5) Hypomagnesemia Current Visit: Yes Status: Resolved Plan: REPLACE AND FU (6) Protein calorie malnutrition Current Visit: Yes Status: Acute Plan: PPN FOR SHORT DURATION LOW ALB FROM ACUTE ILLNESS. (7) Abnormal urinalysis Current Visit: Yes Status: Acute Plan: NO NEED TO TREAT FOR NOW. SHE HAS NOSS TREATING THIS WILL FEED C DIFF THAT IS A MAJOR PROBLEM NOW. CANCEL DR. HUIZAR CONSULT. CONTINUE C DIFF THERAPY. WILL HAVE TO AVOID ANTIBIOTICS SHE IS ASYMPTOMATIC (8) Tardive dyskinesia Current Visit: Yes Status: Resolved Plan: THIS CAN BE AMIODARONE SE STOP IT AND SEE HOW IT GOES CHANGE TO METOPROLOL IV SHE IS NOT IN A FIB NOW. HOPEFULLY WE WILL NOT NEED AMIODARONE FOR NOW. IMPROVED OFF AMIODARONE NOW. (9) Ileus Current Visit: Yes Status: Resolved Plan: I WILL DC RECTAL VANCOMCYIN NOW SHE IS ABLE TO TAKE ORAL VANCO AND IV FLAGYL IMPROVED C DIFF HAS LEAD TO IMPROVED ILEUS.
--- NOTE | 2024-01-16 22:19 | P.PN ---
Date of Service: 01/16/24 Vital Signs Temp Pulse Resp BP Pulse Ox 97.2 F 90 17 103/54 L 98 01/16/24 17:20 01/16/24 17:20 01/16/24 17:20 01/16/24 17:20 01/16/24 17:20 Medications Carvedilol (Carvedilol 3.125 Mg Tab) 3.125 mg PO BIDWM [facility] Cholestyramine Resin (Cholestyramine/Asp 4 Gm/Pkt) 4 gm PO BIDWM [facility] Last Admin: 01/16/24 16:37 Dose: 4 gm Enteral Nutritional Formula (Ensure Clear 200 Ml Can) 237 ml PO BID [facility] Last Admin: 01/16/24 20:23 Dose: Not Given Fenofibrate (Fenofibrate 160 Mg Tab) 160 mg PO DAILY [facility] Last Admin: 01/16/24 10:35 Dose: 160 mg Fondaparinux (Fondaparinux Sod 2.5 Mg/0.5 Ml) 2.5 mg SQ DAILY [facility] Stop: 02/10/24 09:01 Last Admin: 01/16/24 10:35 Dose: 2.5 mg Gabapentin (Gabapentin 300 Mg Cap) 300 mg PO BEDTIME [facility] Last Admin: 01/16/24 20:23 Dose: 300 mg Sodium Chloride (Sodium Chloride 0.45%) 1,000 mls @ 75 mls/hr IV .[id number] [facility] Last Admin: 01/16/24 16:37 Dose: 1,000 mls Lactobacillus Acidoph/Bulgaricus (Lactobacillus/Acidophilus Tab) 1 tab PO TID [facility] Last Admin: 01/16/24 20:23 Dose: 1 tab Loperamide HCl (Loperamide Hcl 2 Mg Capsule) 2 mg PO Q6H PRN PRN Reason: DIARRHEA Last Admin: 01/16/24 04:08 Dose: 2 mg Magnesium Chloride (Magnesium Chloride 64 Mg Tab) 64 mg PO BEDTIME [facility] Last Admin: 01/16/24 20:23 Dose: 64 mg Montelukast Sodium (Montelukast 10 Mg Tab) 10 mg PO DAILY [facility] Last Admin: 01/16/24 10:34 Dose: 10 mg Sertraline HCl (Sertraline Hcl 50 Mg Tab) 50 mg PO DAILY [facility] Last Admin: 01/16/24 10:36 Dose: 50 mg Vancomycin HCl (Vancomycin Oral Soln 250 Mg/5 Ml [place]) 500 mg PO Q6H ABDIFATAH; Protocol Stop: 03/15/24 16:01 Last Admin: 01/16/24 21:11 Dose: 500 mg Microbiology Results 01/05/24 08:20 Blood - Blood Aerobic Blood Culture - Final No growth in 5 days. 01/05/24 08:20 Blood - Blood Anaerobic Blood Culture - Final No growth in 5 days. 01/05/24 07:19 Blood - Blood Aerobic Blood Culture - Final No growth in 5 days. 01/05/24 07:19 Blood - Blood Anaerobic Blood Culture - Final No growth in 5 days. 01/05/24 06:12 Clean Catch Urine [place] Count - Final >100,000 CFU/ML. 01/05/24 06:12 Clean Catch Urine - Final MIXED HOIWE. Assessment/ Plan: Nephrology No dyspnea No chest pain No acute events overnight Vitals, medications, blood work and imaging reviewed in the chart General: Oriented, Cooperative HEENT: Atraumatic Neck: Supple Respiratory: Clear to auscultation bilaterally Cardiovascular: Hip edema trace, Irregular heart rate/rhythm Gastrointestinal: Non-distended, Tenderness, Guarding Musculoskeletal: No clubbing, No contractures Integumentary: No rashes, No cyanosis Neurological: Normal speech Laboratory Data (last 24 hrs) 01/05/24 01/05/24 05:39 05:39 WBC 17.30 H Hgb 13.5 Hct 41.7 Plt Count 216 Sodium 133 L Potassium 4.5 BUN 81 H Creatinine 8.09 H Glucose 90 Total Bilirubin 3.9 H AST 65 H ALT 29 Alkaline Phosphatase 55 Lipase 11 L Imagings Data: EXAM DESCRIPTION: CT - Abdomen Pelvis Wo Contrast - 01/05/2024 6:53 am CLINICAL HISTORY: Abdominal pain. ABD PAIN COMPARISON: <Comparisons> TECHNIQUE: CT imaging of the abdomen and pelvis was performed without contrast. Solid organ, bowel and vascular assessment is limited due to lack of IV and oral contrast. All CT scans are performed using dose optimization technique as appropriate and may include automated exposure control or mA/KV adjustment according to patient size. FINDINGS: The lower lung shankar are clear. The liver, spleen, pancreas, adrenal glands and kidneys are within normal limits for a limited non-contrast examination.Cholecystectomy. No bowel obstruction, free air, free fluid or abscess. The colon appears mildly fluid distended throughout its course. Wall thickening is present throughout the colon is mild. No evidence pneumatosis coli. The appendix is normal. Moderate fat containing umbilical. Moderate lower lumbar degenerative changes. IMPRESSION: [id number] pancolitis. A limited non-contrast examination was performed as detailed. Conclusions/Impression: Stage III PROSPER in the setting of hypotension, hypovolemia, aleve and losartan may be prerenal azotemia complicated by ATN Proteinuria -No NSAIDs -Continue IVF Hyperkalemia -Monitor level Hypomagnesemia -Continue oral mag HTN Afib -Continue Coreg Hypoalbuminemia -Encourage nutrition Anemia in chronic illness -Monitor H&H Sepsis C.diff PanColitis Acute on Chronic Cystitis -Continue Abx Hospitalist note reviewed
[2024-01-17 04:14] LABS: Absolute Basophils 0.1 K/uL (0-0.5); Absolute Eosinophils 0.4 K/uL (0-0.5); Absolute Lymphocytes (CBC) 1.8 K/uL (0.7-4.9); Absolute Monocytes 0.7 K/uL (0.1-1.3); Absolute Neutrophil 4.2 K/uL (1.8-8.0); Basophils % 1.3 % (0-1.3); Eosinophils % 5.7 % (0-4.4); Hematocrit 30.3 % (36.0-45.0); Hemoglobin 9.8 g/dL (12.0-15.0); Lymphocytes % 24.8 % (15.3-44.8); MCH 29.9 pg (27.0-35.0); MCHC 32.4 g/dL (32.0-36.0); MCV 92.4 fL (80-100); MPV 7.4 fL (7.6-11.3); Monocytes % 9.7 % (3.3-12.3); Neutrophils % 58.5 % (41.7-73.7); Nucleated Red Blood Cells % 0.1 % (0-0); Platelets 244 thou/uL (152-406); RBC Red Blood Cell Count 3.28 M/uL (3.86-4.86); Red Cell Distribution Width 14.2 % (12.1-15.2)
[2024-01-17 04:23] LABS: Anion Gap 6.5 mEq/L (5.0-15.0); Potassium 5.5 mEq/L (3.5-5.1)
[2024-01-17] MEDS: carvediloL 3.125 MG TAB PO SCH (08:59)
[2024-01-17] MEDS: SOD POLYSTYREN SUL 15 GM/60 ML UCUP PO ONE (09:08)
[2024-01-17 09:41] VITALS: BP 136/61
[2024-01-17 10:26] VITALS: O2SAT 99
[2024-01-17 10:27] VITALS: TEMP 97.4
== END 2024-01-17 10:31 | disposition home health service (06) | DRG 871 ==
LOC: ER 05:14 → ERHOLD 08:59 → 3RD-ICU 14:32 → 4TH 01-13 09:45
PROVIDERS: ADMIT Internal Medicine; ATTEND Internal Medicine
PROC: 02HV33Z Insertion of Infusion Device into Superior Vena Cava, Percutaneous Approach (ICD-10-PCS; principal; 2024-01-05)
PROC: 3E043XZ Introduction of Vasopressor into Central Vein, Percutaneous Approach (ICD-10-PCS; 2024-01-05)
PROC: 3E0436Z Introduction of Nutritional Substance into Central Vein, Percutaneous Approach (ICD-10-PCS; 2024-01-12)
PROC: 0T9B70Z Drainage of Bladder with Drainage Device, Via Natural or Artificial Opening (ICD-10-PCS; 2024-01-12)
DX: A41.9 Sepsis, unspecified organism (principal); G93.41 Metabolic encephalopathy; N17.0 Acute kidney failure with tubular necrosis; R57.1 Hypovolemic shock; R65.21 Severe sepsis with septic shock; E44.1 Mild protein-calorie malnutrition; E87.1 Hypo-osmolality and hyponatremia; E87.20 Acidosis, unspecified; A04.72 Enterocolitis due to Clostridium difficile, not specified as recurrent; N30.00 Acute cystitis without hematuria; K56.7 Ileus, unspecified; E87.0 Hyperosmolality and hypernatremia; I10 Essential (primary) hypertension; E86.0 Dehydration; I48.91 Unspecified atrial fibrillation; E78.00 Pure hypercholesterolemia, unspecified; G24.01 Drug induced subacute dyskinesia; M17.12 Unilateral primary osteoarthritis, left knee; E88.09 Other disorders of plasma-protein metabolism, not elsewhere classified; D75.829 Heparin-induced thrombocytopenia, unspecified; T45.515A Adverse effect of anticoagulants, initial encounter; R79.89 Other specified abnormal findings of blood chemistry; Z78.1 Physical restraint status; Z88.5 Allergy status to narcotic agent; Z98.51 Tubal ligation status; Z68.32 Body mass index [BMI] 32.0-32.9, adult; Z28.310 Unvaccinated for COVID-19; Z79.899 Other long term (current) drug therapy; Z90.710 Acquired absence of both cervix and uterus
CPT/HCPCS: 36415; 36569; 71045; 74018; 74176; 80048; 80053; 80076; 81001; 82043; 82435; 82550; 82570; 83605; 83690; 83735; 84100; 84132; 84145; 84156; 84300; 84439; 84443; 84484; 84550; 85025; 85027; 86140; 87040; 87086; 87088; 87324; 93005; 97110; 97116; 97161; 97530; 99285; J0282; J0696; J1160; J1630; J1644; J1652; J2405; J3475; J3480; J7030; J7060; J7120; J7799; J8499

== ENCOUNTER 2024-05-29 20:57 | Inpatient (IN) | payer OTHER ==
[2024-05-29 22:03] LABS: Specific Gravity < 1.005 (1.005-1.030); Urine Bilirubin NEGATIVE (Negative); Urine Blood 3+ (OVER) (Negative); Urine Clarity Extremely Turbid (Clear); Urine Color Colorless (Yellow); Urine Glucose NEGATIVE (Negative); Urine Ketones NEGATIVE (Negative); Urine Nitrite NEGATIVE (Negative); Urine Protein TRACE (Negative); Urine Urobilinogen Normal (Normal); Urine pH 7.5 (5.0-7.0)
[2024-05-29 22:04] LABS: Specific Gravity < 1.005 (1.005-1.030); Sqamous Epithelial None Seen /HPF (None Seen); Urine Bacteria <20 /HPF (<20); Urine Bacteria None Seen /HPF (<20); Urine Bilirubin NEGATIVE (Negative); Urine Blood 3+ (Negative); Urine Clarity Extremely Turbid (Clear); Urine Color Colorless (Yellow); Urine Culture Reflex Order REFLEXED; Urine Glucose NEGATIVE (Negative); Urine Ketones NEGATIVE (Negative); Urine Micro Reflex YN NO BILL MICROSCOPIC; Urine Microscopic Reflex YN ORDER UMIC; Urine Nitrite NEGATIVE (Negative); Urine Protein TRACE (Negative); Urine RBC <5 /HPF (None Seen); Urine Urobilinogen Normal (Normal); Urine WBC 20-50 /HPF (<5)
[2024-05-29 22:17] LABS: Absolute Eosinophils 0.2 K/uL (0-0.5); Absolute Lymphocytes (CBC) 1.3 K/uL (0.7-4.9); Absolute Neutrophil 5.5 K/uL (1.8-8.0); Basophils % 0.4 % (0-1.3); Eosinophils % 2.3 % (0-4.4); Hematocrit 35.5 % (36.0-45.0); Hemoglobin 11.6 g/dL (12.0-15.0); Lymphocytes % 16.5 % (15.3-44.8); MCH 29.1 pg (27.0-35.0); MCHC 32.8 g/dL (32.0-36.0); MCV 88.5 fL (80-100); MPV 6.8 fL (7.6-11.3); Monocytes % 12.4 % (3.3-12.3); Neutrophils % 68.4 % (41.7-73.7); Platelets 202 thou/uL (152-406); RBC Red Blood Cell Count 4.01 M/uL (3.86-4.86); Red Cell Distribution Width 14.1 % (12.1-15.2)
[2024-05-29 22:34] LABS: Albumin 2.9 g/dL (3.4-5.0); Albumin/Globulin Ratio 0.6 (1.1-1.8); Anion Gap 11.2 mEq/L (5.0-15.0); Globulin 5.1 g/dL (2.3-3.5); Potassium 4.2 mEq/L (3.5-5.1)
[2024-05-30] MEDS ORDERED: NA CHLORIDE 0.9% 1,000 ML ONE ×2 (00:48→02:04)
[2024-05-30] MEDS ORDERED: ONDANSETRON 4 MG/2 ML VIAL ONE (00:48)
[2024-05-30] MEDS ORDERED: Meropenem 1000 MG/VIAL IV ONE (02:04)
[2024-05-30] MEDS ORDERED: NA CHLORIDE 0.9% 100 ML ONE (02:04)
--- NOTE | 2024-05-30 02:24 | ER ---
Nurse's Notes [facility] Name: Jovana Tyson Age: 68 yrs Sex: Female : 1955 Arrival Date: 05/29/2024 Time: 20:57 Bed 19 Private MD: Diagnosis: UTI/ Urinary tract infection, site not specified;Acute cystitis with hematuria;Hydronephrosis with ureteral stricture, not elsewhere classified-moderate left hydro Presentation: 05/29 21:19 Chief complaint:. Chief complaint: Patient states: passing clots, not sure if it is tm6 from urine or a vaginal bleed. Started on Tuesday. Has chronic UTIs. Painful urination, feels like stabbing. Coronavirus screen: Vaccine status: Patient reports being unvaccinated. Ebola Screen: Patient negative for fever greater than or equal to 101.5 degrees Fahrenheit, and additional compatible Ebola Virus Disease symptoms Patient denies exposure to infectious person. Patient denies travel to an Ebola-affected area in the 21 days before illness onset. No symptoms or risks identified at this time. Initial Sepsis Screen: Does the patient meet any 2 criteria? No. Patient's initial sepsis screen is negative. Does the patient have a suspected source of infection? No. Patient's initial sepsis screen is negative. Risk Assessment: Do you want to hurt yourself or someone else? Patient reports no desire to harm self or others. Onset of symptoms was May 25, 2024. 21:19 Method Of Arrival: Wheelchair tm6 21:19 Acuity: VANE 3 tm6 Triage Assessment: 21:21 General: Appears in no apparent distress. Behavior is calm, cooperative. Pain: Denies tm6 pain. EENT: No signs and/or symptoms were reported regarding the EENT system. Neuro: Level of Consciousness is awake, alert, obeys commands, Oriented to person, place, time, situation. Cardiovascular: Patient's skin is warm and dry. Respiratory: Airway is patent Respiratory effort is even, unlabored, Respiratory pattern is regular, symmetrical. GI: No signs and/or symptoms were reported involving the gastrointestinal system. Abdomen is round non-distended. : Reports burning with urination, pain with urination vaginal bleeding that is bright red, with clots. Derm: No signs and/or symptoms reported regarding the dermatologic system. Musculoskeletal: No signs and/or symptoms reported regarding the musculoskeletal system. Historical: - Allergies: 21:21 Codeine; tm6 - PMHx: 21:21 Hypercholesterolemia; Hypertensive disorder; Non-Hodgkins Lymphona; overactive bladder; tm6 - PSHx: 21:21 tubal ligation; bladder stimulator; tm6 - Immunization history:: Client reports having NOT received the Covid vaccine. - Infectious Disease History:: Denies. - Social history:: Smoking status: Patient denies any tobacco usage or history of. Patient/guardian denies using alcohol. - Family history:: not pertinent. Screenin/21 00:[address] [facility] ED Fall Risk Assessment (Adult) History of falling in the last 3 months, cp4 including since admission No falls in past 3 months (0 pts) Confusion or Disorientation No (0 pts) Intoxicated or Sedated No (0 pts) Impaired Gait No (0 pts) Mobility Assist Device Used No (0 pt) Altered Elimination No (0 pt) Score/Fall Risk Level 0 - 2 = Low Risk Oriented to surroundings, Maintained a safe environment, Assessed \T\ reinforced patient's understanding of fall precautions, Hourly rounding (assess needs \T\ fall precautionary measures) done. Abuse screen: Denies threats or abuse. Nutritional screening: No deficits noted. Tuberculosis screening: No symptoms or risk factors identified. Assessment: 00:56 General: Appears in no apparent distress. comfortable, Behavior is calm, cooperative, cp4 appropriate for age. Pain: Complains of pain in abdomen Pain does not radiate. Neuro: Level of Consciousness is awake, alert, obeys commands, Oriented to person, place, time, situation. Cardiovascular: No deficits noted. Respiratory: Airway is patent Respiratory effort is even, unlabored. GI: No signs and/or symptoms were reported involving the gastrointestinal system. : Reports burning with urination, cramping. : Reports vaginal bleeding that is with clots. EENT: No signs and/or symptoms were reported regarding the EENT system. Derm: No signs and/or symptoms reported regarding the dermatologic system. Musculoskeletal: No signs and/or symptoms reported regarding the musculoskeletal system. Vital Signs: 05/29 21:18 BP 132 / 63; Pulse 93; Resp 19; Temp 100(O); Pulse Ox 96% on R/A; Weight 83.01 kg; tm6 Height 5 ft. 5 in. ; Pain 0/10; 05/30 00:45 BP 132 / 88; Pulse 92; Resp 18; Pulse Ox 100% ; cp4 01:30 BP 129 / 57; Pulse 83; Resp 18; Pulse Ox 97% ; cp4 02:30 BP 121 / 61; Pulse 87; Resp 18; Pulse Ox 100% ; cp4 03:30 BP 127 / 73; Pulse 89; Resp 18; Pulse Ox 100% ; cp4 05/29 21:18 Body Mass Index 30.45 (83.01 kg, 165.1 cm) tm6 05/29 21:18 Pain Scale: Adult tm6 ED Course: 05/29 21:02 Patient arrived in ED. im 21:21 Triage completed. tm6 21:21 Arm band placed on right wrist. tm6 21:34 Rajeev Duckworth MD is Attending Physician. anju 21:55 Urinalysis w/ reflexes Sent. tm6 22:10 CBC with Diff Sent. vk 22:10 CMP Sent. vk 22:11 Lipase Sent. vk 22:11 Inserted saline lock: 22 gauge in right forearm, using aseptic technique. Blood vk collected. Flushed with 10 mL NS. 22:11 Initial lab(s) drawn, by me, sent to lab. vk 23:07 Abdomen In Process Unspecified. EDMS 05/30 00:56 Bed in low position. Call light in reach. Side rails up X2. cp4 00:56 No provider procedures requiring assistance completed. cp4 01:19 Fatoumata Bowens is Primary Nurse. cp4 02:21 Earl Almanza MD is Hospitalizing Provider. anju 02:32 Ward cath inserted, using sterile technique, 16 Fr., by me, balloon inflated, to cp4 gravity drainage. 04:38 Provided Education on: admission. cp4 04:38 Patient admitted, IV remains in place. cp4 09:18 Tish Chaudhry, RN is Primary Nurse. ph 09:25 Primary Nurse role handed off by Tish Chaudhry, IOANA bp 09:25 Bran Villanueva, RN is Primary Nurse. bp 13:00 CM met with patient at bedside in the ED exam room. Patient identified by name and . ane Demographic sheet confirmed. Mrs. Tyson states she lives at home with her Greg in a single story home. She reports that prior to admission, she performs ADLs independently and uses a walker most of the time and occasionally a wheelchair if extra tired. No HH, home oxygen or other medical services at this time. Her preferred plan is to return home upon discharge. She states Greg will transport her home upon discharge. CM team will continue to follow and coordinate care. Administered Medications: 00:55 Drug: NS 0.9% IV 1000 ml IV at 1 bolus Per protocol; 1000 mL bolus Route: IV; Rate: 1 cp4 bolus; Site: right antecubital; 12:18 Follow up: IV Status: Completed infusion; IV Intake: 1000ml bp 00:56 Not Given (Patient Refused): ondansetron 4 mg IVP once; over 2 minutes cp4 02:19 Drug: NS 0.9% IV 1000 ml IV at 125 ml/hr continuous Route: IV; Rate: 125 ml/hr; Site: cp4 right antecubital; 04:39 Follow up: IV Status: Infusion continued upon admission cp4 02:19 Drug: Meropenem IV 1 grams IV at per protocol once; (mix in NS 100 mL) Route: IV; Rate: cp4 per protocol; Site: right antecubital; 03:20 Follow up: Response: No adverse reaction; IV Status: Completed infusion cp4 Medication: 00:56 VIS not applicable for this client. cp4 Intake: 12:18 IV: 1000ml; Total: 1000ml. bp Outcome: 02:23 Decision to Hospitalize by Provider. anju 04:38 Admitted to ER Hold. Please see [facility] for further documentation. cp4 04:38 Condition: stable 04:38 Instructed on the need for admit, 16:29 Patient left the ED. bp Signatures: Dispatcher [employer] EDRajeev Aguirre MD MD cha Hall, Patricia, RN RN Bran Kim RN RN bp Mendoza, Itzel im Potter, Christina cp4 Sri Allen RN RN tm6 Kruse, Vivian vk Elliott, Andie, RN RN ane
--- NOTE | 2024-05-30 02:24 | EDPHYS ---
Physician Documentation [facility] Name: Jovana Tyson Age: 68 yrs Sex: Female : 1955 Arrival Date: 05/29/2024 Time: 20:57 Bed 19 Private MD: ED Physician Rajeev Duckworth HPI: 05/30 01:12 This 68 yrs old Female presents to ER via Wheelchair with complaints of anju Vaginal Bleeding. 01:12 The patient presents with urinary symptoms, hematuria. Onset: The symptoms/episode anju began/occurred 2 day(s) ago. Modifying factors: The symptoms are alleviated by nothing, the symptoms are aggravated by nothing. Associated signs and symptoms: The patient has no apparent associated signs or symptoms, Pertinent positives: cramping. Severity of symptoms: At their worst the symptoms were moderate, in the emergency department the symptoms are unchanged. The patient is not sexually active. The patient has not experienced similar symptoms in the past. Historical: - Allergies: 05/29 21:21 Codeine; tm6 - PMHx: 21:21 Hypercholesterolemia; Hypertensive disorder; Non-Hodgkins Lymphona; overactive bladder; tm6 - PSHx: 21:21 tubal ligation; bladder stimulator; tm6 - Immunization history:: Client reports having NOT received the Covid vaccine. - Infectious Disease History:: Denies. - Social history:: Smoking status: Patient denies any tobacco usage or history of. Patient/guardian denies using alcohol. - Family history:: not pertinent. ROS: 05/30 01:12 Constitutional: Negative for fever, chills, and weight loss, Eyes: Negative for injury, anju pain, redness, and discharge, ENT: Negative for injury, pain, and discharge, Neck: Negative for injury, pain, and swelling, Cardiovascular: Negative for chest pain, palpitations, and edema, Respiratory: Negative for shortness of breath, cough, wheezing, and pleuritic chest pain, Back: Negative for injury and pain, : Negative for injury, bleeding, discharge, and swelling, MS/Extremity: Negative for injury and deformity, Skin: Negative for injury, rash, and discoloration, Neuro: Negative for headache, weakness, numbness, tingling, and seizure, Psych: Negative for depression, anxiety, suicide ideation, homicidal ideation, and hallucinations, Allergy/Immunology: Negative for hives, rash, and allergies, Endocrine: Negative for neck swelling, polydipsia, polyuria, polyphagia, and marked weight changes, Hematologic/Lymphatic: Negative for swollen nodes, abnormal bleeding, and unusual bruising, Abdomen/GI: Positive for abdominal pain, of the suprapubic area, right lower quadrant and left lower quadrant, Exam: 01:12 Constitutional: This is a well developed, well nourished patient who is awake, alert, anju and in no acute distress. Head/Face: Normocephalic, atraumatic. Eyes: Pupils equal round and reactive to light, extra-ocular motions intact. Lids and lashes normal. Conjunctiva and sclera are non-icteric and not injected. Cornea within normal limits. Periorbital areas with no swelling, redness, or edema. ENT: Nares patent. No nasal discharge, no septal abnormalities noted. Tympanic membranes are normal and external auditory canals are clear. Oropharynx with no redness, swelling, or masses, exudates, or evidence of obstruction, uvula midline. Mucous membranes moist. Neck: Trachea midline, no thyromegaly or masses palpated, and no cervical lymphadenopathy. Supple, full range of motion without nuchal rigidity, or vertebral point tenderness. No Meningismus. Chest/axilla: Normal chest wall appearance and motion. Nontender with no deformity. No lesions are appreciated. Cardiovascular: Regular rate and rhythm with a normal S1 and S2. No gallops, murmurs, or rubs. Normal PMI, no JVD. No pulse deficits. Respiratory: Lungs have equal breath sounds bilaterally, clear to auscultation and percussion. No rales, rhonchi or wheezes noted. No increased work of breathing, no retractions or nasal flaring. Back: No spinal tenderness. No costovertebral tenderness. Full range of motion. Female : Normal external genitalia. Skin: Warm, dry with normal turgor. Normal color with no rashes, no lesions, and no evidence of cellulitis. MS/ Extremity: Pulses equal, no cyanosis. Neurovascular intact. Full, normal range of motion. Neuro: Awake and alert, GCS 15, oriented to person, place, time, and situation. Cranial nerves II-XII grossly intact. Motor strength 5/5 in all extremities. Sensory grossly intact. Cerebellar exam normal. Normal gait. Psych: Awake, alert, with orientation to person, place and time. Behavior, mood, and affect are within normal limits. 01:12 Abdomen/GI: Inspection: distension, Bowel sounds: active, all quadrants, Palpation: mild abdominal tenderness, in the suprapubic area, right lower quadrant and left lower quadrant, Liver: no appreciated palpable abnormalities, Hernia: not appreciated, 02:23 Abdomen/GI: Rectal exam: is unremarkable, rectal tone normal, hemorrhoid(s), are not anju appreciated, mass, is not appreciated, swelling, is not appreciated, tenderness, is not appreciated, fecal impaction, is not appreciated, Vital Signs: 05/29 21:18 BP 132 / 63; Pulse 93; Resp 19; Temp 100(O); Pulse Ox 96% on R/A; Weight 83.01 kg; tm6 Height 5 ft. 5 in. ; Pain 0/10; 05/30 00:45 BP 132 / 88; Pulse 92; Resp 18; Pulse Ox 100% ; cp4 01:30 BP 129 / 57; Pulse 83; Resp 18; Pulse Ox 97% ; cp4 02:30 BP 121 / 61; Pulse 87; Resp 18; Pulse Ox 100% ; cp4 03:30 BP 127 / 73; Pulse 89; Resp 18; Pulse Ox 100% ; cp4 05/29 21:18 Body Mass Index 30.45 (83.01 kg, 165.1 cm) tm6 05/29 21:18 Pain Scale: Adult tm6 MDM: 05/29 21:34 Patient medically screened. anju 05/30 01:15 Differential diagnosis: kidney stone, nonspecific abdominal pain, urinary tract anju infection. Data reviewed: vital signs, nurses notes, lab test result(s), radiologic studies. Consideration of Admission/Observation Patient was admitted/placed on observation. Escalation of care including admission/observation considered. I considered the following discharge prescriptions or medication management in the emergency department Medications were administered in the Emergency Department. See MAR. Independent interpretation of the following test(s) in the Emergency Department CT Scan: My interpretation is ct abd pelvis. Test considered but Not performed: Ultrasound no abd usg. Historians other than the Patient: Daughter/Son: son well informed. Care significantly affected by the following chronic conditions: Hypertension, Obesity, high cholesterol, nhl, overactive bladder. 05/29 21:25 Order name: UAM; Complete Time: 01:11 sb4 05/29 21:34 Order name: CBC with Diff; Complete Time: 01:11 anju 05/29 21:34 Order name: CMP; Complete Time: 01:11 anju 05/29 21:34 Order name: Lipase; Complete Time: 01:11 anju 05/29 21:34 Order name: Urinalysis w/ reflexes; Complete Time: 01:11 anju 05/29 22:08 Order name: Urine Culture EDNY 05/30 02:37 Order name: Basic Metabolic Panel EDNY 05/30 02:37 Order name: Basic Metabolic Panel EDNY 05/30 02:37 Order name: CBC with Automated Diff EDMS 05/30 02:37 Order name: CBC with Automated Diff EDNY 05/30 02:37 Order name: Lipase EDNY 05/30 02:37 Order name: Lipase EDNY 05/30 02:37 Order name: Liver (Hepatic) Function EDNY 05/30 02:37 Order name: Liver (Hepatic) Function EDNY 05/29 22:50 Order name: Abdomen EDNY 05/30 02:32 Order name: CONS Physician Consult EDNY 05/29 21:34 Order name: IV Saline Lock; Complete Time: 22:10 [facility] 05/29 21:34 Order name: Labs collected and sent; Complete Time: 22:12 [facility] 05/30 02:31 Order name: Ward; Complete Time: 02:31 cp4 Administered Medications: 00:55 Drug: NS 0.9% IV 1000 ml IV at 1 bolus Per protocol; 1000 mL bolus Route: IV; Rate: 1 cp4 bolus; Site: right antecubital; 12:18 Follow up: IV Status: Completed infusion; IV Intake: 1000ml bp 00:56 Not Given (Patient Refused): ondansetron 4 mg IVP once; over 2 minutes cp4 02:19 Drug: NS 0.9% IV 1000 ml IV at 125 ml/hr continuous Route: IV; Rate: 125 ml/hr; Site: cp4 right antecubital; 04:39 Follow up: IV Status: Infusion continued upon admission cp4 02:19 Drug: Meropenem IV 1 grams IV at per protocol once; (mix in NS 100 mL) Route: IV; Rate: cp4 per protocol; Site: right antecubital; 03:20 Follow up: Response: No adverse reaction; IV Status: Completed infusion cp4 Disposition Summary: 05/30/24 02:23 Hospitalization Ordered Notes: Hospitalization Status: Inpatient Admission anju Provider: Earl Almanza cha Condition: Stable anju Problem: new anju Symptoms: have improved anju Bed/Room Type: Standard anju Location: Telemetry/MedSurg (Inpatient)(05/30/24 15:18) bd Room Assignment: 210(05/30/24 15:18) bd Diagnosis - UTI/ Urinary tract infection, site not specified anju - Acute cystitis with hematuria anju - Hydronephrosis with ureteral stricture, not elsewhere classified - moderate left anju hydro Forms: - Medication Reconciliation Form anju - SBAR form anju - Leadership Thank You Letter anju Signatures: Dispatcher [employer] EDMS Catie Agudelo Corey, MD MD cha Garcia, Cindy, RN RN Fatoumata Childers cp4 Sri Allen RN RN Bran Bagley RN bp Corrections: (The following items were deleted from the chart) 05/29 22:50 21:35 Abdomen Pelvis W Con+CT.RAD.BRZ ordered. EDNY EDNY 05/30 02:48 02:23 Telemetry/MedSurg (Inpatient) anju cg 02:48 02:23 anju cg 15:18 02:48 [facility] ER HOLD cg bd 15:18 02:48 ERHOLD- cg bd
[2024-05-30] MEDS ORDERED: ACETAMINOPHEN 325 MG TABLET PO PRN (02:31)
[2024-05-30] MEDS ORDERED: ONDANSETRON 4 MG/2 ML VIAL IV PRN (02:31)
[2024-05-30] MEDS ORDERED: FENTANYL CITR 100 MCG/2 ML IV PRN (02:34)
[2024-05-30] MEDS: NA CHLORIDE 0.9% 1,000 ML IV SCH (02:59)
[2024-05-30 04:10] VITALS: BMI 30.7
[2024-05-30] MEDS ORDERED: FAMOTIDINE 20 MG/2 ML VIAL IV SCH (09:00)
[2024-05-30] MEDS ORDERED: Meropenem 1,000 MG in NA CHLORIDE 0.9% 100 ML IV SCH (09:00)
--- NOTE | 2024-05-30 17:29 | RAD REPORT ---
EXAM DESCRIPTION: CT - Abdomen Pelvis Wo Contrast - 05/30/2024 6:30 am DATE: 05/29/2024 9:34 PM CDT CLINICAL HISTORY: 68-year-old female with vaginal bleeding. COMPARISON: CT of the abdomen and pelvis 01/05/2024 TECHNIQUE: Volumetric CT of the abdomen and pelvis acquired without the intravenous administration o f contrast, limiting evaluation. Axial, coronal and sagittal images are provided. The study was perfo rmed using dose reduction techniques including automated exposure control and/or adjustment of the MA and/or KV according to patient size, and/or iterative reconstruction techniques. FINDINGS: Silver Steward/Lines, tubes and hardware: Post cholecystectomy clips within gallbladder fossa. Righ t presacral neurostimulator lead. Lower thorax: Minimal bibasilar subsegmental atelectasis and/or scarring. No consolidation or pleural effusion . Heart is borderline enlarged with partially visualized atherosclerotic coronary artery ca lcifications, including LAD. Liver: No hepatic lesion on the unenhanced scan. Right lobe of the liver measures 17.1 cm in CC dimen shavonne Biliary tree: No intra- or extrahepatic bile duct dilation. Gallbladder: Status post cholecystectomy. Pancreas: Redemonstrated 1.1 cm pancreatic tail nonspecific fluid attenuation cystic lesion. This m ay represent pancreatic pseudocyst or IPMN. No peripancreatic inflammation. Spleen: No splenic lesion. Spleen measures 12.7 cm in CC dimension. Adrenals: No adrenal gland lesion. Kidneys/ureters/bladder: Interval development of moderate left hydroureteronephrosis and very mild ri ght ureteropelvicaliectasis. No urolithiasis. Mild left perinephric and periureteral/retroperitoneal edematous and/or inflammatory stranding. Cannot exclude pyelonephritis on the unenhanced scan. Mild n onspecific circumferential urinary bladder mural thickening, with left lateral bladder nonspecific 3. 4 x 0.8 cm (AP, transverse on image 74, series 201) curvilinear region of increased attenuation with a Hounsfield unit of 45. This may be due to intravesical blood products and/or mass lesion. Correlati on with urinalysis and cystoscopy suggested. 3.5 cm exophytic right upper pole simple appearing renal cyst. 1.6 image right upper pole renal cyst, with minimal peripheral mural increased attenuation, wh ich may relate to subtle calcification, not well characterized on the unenhanced scan. Reproductive organs: Uterus in situ. Gastrointestinal tract: Lower esophagus/stomach/small bowel: Tiny hiatal hernia. No small bowel obstruction. Colon: Mild colonic diverticulosis with moderate retained colonic stool. Appendix: Normal caliber appendix. Peritoneum, mesentery and retroperitoneum: No free air, ascites or loculated fluid. Lymph nodes: No pathologic adenopathy based on size criteria. Vasculature: Aorta and branches: Atherosclerotic mild vascular calcifications. Aorta has a normal diameter. IVC and veins: Subcentimeter calcified pelvic phleboliths. Bones: Degenerative changes, including mild to moderate multilevel spondylosis. 7 mm grade 1 anteroli sthesis of L4 with respect L5, with marked bilateral facet arthrosis at this level. Bilateral hip and SI joint osteoarthrosis. Diffuse osteopenia. Soft tissues: Redemonstrated right flank/gluteal region subcutaneous tissue generator with contiguous lead extending into the right presacral region. Small umbilical/periumbilical ventral hernia contain ing adipose tissue. IMPRESSION: 1. Interval development of moderate left hydroureteronephrosis down to the level of th ick-walled urinary bladder. There is nonspecific left intravesical curvilinear region of increased at tenuation, which may represent intravesical blood products and/or mass lesion. Correlation with urina lysis and cystoscopy suggested to evaluate for urinary tract infection and mass, respectively. 2. Colonic diverticulosis with moderate retained colonic stool. 3. Redemonstrated 1.1 cm pancreatic tail cystic lesion, which may represent pseudocyst versus intra ductal papillary mucinous neoplasm nonemergent pancreatic protocol CT and/or MRI of the pancreas and MRCP suggested per the [place] guidelines. 4. Status post cholecystectomy. 5. Additional incidental findings as discussed. Electronically signed by: Bg Cho MD 05/29/2024 11:44 PM CDT Due to temporary technical issues with the PACS/Fluency reporting system, reports are being signed by the in house radiologists without review as a courtesy to insure prompt reporting. The interpreting radiologist is fully responsible for the content of the report.
--- NOTE | 2024-05-30 21:02 | P.CNS ---
Date of Consult: 05/30/24 Reason for Consult: Gross hematuria Requesting Physician: Earl Almanza V Chief Complaint: Pelvic pain and gross hematuria History of Present Illness: 68-year-old woman with hypertension, asthma, presumptive neuropathy, GERD and over 3-year history of pelvic pain and recurrent UTIs presents admitted via the emergency department because of gross hematuria. This began 2 days ago sporadic and intermittently, but they brought the patient to the emergency department last night when after sleeping in a chair for a good part of the evening, she got up and there was lots of blood in the pad that she uses beneath where she sleeps. She uses of the pads because she has had a significant history of overactive bladder with detrusor instability that has failed multiple attempts at presumably first and second line therapies, and she had an InterStim placed by Dr. Ervin in November 2023. Additionally, she has received multiple courses of antimicrobial, apparently most recently last week, and sounds like she was even referred to an infectious disease specialist in [place], Dr. Berkowitz, for additional treatment. 1 of these courses of treatment was apparently complicated by C. difficile colitis back in December 2023. Her symptoms over the years have included infraumbilical pain that radiates into her bilateral lower back/flank region associated with dysuria and urge incontinence. She denied any associated fever or chills, and she had no nausea or vomiting. She was asymptomatic otherwise and would have not come in except for the significant quantity of blood seen. Past medical history: Hypertension Past surgical history: Tubal ligation Allergies: Codeine Social history: Denies any history of smoking, chemical exposure, and pesticide exposure Family history: Denies any urologic malignancy Examination: Alert, awake, oriented No dyspnea or sign of respiratory distress Abdomen soft, nontender, no suprapubic tenderness Urethral Ward catheter in place draining dark tea colored urine. No lower extremity Homman sign 05/29/2024 WBC 8.1, hemoglobin 11.6, platelets 202, creatinine 1.70 with EGFR 32, AST mildly elevated at 40, UA micro 2+ leukocyte esterase, 20-50 WBCs per hpf, less than 5 RBCs per hpf, less than 20 bacteria 05/30/2024 CT abdomen and pelvis without contrast findings: Interval development of moderate left hydroureteronephrosis and very mild right ureteropelvocaliectasis. No ureteral calculus or renal calculus noted. Mild left perinephric and periureteral/retroperitoneal edematous and/or inflammatory stranding. Mild nonspecific circumferential urinary bladder mural thickening, with left bladder nonspecific 3.4 x 0.8 cm curvilinear region of increased attenuation with a Hounsfield unit of 45 which might be due to intravesical blood products or mass lesion. 3.5 cm exophytic right upper pole simple cyst. 1.6 cm right upper pole renal cyst with minimal peripheral mural increased attenuation potentially related to subtle calcification. Colonic diverticulosis with moderate retained colonic stool. Bladder irrigation procedure note: Since during my history taking the patient expressed a brief episode of what was apparently a bladder spasm associated with some suprapubic pain that radiated to her meatus, and given the gross hematuria noted, I recommended her bladder be irrigated to ensure no significant burden of clot potentially contributing to obstruction and irritation. As a result, I placed the catheter in a more dependent position so that it would drain appropriately, as it was essentially situated having to drain up pill with her pelvis being most dependent within the bed. I then cleansed the hub of the catheter and utilized a 60 cc catheter tip syringe and sterile saline to irrigate the bladder with approximately 300 cc and remove a small burden of old clot and some formed clot. Once the return of the irrigant was completely clear, with note that the patient's bladder only held around 100 cc and did so with significant pain on feeling, I then discontinued further bladder irrigation and placed the catheter back to gravity drainage. Assessment and recommendation: 68-year-old woman with hypertension, asthma, presumptive neuropathy, GERD and history of recurrent UTIs with refractory OAB LUTS and urge incontinence persistent despite InterStim implanted 11/2023, now with gross hematuria potentially secondary to cystitis, bladder lesion, bilateral hydronephrosis - left greater than right, and 1.6 cm right upper pole complex renal cyst. -Follow-up cultures taken on admission in the emergency department and adjust broad-spectrum antimicrobial therapy targeting Pseudomonas and other nosocomial organisms accordingly. Patient given a course of antimicrobial therapy within days of her presentation to the emergency department where a culture was taken. Consider Cefepime -Allow 4 to 5 days of resolution of presumptive inflammation/infection/cystitis with antimicrobial therapy, and then obtain renal ultrasound to assess for persistence of hydronephrosis. If the creatinine fails to improve toward her baseline, after 3 days, sooner intervention may be required. If persistence of the hydronephrosis or failure for her renal function to improve toward her baseline, operative evaluation via cystoscopy with attempted bilateral retrogrades and stent placement will be required. -Otherwise, outpatient cystoscopy recommended MATTHEW given the gross hematuria; however, inpatient cystoscopic evaluation will be merited also if progressive anemia becomes potentially transfusion requiring. -Subsequent IV contrast evaluation of the right complex renal cystic lesion will be required, and whether this is done via CT or MRI will depend on her baseline EGFR -If resolution of the hydronephrosis and gross hematuria occurs, patient could reasonably undergo a voiding trial where the catheter is removed promptly at 7 AM, and if she is unable to void with ease by 1 PM, the catheter should be reinserted. After she voids, bladder scan postvoid residual assessment should be made, and if her postvoid residual is greater than her voided volume, again, a catheter should be reinserted. Allergies codeine Adverse Reaction (Verified 12/10/22 07:45) heart palpitations Home medications list reviewed: Yes Home Medications: Gabapentin 300 mg PO BID 03/14/19 Sertraline HCl 50 mg PO DAILY 03/14/19 Fenofibrate [Tricor*] 145 mg PO DAILY 12/01/22 Montelukast [Singulair*] 10 mg PO DAILY 01/10/24 Solifenacin Succinate [Vesicare] 10 mg PO DAILY 01/10/24 carvediloL [Coreg*] 3.125 mg PO BIDWM #180 tab 01/17/24 Alendronate Sodium 70 mg PO DAILY 05/30/24 Dicyclomine [Bentyl] 10 mg PO BID 05/30/24 Famotidine 20 mg PO BID 05/30/24 - Past Medical/Surgical History Diabetic: No -: HTN -: NHL 2019 in remission -: Recurrent Cystitis/ Urinary Incontinence -: Left Knee OA -: Hysterectomy -: Bladder stimulatory 2022 - Social History Smoking Status: Never smoker Alcohol use: No CD- Drugs: No Caffeine use: No Physical Examination Temp Pulse Resp BP Pulse Ox 97.8 F 101 H 18 147/65 H 96 05/30/24 16:00 05/30/24 16:00 05/30/24 16:00 05/30/24 16:00 05/30/24 16:00 Laboratory Data (last 24 hrs) 05/29/24 05/29/24 22:08 22:08 WBC 8.10 Hgb 11.6 L Hct 35.5 L Plt Count 202 Sodium 141 Potassium 4.2 BUN 34 H Creatinine 1.70 H Glucose 117 H Total Bilirubin 1.0 AST 40 H ALT 18 Alkaline Phosphatase 38 L Lipase 50 - Problems (1) Gross hematuria Current Visit: Yes Status: Acute (2) Lesion of bladder Current Visit: Yes Status: Acute (3) Bilateral hydronephrosis Current Visit: Yes Status: Acute (4) OAB (overactive bladder) Current Visit: Yes Status: Acute (5) Urge incontinence Current Visit: Yes Status: Acute (6) Complex renal cyst Current Visit: Yes Status: Acute (7) Recurrent UTI Current Visit: Yes Status: Acute (8) Acute cystitis Current Visit: Yes Status: Acute Conclusions/Impression: see A&P in HPI Critical Care: No Time Spent Managing Pts care (In Minutes): 75
--- NOTE | 2024-05-30 21:29 | P.HP ---
Certification for Inpatient Patient admitted to: Inpatient With expected LOS: >2 Midnights Practitioner: I am a practitioner with admitting privileges, knowledge of patient current condition, hospital course, and medical plan of care. Services: Services provided to patient in accordance with Admission requirements found in Title 42 Section 412.3 of the Code of Federal Regulations Patient History Date of Service: 05/30/24 Reason for admission: Pelvic pain and gross hematuria History of Present Illness: MONCHO HAS HAD HISTORY OF RECURRENT UTI AND EVALUATIONS BY MULTIPLE DOCTORS INCLUDING UROGYNECOLOGIST DR. GALLO, UROLOIGSTS, MULTIPLE ORAL MEDS FOR INCONTIENCE WITH FAILURE TO CONTROL HER INFECTIONS. SHE WAS GIVEN DAILY ANTIBIOTIC BY UROLOGIST [place]. SHE HAD DEVELOPED SEVERE C DIFF COLITIS WITH SEPTIC SHOCK LAST ADMISSION. IT TOOK MULTIPLE MEDS INCLUDING VANCOMYCIN ORAL THAT DID NOT WORK. I GAVE HER PER RECTAL VANCOMYCIN THAT SHE COULD NOT RETAIN AND KEPT ON GETTING WORSE WITH SEPSIS. AT LAST WE TRIED GARZA CATHETER WITH BALOON INFLATION TO RETAIN THE ENEMA IN THE RECTUM AND SINCE THEN SHE IMPROVED AND SURVIVE. SINCE THEN SHE IS ON FLORASTOR DAILY FOR C DIFF PREVENTION. THIS ADMISSION SHE COMES WITH PAINLESS HEMATURIA. SHE WAS SEEN BY DR. RODRIGUEZ WHO MAY HAVE TO DO PROCEDURE AT A LATER DATE. SHE IS STARTED ON ANTIBIOITCS AND IV FLUIDS. Allergies codeine Adverse Reaction (Verified 12/10/22 07:45) heart palpitations Home medications list reviewed: Yes Home Medications: Gabapentin 300 mg PO BID 03/14/19 Sertraline HCl 50 mg PO DAILY 03/14/19 Fenofibrate [Tricor*] 145 mg PO DAILY 12/01/22 Montelukast [Singulair*] 10 mg PO DAILY 01/10/24 Solifenacin Succinate [Vesicare] 10 mg PO DAILY 01/10/24 carvediloL [Coreg*] 3.125 mg PO BIDWM #180 tab 01/17/24 Alendronate Sodium 70 mg PO DAILY 05/30/24 Dicyclomine [Bentyl] 10 mg PO BID 05/30/24 Famotidine 20 mg PO BID 05/30/24 - Past Medical/Surgical History Has patient received pneumonia vaccine in the past: Yes Diabetic: No -: HTN -: NHL 2019 in remission -: Recurrent Cystitis/ Urinary Incontinence -: Left Knee OA -: Hysterectomy -: Bladder stimulatory 2023 - Social History Smoking Status: Never smoker Alcohol use: No CD- Drugs: No Caffeine use: No Review of Systems 10-point ROS is otherwise unremarkable General: Weakness Physical Examination - Vital Signs Temperature: 99.4 F Blood Pressure: 150/56 Pulse: 100 Respirations: 17 Pulse Ox (%): 96 - Physical Exam General: Oriented x3, Mild distress HEENT: Atraumatic, PERRLA, Mucous membr. moist/pink, EOMI, Sclerae nonicteric Neck: Supple, 2+ carotid pulse no bruit, No LAD, Without JVD or thyroid abnormality Respiratory: Clear to auscultation bilaterally, Normal air movement Cardiovascular: Regular rate/rhythm, Normal S1 S2 Gastrointestinal: Normal bowel sounds, No tenderness Musculoskeletal: No tenderness Integumentary: No rashes Neurological: Normal gait, Normal speech, Normal strength at 5/5 x4 extr, Normal tone, Normal affect Lymphatics: No axilla or inguinal lymphadenopathy - Studies Laboratory Data (last 24 hrs) 05/29/24 05/29/24 22:08 22:08 WBC 8.10 Hgb 11.6 L Hct 35.5 L Plt Count 202 Sodium 141 Potassium 4.2 BUN 34 H Creatinine 1.70 H Glucose 117 H Total Bilirubin 1.0 AST 40 H ALT 18 Alkaline Phosphatase 38 L Lipase 50 Assessment and Plan - Problems (Diagnosis) (1) Hydronephrosis, left Current Visit: Yes Status: Acute (2) Acute cystitis Current Visit: Yes Status: Acute Plan: IV CEFEPIME STOP ROCEPHIN IV FLUIDS DETAILS OF PLANS BY DR RODRIGUEZ. MAY BE ABLE TO GO HOME ON ORAL ABX WITH CULTURE RESULTS. THERE IS ALWAYS ARISK OF C DIFF COLITIS. WILL DISCUSS WITH IN AM. Qualifiers: Hematuria presence: with hematuria Qualified Code(s): N30.01 - Acute cystitis with hematuria (3) Gross hematuria Current Visit: Yes Status: Acute Plan: REASON ABOVE MASS TO BE RULED OUT. - Advance Directives Does patient have a Living Will: No Does patient have a Durable POA for Healthcare: No
[2024-05-30] MEDS: NACHLORIDE 0.45% 1,000 ML IV SCH (22:30)
[2024-05-31] MEDS: carvediloL 3.125 MG TAB PO SCH (08:00)
[2024-05-31] MEDS ORDERED: CEFTRIAXONE 1,000 MG in NA CHLORIDE 0.9% 50 ML IVPB SCH (09:00)
[2024-05-31] MEDS: FAMOTIDINE 20 MG TAB PO SCH (10:31)
[2024-05-31] MEDS: FENOFIBRATE 160 MG TAB PO SCH (10:31)
[2024-05-31] MEDS: CEFEPIME 2 GM in NA CHLORIDE 0.9% 100 ML IV SCH (10:31)
[2024-05-31] MEDS: SERTRALINE HCL 50 MG TAB PO SCH (10:32)
[2024-05-31] MEDS: MONTELUKAST 10 MG TAB PO SCH (10:32)
[2024-05-31] MEDS: GABAPENTIN 300 MG CAP PO SCH (10:32)
--- NOTE | 2024-05-31 12:57 | P.PN ---
Subjective Date of Service: 05/31/24 Chief Complaint: Pelvic pain and gross hematuria Subjective: Improving SHE IS STABLE,HAS GARZA. NO DIARRHEA YET. Review of Systems 10-point ROS is otherwise unremarkable Physical Examination - Vital Signs Temperature: 97.2 F Blood Pressure: 115/60 Pulse: 79 Respirations: 18 Pulse Ox (%): 95 - Physical Exam General: Mild distress HEENT: Atraumatic, PERRLA, EOMI Neck: Supple, JVD not distended Respiratory: Clear to auscultation bilaterally, Normal air movement Cardiovascular: Regular rate/rhythm, Normal S1 S2 Gastrointestinal: Normal bowel sounds, No tenderness Musculoskeletal: No tenderness Integumentary: No rashes Neurological: Normal speech, Normal tone, Normal affect Lymphatics: No axilla or inguinal lymphadenopathy - Studies Medications List Reviewed: Yes Assessment And Plan - Current Problems (Diagnosis) (1) Hydronephrosis, left Current Visit: Yes Status: Acute (2) Acute cystitis Current Visit: Yes Status: Acute Plan: IV CEFEPIME STOP ROCEPHIN IV FLUIDS DETAILS OF PLANS BY DR RODRIGUEZ. MAY BE ABLE TO GO HOME ON ORAL ABX WITH CULTURE RESULTS. THERE IS ALWAYS ARISK OF C DIFF COLITIS. WILL DISCUSS WITH IN AM. CULTURE PENDING. CONT ABX. PROGNOSIS GUARDED. Qualifiers: Hematuria presence: with hematuria Qualified Code(s): N30.01 - Acute cystitis with hematuria (3) Gross hematuria Current Visit: Yes Status: Acute Plan: REASON ABOVE MASS TO BE RULED OUT.
[2024-06-01 08:40] LABS: Absolute Eosinophils 0.3 K/uL (0-0.5); Absolute Lymphocytes (CBC) 1.6 K/uL (0.7-4.9); Absolute Monocytes 0.8 K/uL (0.1-1.3); Absolute Neutrophil 5.7 K/uL (1.8-8.0); Basophils % 0.3 % (0-1.3); Hematocrit 31.7 % (36.0-45.0); Hemoglobin 10.5 g/dL (12.0-15.0); Lymphocytes % 18.9 % (15.3-44.8); MCH 28.9 pg (27.0-35.0); MCHC 33.1 g/dL (32.0-36.0); MCV 87.2 fL (80-100); MPV 6.8 fL (7.6-11.3); Monocytes % 9.5 % (3.3-12.3); Neutrophils % 67.3 % (41.7-73.7); Nucleated Red Blood Cells % 0.1 % (0-0); Platelets 233 thou/uL (152-406); RBC Red Blood Cell Count 3.64 M/uL (3.86-4.86); Red Cell Distribution Width 13.7 % (12.1-15.2)
[2024-06-01 08:56] LABS: Anion Gap 8.1 mEq/L (5.0-15.0); Potassium 4.1 mEq/L (3.5-5.1)
--- NOTE | 2024-06-01 09:22 | RAD REPORT ---
EXAM DESCRIPTION: US - Renal Ultrasound-Complete - 06/01/2024 9:05 am CLINICAL HISTORY: Abdominal pain chronic kidney disease COMPARISON: May 29, 2024 CT FINDINGS: The right kidney measures 11 cm with a normal echotexture. 3.4 centimeter right renal cyst . Additional smaller right renal cyst. The left kidney measures 11 cm with a normal echotexture. Bilateral extrarenal pelves. No hydronephrosis A Ward catheter is present within a collapsed bladder IMPRESSION: Hydronephrosis has resolved
[2024-06-01] MEDS: SIMETHICONE 80 MG CHEWABLE TAB PO SCH (22:38)
[2024-06-02 00:44] VITALS: O2SAT 99
[2024-06-02] MEDS ORDERED: SIMETHICONE 80 MG CHEWABLE TAB PO SCH (09:00)
[2024-06-02] MEDS: LACTOBACILLUS/ACIDOPHILUS TAB PO SCH (09:17)
--- NOTE | 2024-06-02 10:09 | P.DS ---
Admission Date: 05/30/24 Discharge Date: 06/02/24 Disposition: ROUTINE DISCHARGE Discharge Condition: FAIR Reason for Admission: Pelvic pain and gross hematuria - Problems (1) Hydronephrosis, left Current Visit: Yes Status: Acute (2) Acute cystitis Current Visit: Yes Status: Acute Qualifiers: Hematuria presence: with hematuria Qualified Code(s): N30.01 - Acute cystitis with hematuria (3) Gross hematuria Current Visit: Yes Status: Acute Brief History of Present Illness: MONCHO HAS HAD HISTORY OF RECURRENT UTI AND EVALUATIONS BY MULTIPLE DOCTORS INCLUDING UROGYNECOLOGIST DR. GALLO, UROLOIGSTS, MULTIPLE ORAL MEDS FOR INCONTIENCE WITH FAILURE TO CONTROL HER INFECTIONS. SHE WAS GIVEN DAILY ANTIBIOTIC BY UROLOGIST IN [place]. SHE HAD DEVELOPED SEVERE C DIFF COLITIS WITH SEPTIC SHOCK LAST ADMISSION. IT TOOK MULTIPLE MEDS INCLUDING VANCOMYCIN ORAL THAT DID NOT WORK. I GAVE HER PER RECTAL VANCOMYCIN THAT SHE COULD NOT RETAIN AND KEPT ON GETTING WORSE WITH SEPSIS. AT LAST WE TRIED GARZA CATHETER WITH BALOON INFLATION TO RETAIN THE ENEMA IN THE RECTUM AND SINCE THEN SHE IMPROVED AND SURVIVE. SINCE THEN SHE IS ON FLORASTOR DAILY FOR C DIFF PREVENTION. THIS ADMISSION SHE COMES WITH PAINLESS HEMATURIA. SHE WAS SEEN BY DR. RODRIGUEZ WHO MAY HAVE TO DO PROCEDURE AT A LATER DATE. SHE IS STARTED ON ANTIBIOITCS AND IV FLUIDS. Hospital Course: MONCHO COMES WITH PAIN IN LOWER ABDOMEN,HASUTI WITH RETENTION OF URINE. AFTERFOLEY AND ABX SHE RECOVERED. SHE GREW KLEB.PNEUMONIA [facility] URINE [facility]. SHE WILL GO HOME TODAY. DR. RODRIGUEZ IS OUTOF TOWN FOR A MONTH. SHE MAY OR MAY NOT GO TO HIM IF WE NEED HELP EARLIER. Vital Signs/Physical Exam: Temp Pulse Resp BP Pulse Ox 96.8 F 75 16 135/68 96 06/02/24 08:00 06/02/24 09:15 06/02/24 08:00 06/02/24 09:15 06/02/24 08:00 Laboratory Data at Discharge: WBC 8.50 thou/uL (4.3-10.9) 06/01/24 08:27 Hgb 10.5 g/dL (12.0-15.0) L 06/01/24 08:27 Hct 31.7 % (36.0-45.0) L 06/01/24 08:27 Plt Count 233 thou/uL (152-406) 06/01/24 08:27 Sodium 140 mEq/L (136-145) 06/01/24 08:27 Potassium 4.1 mEq/L (3.5-5.1) 06/01/24 08:27 BUN 12 mg/dL (7-18) 06/01/24 08:27 Creatinine 0.83 mg/dL (0.55-1.02) 06/01/24 08:27 Glucose 99 mg/dL (74-106) 06/01/24 08:27 Total Bilirubin 1.0 mg/dL (0.2-1.0) 05/29/24 22:08 AST 40 U/L (15-37) H 05/29/24 22:08 ALT 18 U/L (13-56) 05/29/24 22:08 Alkaline Phosphatase 38 U/L (45-117) L 05/29/24 22:08 Lipase 50 U/L (13-75) 05/29/24 22:08 Home Medications: Gabapentin 300 mg PO BID 03/14/19 Sertraline HCl 50 mg PO DAILY 03/14/19 Fenofibrate [Tricor*] 145 mg PO DAILY 12/01/22 Montelukast [Singulair*] 10 mg PO DAILY 01/10/24 Solifenacin Succinate [Vesicare] 10 mg PO DAILY 01/10/24 carvediloL [Coreg*] 3.125 mg PO BIDWM #180 tab 01/17/24 Alendronate Sodium 70 mg PO DAILY 05/30/24 Famotidine 20 mg PO BID 05/30/24 Ciprofloxacin HCl [Cipro 500 MG Tablet] 500 mg PO BID #14 tab 06/02/24 New Medications: Ciprofloxacin HCl [Cipro 500 MG Tablet] 500 mg PO BID #14 tab Followup: Earl Almanza MD [Primary Care Provider] - 1-2 Weeks
--- NOTE | 2024-06-02 10:11 | P.PN ---
Subjective Date of Service: 05/31/24 Chief Complaint: Pelvic pain and gross hematuria SHE IS STABLE,HAS GARZA. NO DIARRHEA YET. SHE COULD NOT GO HOME TODAY WE ARE WAITING FOR CULTURE. THE MICRO MACHINE IS WORKING NOW AND THEY WILL GET RESULTS ON 24TH AM. SHE HAS GAS BUT NO DIARRHEA. SHE WASGIVEN MEDS AT NIGHT. Review of Systems 10-point ROS is otherwise unremarkable General: As per HPI Physical Examination - Vital Signs Temperature: 96.8 F Blood Pressure: 135/68 Pulse: 75 Respirations: 16 Pulse Ox (%): 96 - Physical Exam General: Mild distress HEENT: Atraumatic, PERRLA, EOMI Neck: Supple, JVD not distended Respiratory: Clear to auscultation bilaterally, Normal air movement Cardiovascular: Regular rate/rhythm, Normal S1 S2 Gastrointestinal: Normal bowel sounds, No tenderness Musculoskeletal: No tenderness Integumentary: No rashes Neurological: Normal speech, Normal tone, Normal affect Lymphatics: No axilla or inguinal lymphadenopathy - Studies Microbiology Data (last 24 hrs): 05/29/24 21:51 Clean Catch Urine [place] Count - Final >100,000 CFU/ML. 05/29/24 21:51 Clean Catch Urine - Final Klebsiella Pneumoniae Medications List Reviewed: Yes Assessment And Plan - Current Problems (Diagnosis) (1) Hydronephrosis, left Current Visit: Yes Status: Acute Plan: RESOLVED AFTER ABX AND GARZA. SHE MAY HAVE RETENTION OF URINE. (2) Acute cystitis Current Visit: Yes Status: Acute Plan: IV CEFEPIME STOP ROCEPHIN IV FLUIDS DETAILS OF PLANS BY DR RODRIGUEZ. MAY BE ABLE TO GO HOME ON ORAL ABX WITH CULTURE RESULTS. THERE IS ALWAYS ARISK OF C DIFF COLITIS. WILL DISCUSS WITH IN AM. CULTURE PENDING. CONT ABX. PROGNOSIS GUARDED. Qualifiers: Hematuria presence: with hematuria Qualified Code(s): N30.01 - Acute cystitis with hematuria (3) Gross hematuria Current Visit: Yes Status: Acute Plan: REASON ABOVE MASS TO BE RULED OUT.
[2024-06-02 12:34] VITALS: BP 113/73; TEMP 98.4
== END 2024-06-02 15:13 | disposition home or self-care (01) | DRG 690 ==
LOC: ER 20:57 → ERHOLD 05-30 02:28 → 2ND 05-30 15:18
PROVIDERS: ADMIT Internal Medicine; ATTEND Internal Medicine
DX: N13.6 Pyonephrosis (principal); E78.00 Pure hypercholesterolemia, unspecified; N32.81 Overactive bladder; I10 Essential (primary) hypertension; N28.1 Cyst of kidney, acquired; N32.9 Bladder disorder, unspecified; K21.9 Gastro-esophageal reflux disease without esophagitis; M17.12 Unilateral primary osteoarthritis, left knee; B96.1 Klebsiella pneumoniae [K. pneumoniae] as the cause of diseases classified elsewhere; Z88.5 Allergy status to narcotic agent; Z98.51 Tubal ligation status; Z68.30 Body mass index [BMI] 30.0-30.9, adult; Z79.02 Long term (current) use of antithrombotics/antiplatelets; Z28.310 Unvaccinated for COVID-19; Z90.710 Acquired absence of both cervix and uterus
CPT/HCPCS: 36415; 51702; 74176; 76770; 80048; 80053; 81001; 83690; 85025; 87077; 87086; 87088; 87186; 96361; 96365; 99285; J0692; J2185; J2405; J7030

== ENCOUNTER 2024-08-14 08:03 | Day surgery (SDC) | payer OTHER ==
[2024-08-09 10:50] LABS: Absolute Eosinophils 0.4 K/uL (0-0.5); Absolute Lymphocytes (CBC) 0.7 K/uL (0.7-4.9); Absolute Monocytes 0.2 K/uL (0.1-1.3); Absolute Neutrophil 2.8 K/uL (1.8-8.0); Eosinophils % 9.5 % (0-4.4); Hematocrit 35.7 % (36.0-45.0); Hemoglobin 11.6 g/dL (12.0-15.0); Lymphocytes % 16.7 % (15.3-44.8); MCH 30.4 pg (27.0-35.0); MCHC 32.6 g/dL (32.0-36.0); MCV 93.2 fL (80-100); MPV 7.5 fL (7.6-11.3); Neutrophils % 67.8 % (41.7-73.7); Platelets 131 thou/uL (152-406); RBC Red Blood Cell Count 3.84 M/uL (3.86-4.86); Red Cell Distribution Width 15.9 % (12.1-15.2)
[2024-08-09 10:51] LABS: PT Prothrombin Time 12.6 SECONDS (9.4-12.5); Protime INR 1.13
[2024-08-09 11:02] LABS: Anion Gap 5.4 mEq/L (5.0-15.0); Potassium 4.4 mEq/L (3.5-5.1)
--- NOTE | 2024-08-09 12:51 | RAD REPORT ---
EXAMINATION: TWO VIEW CHEST XR CLINICAL INDICATION: Female, 69 years old. BR MAIN Pre-op pending surgery. Hypertension TECHNIQUE: 2 view radiographs of the chest were performed. COMPARISON: 06/23/2024 FINDINGS: The lungs are well inflated and clear. No pneumothorax or sizable effusion. The heart is normal in si ze. Mediastinal contours are unremarkable. IMPRESSION: No acute or significant abnormalities.
[2024-08-14] MEDS: Ringers Lactate 1,000 ML IV ONE (08:25)
[2024-08-14] MEDS ORDERED: FENTANYL CITR 100 MCG/2 ML ONE (08:47)
[2024-08-14] MEDS ORDERED: LIDOCAINE 1% MPF 5 ML VIAL ONE (08:47)
[2024-08-14] MEDS ORDERED: propofoL 200 MG/20 ML VIAL IV ONE (08:47)
[2024-08-14] MEDS ORDERED: ONDANSETRON 4 MG/2 ML VIAL ONE (08:47)
[2024-08-14] MEDS: Ciprofloxacin 200mg IV 200 MG/100 ML IV.SOLN. IV ONE (09:40)
[2024-08-14] MEDS ORDERED: EPHEDRINE SULF 50 MG/ML VIAL ONE (09:43)
[2024-08-14] MEDS ORDERED: dexAMETHasone 10 MG/ML VIAL ONE (09:46)
[2024-08-14] MEDS ORDERED: GLYCOPYRROLATE 0.2 MG/ML SYR ONE (09:51)
[2024-08-14] MEDS ORDERED: TRAMADOL 37.5mg/APAP 325mg PER TAB PO ONE (10:27)
--- NOTE | 2024-08-14 10:27 | P.OP ---
Date of Service: 08/14/24 Preoperative diagnoses: Chronic urinary retention s/p sacral neuromodulation Bilateral hydroureteronephrosis CKD stage IIIb Postoperative diagnoses: Chronic urinary retention s/p sacral neuromodulation Bilateral hydroureteronephrosis CKD stage IIIb Bilateral UVJ obstruction Suspected left UPJ obstruction Principal procedures: Cystoscopy Left retrograde pyelography Left ureteral dilation Left ureteroscopy Left 6 [place] by 24 cm double-J ureteral stent placement Right retrograde pyelography Right ureteral dilation Right ureteroscopy Right 6 [place] by 26 cm double-J ureteral stent placement 18 [place]an urethral Ward catheter placement Indication for procedure: 69-year-old woman who has been admitted several times with complicated UTIs, treated multiple times with antimicrobial therapy ultimately developing C. difficile colitis requiring vancomycin enemas, with CKD stage IIIb and bilateral persistent hydroureteronephrosis. Additionally, she has a history of sacral neuromodulation procedure, but despite this, she has chronic urinary retention with urethral Ward catheter in place post multiple failed voiding trials. Procedure note: The patient was consented in the preoperative holding area before being transferred to the operative suite where general anesthesia was induced. She was given ciprofloxacin 200 mg IV antimicrobial prophylaxis, and pneumoboots were provided for DVT prophylaxis. She was placed in the lithotomy position, padded and secured to the table appropriately. Her genitalia was prepped with Hibiclens and she was draped in standard fashion. The case was begun using a 22 [place]an rigid cystoscope to traverse her urethra and into her bladder with relative ease. The bladder was surveyed in its entirety, and other than some mild catheter trauma observed posteriorly, there was no evidence of papillary mucosal lesion, foreign body or stone. The mucosa was somewhat friable and did develop a degree of hematuria associated with mild distention. The ureteral orifices were orthotopic in location. Left retrograde pyelography: Using a 5 [place]an ureteral access catheter, the tip of the catheter was placed into the ureteral orifice with ease and advanced within the distal ureter approximately 1 to 2 cm. A retrograde pyelogram was then performed using a 70: 30 mixture of Omnipaque and saline. Contrast mixture was injected via the lumen of the 5 [place]an ureteral access catheter and did propagate up the distal into the mid and proximal ureter before entering the renal pelvis in a delayed fa shion. There was ureteronephrosis/dilatation of the ureter observed all the way down to the UVJ, and some delayed transit at the level of the UPJ. Ultimately, the calyces did fill without evidence of filling defect though moderate hydronephrosis was observed. As a result, I placed a sensor wire via the 5 [place]an ureteral access catheter and was able to navigated into the upper pole of the collecting system with ease. I left the wire in place and then passed an 8/10 dilator over the wire all the way into the proximal ureter with ease. Leaving that dilator in place, I then turned my attention to the patient's right side. Right retrograde pyelography: Using a 5 [place]an ureteral access catheter, the tip of the catheter was placed into the ureteral orifice with ease and advanced within the distal ureter approximately 1 to 2 cm. A retrograde pyelogram was then performed using a 70: 30 mixture of Omnipaque and saline. Contrast mixture was injected via the lumen of the 5 [place]an ureteral access catheter and did propagate up the distal into the mid and proximal ureter before entering the renal pelvis in a delayed fashion. There was ureteronephrosis/dilatation of the ureter observed all the way down to the UVJ, and some delayed transit at the level of the UPJ. Ultimately, the calyces did fill without evidence of filling defect though moderate hydronephrosis was observed. As a result, I placed a [employer] guide wire via the 5 [place]an ureteral access catheter and was able to navigated into the upper pole of the collecting system with ease. I left the wire in place and then passed an 8/10 dilator over the wire all the way into the proximal ureter with ease. Leaving that dilator in place, I then turned my attention back to the patient's left side. Left ureteroscopy: Using a semirigid ureteroscope and pressurized saline irrigation, I was able to navigate the scope via the urethra into her bladder and into the ureteral orifice. Ultimately, I was able to navigate the ureteroscope all the way up the distal into the mid and proximal ureter navigating beyond an apparent UPJ obstruction before entering the renal pelvis. No ureteral lesions, stricture disease, or other source of obstruction was encountered along the entirety of the way. As a result, I backed the semirigid ureteroscope down the ureter surveying it on the way out ultimately removing the ureteroscope. I then turned my attention back to the patient's right side where I removed the 8/10 dilator before performing ureteroscopy on the right side. Right ureteroscopy: Using a semirigid ureteroscope and pressurized saline irrigation, I was able to navigate the scope via the urethra into her bladder and into the ureteral orifice. Ultimately, I was able to navigate the ureteroscope all the way up the distal into the mid and proximal ureter before entering the renal pelvis. No ureteral lesions, stricture disease, or other source of obstruction was encountered along the entirety of the way. As a result, I backed the semirigid ureteroscope down the ureter surveying it on the way out ultimately removing the ureteroscope. Left ureteral stent placement: I backloaded the cystoscope over the sensor wire and then under direct vision, I placed a 6 [place]an by 24 cm double-J ureteral stent with a coil observed fluoroscopically in the renal pelvis on the left and 1 cystoscopically formed in her bladder. Right ureteral stent placement: I backloaded the cystoscope over the [employer] guide wire and then under direct vision, I placed a 6 [place]an by 26 cm double-J ureteral stent with a coil observed fluoroscopically in the renal pelvis on the left and 1 cystoscopically formed in her bladder. I then removed the cystoscope leaving her bladder full before placing an 18 [place]an catheter via her urethra into her bladder with ease. 15 cc of sterile water was placed in the balloon. I then performed a vaginal exam. Vaginal exam: A grade 1-2 cystocele was observed with slight urethral downward angulation. She was then taken out of the lithotomy position, awakened from general anesthesia, transferred to a stretcher, and then transferred to the recovery room in good condition. Complications: None Discharge disposition: I will discharge her with prophylactic Macrobid given the presence of the bilateral stents and the urethral Ward catheter. This is the least likely to contribute to C. difficile colitis among antimicrobials because it is not absorbed systemically. We will then schedule her for prompt urodynamics evaluation MATTHEW, preferably this /August to evaluate her bladder functio n. If no evidence of detrusor contractility, patient may benefit from suprapubic catheter placement.
--- NOTE | 2024-08-14 10:58 | RAD REPORT ---
EXAMUrethrocystogrphy Retrograde CLINICAL HISTORY: Bilateral ureteral stent placement FINDINGS: 10 fluoroscopic spot images submitted. Fluoroscopy time 0.2 minutes. Both ureters were cannulated and contrast administered. Subsequently bilateral renal stents placed. Procedure performed by
[2024-08-14 11:08] VITALS: BP 131/82; TEMP 97; O2SAT 100
[2024-08-14] MEDS ORDERED: TRAMADOL 37.5mg/APAP 325mg PER TAB ONE (11:10)
[2024-08-14] MEDS ORDERED: PHENAZOPYRIDINE 100MG TAB PO ONE (11:11)
[2024-08-14] MEDS: PHENAZOPYRIDINE 100MG TAB PO ONE (11:19)
== END 2024-08-14 12:17 | disposition home or self-care (01) ==
LOC: OR 08:03
PROVIDERS: ATTEND Urology
PROC: 0T788DZ Dilation of Bilateral Ureters with Intraluminal Device, Via Natural or Artificial Opening Endoscopic (ICD-10-PCS; principal; 2024-08-14 09:15)
DX: R33.9 Retention of urine, unspecified (principal); N13.30 Unspecified hydronephrosis; N30.20 Other chronic cystitis without hematuria; R31.0 Gross hematuria; Q62.11 Congenital occlusion of ureteropelvic junction; N18.32 Chronic kidney disease, stage 3b
CPT/HCPCS: 87088; 85025; 87086; 80048; 36415; 85610; 71046; 74450; 51610; 52344; 52332; J2704; J2003; J3010; J1100; J0744; J2405; J7120

== ENCOUNTER 2025-05-21 13:04 | Inpatient (IN) | payer OTHER ==
--- OUTSIDE RECORDS SUMMARY | 2025-05-21 13:08 | XMS REPORT | Continuity of Care Document ---
Author Name Unknown Address [address] [facility] [address] [place] [address] [facility] [place] Address [address] [facility] [address] [facility] [address] [place] [address] Care Team Providers Care Mine Car Dispatcher Name Role Phone Earl Almanza Attending Clinician Unavailable Goldfarb_D Attending Clinician Unavailable [email or web address]_Kadiyala_S Attending Clinician Unavaila ble Baum_L Attending Clinician Unavailable Goldfarb_D Admitting Clinician Unavailable [email or web address]_Kadiyala_S Admitting Clinician Unavaila ble Baum_L Admitting Clinician Unavailable Payers Payer Name Policy Type Policy Number Effective Date Expirati on Date Source [employer] [id number] 2020 00:00:00 [employer] (MEDICARE REPLACEMENT PPO) [id number] 2022 00:00:00 Problems Condition Name Condition Details Condition Category Status Onset Date Resolution Date Last Treatment Date Treating Clinician Comments Source Blood in urine Blood in Urine Problem Active 2-21 00:00: 00 [facility] Chronic pain Chronic Pain Problem Active 3- 00:00: 00 [facility] Hypertensi ve disorder Hypertensi ve Disorder Problem Active 3- 00:00: 00 [facility] Gastroesop hageal reflux disease Gastroesop hageal Reflux Disease Problem Active 3- 00:00: 00 [facility] Irritable bowel syndrome Irritable Bowel Syndrome Problem Active 12-10 00:00: 00 [facility] Osteoarthr itis Osteoarthr itis Problem Active 12-10 00:00: 00 [facility] History of non-Hodgki ns lymphoma History of non-Hodgki ns Lymphoma Problem Active 12-10 00:00: 00 [facility] POTACATH PLACEMENT POTACATH PLACEMENT Active 04/05/2016 [facility] Active 04-05 00:00: 00 2016-04-13 11:09:00 Memoria l Oark Non-Hodgki n lymphoma Non-Hodgki n lymphoma Problem [facility] 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 Problem [facility] Small cell B-cell lymphoma, 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, extranodal and solid organ sites Problem [facility] Chronic lymphoid leukemia in remission Chronic lymphocyti c leukemia in remission Problem [facility] [id number] Primary osteoarthr itis of left knee Problem [facility] [id number] Bilateral primary osteoarthr itis of knee Problem [facility] Arthritis of both knees Arthritis of both knees Problem [facility] [id number] Chronic cystitis Problem [facility] [id number] Primary osteoarthr itis of right knee Problem [facility] [id number] Bilateral hydronephr osis Problem [facility] Lesion of bladder Lesion of bladder Problem [facility] [id number] Complicate d UTI (urinary tract infection) Problem [facility] [id number] Gross hematuria Problem [facility] [id number] Complex renal cyst Problem [facility] [id number] Chronic pyonephros is Problem [facility] Chronic kidney disease Chronic kidney disease Problem [facility] [id number] 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 Problem [facility] [id number] Detrusor instabilit y Problem [facility] [id number] DSD (detrusor and sphincter dyssynergi a) Problem [facility] Anemia due to chronic blood loss Iron deficiency anemia secondary to blood loss (chronic) Problem [facility] Obesity Adult BMI > 30 Problem [facility] Increased frequency of urination (finding) Increased frequency of urination (finding) Resolved Problem 04/29/2022 [facility] Problem Resolve d 2022-04-29 23:51:14 Floridalma Preciado Hiatal hernia (disorder) Hiatal hernia (disorder) Resolved Problem 04/29/2022 [facility] Problem Resolve d 2022-04-29 23:51:14 Floridalma Preciado Low back pain (disorder) Low back pain (disorder) Resolved Problem 04/29/2022 bulging disc [facility] Problem Resolve d 2022-04-29 23:51:14 Floridalma Preciado Vertigo (finding) Vertigo (finding) Resolved Problem 04/29/2022 [facility] Problem Resolve d 2022-04-29 23:51:14 Flroidalma Preciado Urgent desire to urinate (finding) Urgent desire to urinate (finding) Active Problem 04/29/2022 [facility] Problem Active 2022-04-29 23:51:14 Floridalma Preciado Urinary symptoms (finding) Urinary symptoms (finding) Active Problem 04/29/2022 [facility] Problem Active 2022-04-29 23:51:14 Floridalma Preciado Vaginal dryness (disorder) Vaginal dryness (disorder) Active Problem 04/29/2022 [facility] Problem Active 2022-04-29 23:51:14 Floridalma Preciado Malignant lymphoma (disorder) Malignant lymphoma (disorder) Resolved 01/09/2016 Problem 04/29/2022 [facility] Problem Resolve d 4- 00:00: 00 2022-04-29 23:51:14 2022-04-29 23:51:14 Floridalma Preciado Hypertensi ve disorder, systemic arterial (disorder) Hypertensi ve disorder, systemic arterial (disorder) Resolved 10/10/1994 Problem 04/29/2022 [facility] Problem Resolve d 1- 00:00: 00 2022-04-29 23:51:14 2022-04-29 23:51:14 Floridalma Preciado Allergies, Adverse Reactions, Alerts Allergy Name Allergy Type Status Severity Reaction(s) Onset Date Inactive Date Treating Clinician Comments Source Codeine Allergy to substanc e Active [facility] codeine codeine Active Unknown [facility] Social History Social Habit Start Date Stop Date Quantity Comments Source History of Tobacco Use [facility] Sex Assigned At [facility] Social History 2016-04-08 13:52:10 2016-04-08 13:52:10 [facility] Smoking Status Start Date Stop Date Source Never Smoker [facility] Medications Ordered Medication Name Filled Medication Name Start Date Stop Date Current Medication? Ordering Clinician Indication Dosage Frequency Signature (SIG) Comments Components Source Nitrofurant oin Monohyd Macro 100 MG Nitrofurant oin Monohyd Macro 100 MG 5- 00:00: 00 No Nitrofuran toin Monohyd Macro 100 MG BUPivacaine HCl BUPivacaine HCl 2022-10 0-12 00:00: 00 No 4mL [facility] Synvisc One Synvisc One 2022-10 0-12 00:00: 00 No 6mL [facility] Kenalog (Triamcinol one) Kenalog (Triamcinol one) 2022-10 0-12 00:00: 00 No 1mL [facility] Bactrim DS 800 mg- 160 mg oral tablet 5-11 18:05: 00 Yes 1 tab, PO, Q12H, X 5 day, # 10 tab, 0 Refill(s), Pharmacy: [facility] [id number] Floridalma Preciado dicyclomine 20 mg tablet dicyclomine 20 mg tablet 4-19 00:00: 00 No dicyclomin e 20 mg tablet [facility] ciprofloxac in 500 mg tablet ciprofloxac in 500 mg tablet 3-15 00:00: 00 No ciprofloxa agnieszka 500 mg tablet [facility] cefuroxime axetil 250 mg tablet cefuroxime axetil 250 mg tablet 3-08 00:00: 00 No cefuroxime axetil 250 mg tablet [facility] fenofibrate nanocrystal lized 145 mg tablet fenofibrate nanocrystal lized 145 mg tablet 2-02 00:00: 00 No fenofibrat e nanocrysta llized 145 mg tablet [facility] clotrimazol e-betametha sone 1 %-0.05 % topical cream clotrimazol e-betametha sone 1 %-0.05 % topical cream 05-04 00:00: 00 No clotrimazo le-betamet hasone 1 %-0.05 % topical cream [facility] nystatin 100,000 unit/gram topical powder nystatin 100,000 unit/gram topical powder 05-04 00:00: 00 No nystatin 100,000 unit/gram topical powder [facility] famotidine 40 mg tablet famotidine 40 mg tablet 6-08 00:00: 00 No famotidine 40 mg tablet [facility] sertraline 50 mg tablet sertraline 50 mg tablet 608 00:00: 00 No sertraline 50 mg tablet [facility] Bupivicaine Red Jacket Bupivicaine Red [place]et 5-17 00:00: 00 No 2.5mg [facility] Gel-One Gel-One 5-17 00:00: 00 No 30mg [facility] Gabapentin 300 MG Gabapentin 300 MG 4-29 00:00: 00 No 1{capsu le} QD Gabapentin 300 MG pantoprazol e 40 mg tablet,dorothy yed release pantoprazol e 40 mg tablet,dorothy yed release 9-03 00:00: 00 No pantoprazo le 40 mg tablet,del ayed release [facility] gabapentin 300 mg capsule gabapentin 300 mg capsule 3-03 00:00: 00 No gabapentin 300 mg capsule [facility] alendronate 70 mg tablet alendronate 70 mg tablet No alendronat e 70 mg tablet [facility] amitriptyli ne 25 mg tablet amitriptyli ne 25 mg tablet No amitriptyl ine 25 mg tablet [facility] celecoxib 200 mg capsule celecoxib 200 mg capsule No celecoxib 200 mg capsule [facility] dicyclomine 20 mg tablet dicyclomine 20 mg tablet No dicyclomin e 20 mg tablet [facility] doxycycline hyclate 100 mg tablet doxycycline hyclate 100 mg tablet No doxycyclin e hyclate 100 mg tablet [facility] Estrace 0.01% (0.1 mg/gram) vaginal cream discard applicator, place one drop to index finger and apply to urethral meatus twice week discard applicator, place one drop to index finger and apply to urethral meatus twice week Estrace 0.01% (0.1 mg/gram) vaginal cream discard applicator, place one drop to index finger and apply to urethral meatus twice week discard applicator, place one drop to index finger and apply to urethral meatus twice week No Estrace 0.01% (0.1 mg/gram) vaginal cream discard applicator , place one drop to index finger and apply to urethral meatus twice week discard applicator , place one drop to index finger and apply to urethral meatus twice week [facility] famotidine 40 mg tablet famotidine 40 mg tablet No famotidine 40 mg tablet [facility] fenofibrate nanocrystal lized 145 mg tablet fenofibrate nanocrystal lized 145 mg tablet No fenofibrat e nanocrysta llized 145 mg tablet [facility] gabapentin 300 mg capsule gabapentin 300 mg capsule No gabapentin 300 mg capsule [facility] hydrocodone 5 mg-acetamin ophen 325 mg tablet hydrocodone 5 mg-acetamin ophen 325 mg tablet No hydrocodon e 5 mg-acetami nophen 325 mg tablet [facility] losartan 50 mg tablet losartan 50 mg tablet No losartan 50 mg tablet [facility] meclizine 25 mg tablet meclizine 25 mg tablet No meclizine 25 mg tablet [facility] montelukast 10 mg tablet montelukast 10 mg tablet No montelukas t 10 mg tablet [facility] nitrofurant oin monohydrate /macrocryst als 100 mg capsule nitrofurant oin monohydrate /macrocryst als 100 mg capsule No nitrofuran toin monohydrat e/macrocry stals 100 mg capsule [facility] Prolia 60 mg/mL subcutaneou s syringe INJECT 1ML (60MG DOSE) SUBCUTANEOU SLY EVERY 6 MONTHS. Prolia 60 mg/mL subcutaneou s syringe INJECT 1ML (60MG DOSE) SUBCUTANEOU SLY EVERY 6 MONTHS. No Prolia 60 mg/mL subcutaneo us syringe INJECT 1ML (60MG DOSE) SUBCUTANEO USLY EVERY 6 MONTHS. [facility] sertraline 50 mg tablet sertraline 50 mg tablet No sertraline 50 mg tablet [facility] sulfamethox azole 800 mg-trimetho prim 160 mg tablet sulfamethox azole 800 mg-trimetho prim 160 mg tablet No sulfametho xazole 800 mg-trimeth oprim 160 mg tablet [facility] Synvisc-One 48 mg/6 mL intra-artic ular syringe Synvisc-One 48 mg/6 mL intra-artic ular syringe No Synvisc-On e 48 mg/6 mL intra-evgeny cular syringe [facility] trimethopri m 100 mg tablet trimethopri m 100 mg tablet No trimethopr im 100 mg tablet [facility] Vesicare 10 mg tablet Take 1 tablet every day by oral route. Vesicare 10 mg tablet Take 1 tablet every day by oral route. No 1 Q1D Vesicare 10 mg tablet Take 1 tablet every day by oral route. [facility] alendronate 70 mg tablet alendronate 70 mg tablet No alendronat e 70 mg tablet [facility] amitriptyli ne 25 mg tablet amitriptyli ne 25 mg tablet No amitriptyl ine 25 mg tablet [facility] celecoxib 200 mg capsule celecoxib 200 mg capsule No celecoxib 200 mg capsule [facility] doxycycline hyclate 100 mg tablet doxycycline hyclate 100 mg tablet No doxycyclin e hyclate 100 mg tablet [facility] Estrace 0.01% (0.1 mg/gram) vaginal cream discard applicator, place one drop to index finger and apply to urethral meatus twice week discard applicator, place one drop to index finger and apply to urethral meatus twice week Estrace 0.01% (0.1 mg/gram) vaginal cream discard applicator, place one drop to index finger and apply to urethral meatus twice week discard applicator, place one drop to index finger and apply to urethral meatus twice week No Estrace 0.01% (0.1 mg/gram) vaginal cream discard applicator , place one drop to index finger and apply to urethral meatus twice week discard applicator , place one drop to index finger and apply to urethral meatus twice week [facility] fosfomycin tromethamin e 3 gram oral packet Take by oral route for 90 days. fosfomycin tromethamin e 3 gram oral packet Take by oral route for 90 days. No fosfomycin tromethami ne 3 gram oral packet Take by oral route for 90 days. [facility] Gemtesa 75 mg tablet Take 1 tablet every day by oral route. Gemtesa 75 mg tablet Take 1 tablet every day by oral route. No 1 Q1D Gemtesa 75 mg tablet Take 1 tablet every day by oral route. [facility] hydrocodone 5 mg-acetamin ophen 325 mg tablet hydrocodone 5 mg-acetamin ophen 325 mg tablet No hydrocodon e 5 mg-acetami nophen 325 mg tablet [facility] losartan 50 mg tablet losartan 50 mg tablet No losartan 50 mg tablet [facility] meclizine 25 mg tablet meclizine 25 mg tablet No meclizine 25 mg tablet [facility] montelukast 10 mg tablet montelukast 10 mg tablet No montelukas t 10 mg tablet [facility] nitrofurant oin monohydrate /macrocryst als 100 mg capsule nitrofurant oin monohydrate /macrocryst als 100 mg capsule No nitrofuran toin monohydrat e/macrocry stals 100 mg capsule [facility] Prolia 60 mg/mL subcutaneou s syringe INJECT 1ML (60MG DOSE) SUBCUTANEOU SLY EVERY 6 MONTHS. Prolia 60 mg/mL subcutaneou s syringe INJECT 1ML (60MG DOSE) SUBCUTANEOU SLY EVERY 6 MONTHS. No Prolia 60 mg/mL subcutaneo us syringe INJECT 1ML (60MG DOSE) SUBCUTANEO USLY EVERY 6 MONTHS. [facility] sulfamethox azole 800 mg-trimetho prim 160 mg tablet Take 1 tablet every 12 hours by oral route. sulfamethox azole 800 mg-trimetho prim 160 mg tablet Take 1 tablet every 12 hours by oral route. No sulfametho xazole 800 mg-trimeth oprim 160 mg tablet Take 1 tablet every 12 hours by oral route. [facility] Synvisc-One 48 mg/6 mL intra-artic ular syringe Synvisc-One 48 mg/6 mL intra-artic ular syringe No Synvisc-On e 48 mg/6 mL intra-evgeny cular syringe [facility] tramadol 50 mg tablet tramadol 50 mg tablet No tramadol 50 mg tablet [facility] trimethopri m 100 mg tablet trimethopri m 100 mg tablet No trimethopr im 100 mg tablet [facility] Vesicare 10 mg tablet Take 1 tablet every day by oral route. Vesicare 10 mg tablet Take 1 tablet every day by oral route. No 1 Q1D Vesicare 10 mg tablet Take 1 tablet every day by oral route. [facility] Fenofibrate 145 MG Fenofibrate 145 MG No 1{table t} QD Fenofibrat e 145 MG Meclizine HCl 25 MG Meclizine HCl 25 MG No Meclizine HCl 25 MG Singulair 10 MG Singulair 10 MG No 1{table t} QD Singulair 10 MG Dicyclomine HCl 10 MG Dicyclomine HCl 10 MG No 2{capsu les} TID Dicyclomin e HCl 10 MG Famotidine 40 MG Famotidine 40 MG No QD Famotidine 40 MG Carvedilol 3.125 MG Carvedilol 3.125 MG No 1{table t_with_ food} BID Carvedilol 3.125 MG Sertraline HCl 50 MG Sertraline HCl 50 MG No 1{table t} QD Sertraline HCl 50 MG Immunizations Ordered Immunization Name Filled Immunization Name Date Status Comments Source influenza, [id number] influenza, [id number] Unknown Complete d [facility] Vital Signs Vital Name Observation Time Observation Value Comments S ource respiratory rate 2025-02-07 09:15:00 18 /min [facility] blood pressure systolic 2025-02-07 09:15:00 110 mm[Hg] [facility] blood pressure diastolic 2025-02-07 09:15:00 60 mm[Hg] [facility] height 2025-02-07 09:15:00 65 [in_i] Commo n [facility] weight 2025-02-07 09:15:00 176 [lb_av] Comm on [facility] temperature 2025-02-07 09:15:00 97.3 [degF] Com [facility] bmi 2025-02-07 09:15:00 29.28 kg/m2 Comm on [facility] oximetry 2025-02-07 09:15:00 96 % Commo n [facility] temperature 2024-12-20 08:15:00 97.6 [degF] Com [facility] bmi 2024-12-20 08:15:00 30.25 kg/m2 Comm on [facility] oximetry 2024-12-20 08:15:00 95 % Commo n [facility] respiratory rate 2024-12-20 08:15:00 17 /min [facility] blood pressure systolic 2024-12-20 08:15:00 145 mm[Hg] [facility] blood pressure diastolic 2024-12-20 08:15:00 71 mm[Hg] [facility] height 2024-12-20 08:15:00 65 [in_i] Commo n [facility] weight 2024-12-20 08:15:00 181.8 [lb_av] Co [facility] height 2024-07-26 11:45:00 65 [in_i] Commo n [facility] weight 2024-07-26 11:45:00 177.6 [lb_av] Co [facility] temperature 2024-07-26 11:45:00 97.6 [degF] Com [facility] bmi 2024-07-26 11:45:00 29.55 kg/m2 Comm on [facility] oximetry 2024-07-26 11:45:00 98 % Commo n [facility] respiratory rate 2024-07-26 11:45:00 18 /min [facility] blood pressure systolic 2024-07-26 11:45:00 128 mm[Hg] [facility] blood pressure diastolic 2024-07-26 11:45:00 86 mm[Hg] [facility] BMI (Body Mass Index) 2023-11-17 00:00:00 32.1 kg/m2 [facility] Body Weight 2023-11-17 00:00:00 193 [lb_av] [facility] Height 2023-11-17 00:00:00 65 [in_i] [facility] Body Weight 2023-08-15 00:00:00 193 [lb_av] [facility] Height 2023-08-15 00:00:00 65 [in_i] [facility] BMI (Body Mass Index) 2023-08-15 00:00:00 32.1 kg/m2 [facility] Procedures Procedure Date / Time Performed Performing Clinicia n Source Bone marrow biopsy<sup>1</sup> 2016-04-03 05:00:00 Maximus Preciado Colonoscopy and biopsy of colon<sup>2</sup> 2005-10-10 06:00:00 Maximus Preciado Biopsy of neck using ultrasound (US) guidance Maximus Astudillo n Tubal ligation Maximus castro Plan of Care Planned Activity Planned Date Details Comments Source Diagnostic Test Pending 2023-11-17 00:00:00 urinalysis, dipstick [code = urinalysis, dipstick] [facility] Diagnostic Test Pending 2023-11-17 00:00:00 culture, urine + sensitivity [code = culture, urine + sensitivity] [facility] Diagnostic Test Pending 2023-11-17 00:00:00 cytology, urine [code = cytology, urine] [facility] Diagnostic Test Pending 2023-11-17 00:00:00 urinalysis, dipstick [code = urinalysis, dipstick] [facility] Encounters Start Date/Time End Date/Time Encounter Type Admission Type Attending [facility] Care Department Encounter ID Source 2024-07-26 11:34:01 Outpatient Earl Almanza STLMLC STLMLC [id number] [facility] 2025-02-07 00:00:00 2025-02-07 00:00:00 OFFICE VISIT ESTAB PT LEVEL 4 [facility] ST[facility] [id number] [facility] 2024-12-20 00:00:00 2024-12-20 00:00:00 OFFICE VISIT ESTAB PT LEVEL 5 [facility] ST[facility] [id number] [facility] 2024-12-11 00:00:00 2024-12-11 00:00:00 (TEL) STLMLC ST[facility]C [id number] [facility] 2024-10-31 00:00:00 2024-10-31 00:00:00 (PROC) Procedure STLMLC ST[facility] [id number] [facility] 2024-09-11 00:00:00 2024-09-11 00:00:00 (TEL) STLMLC ST[facility]C [id number] [facility] 2024-08-23 00:00:00 2024-08-23 00:00:00 (TEL) STLMLC ST[facility]C [id number] [facility] 2024-07-26 00:00:00 2024-07-26 00:00:00 OFFICE VISIT ESTAB PT LEVEL 5 [facility]C STLMLC [id number] [facility] 2023-11-17 00:00:00 2023-11-17 00:00:00 Al Izquierdo MD: [id number], [place] [address] , Ph. [facility] [place] - [id number] [facility] 2023-08-15 00:00:00 2023-08-15 00:00:00 Al Izquierdo MD: [address] [facility] [address], [place] [address] , Ph. [facility] [place] - [id number] [facility] 2022-05-03 10:00:00 2022-05-03 10:00:00 Outpatient KARIS DYSON [id number] Floridalma Preicado 2022-04-28 09:30:00 2022-04-28 09:30:00 Outpatient KARIS DYSON [id number] Floridalma Preciado 2022-04-26 15:00:00 2022-04-26 15:00:00 Ambulatory Pre-Reg nullFlavo r [facility] [id number] Floridalma Preciado 2022-04-23 19:32:49 2022-04-24 19:32:49 Between Visit nullFlavo r [facility] [id number] Floridalma Preciado 2022-03-10 14:51:50 2022-03-11 14:51:50 Between Visit nullFlavo r [facility] [id number] Floridalma Preciado 2022-02-17 16:22:05 2022-02-18 16:22:05 Between Visit nullFlavo r [facility] [id number] Floridalma Preciado 2022-02-15 09:40:00 2022-02-15 09:40:00 Outpatient KARIS DYSON [id number] Floridalma Preciado 2022-02-01 16:00:00 2022-02-02 04:59:59 Outpatient nullFlavo r [facility] [id number] Floridalma Preciado Results Test Description Test Time Test Comments Results Result Co mments Source Maximus Preciado Notes Date/Time Note Provider Source 2016-04-08 10:25:24 [facility] T: HISTORY: Lymphoma, long-term venous access needed for chemotherapy. PROCEDURE: Preliminary ultrasound of the right neck showed a patent and compressible right internal jugular vein. Using ultrasound guidance, maximum barrier sterile technique and local anesthetic, the right internal jugular vein above the clavicle was [...] the level of the fascia. An 8 [place] open-ended catheter was then tunneled from the [...] 4-0 Vicryl running subcuticular suture. The access site in the neck was then closed with [...] done. The fluoroscopic time was 0.9 minutes.. [id number] [facility]
[2025-05-21 14:43] LABS: Absolute Lymphocytes (CBC) 1.0 K/uL (0.7-4.9); Hematocrit 46.0 % (36.0-45.0); Hemoglobin 15.6 g/dL (12.0-15.0); MCH 30.8 pg (27.0-35.0); MCHC 33.8 g/dL (32.0-36.0); MCV 91.0 fL (80-100); MPV 7.6 fL (7.6-11.3); Nucleated RBC Absolute Count 0.0 (0-0); Nucleated Red Blood Cells % 0.1 % (0-0); RBC Red Blood Cell Count 5.05 M/uL (3.86-4.86); White Blood Count 13.00 thou/uL (4.3-10.9)
[2025-05-21 15:04] LABS: PT Prothrombin Time 13.5 SECONDS (10-13.0); Protime INR 1.2
[2025-05-21 15:05] LABS: ALT/SGPT 26.0 U/L (13-56); AST/SGOT 39.0 U/L (15-37); Albumin 3.9 g/dL (3.4-5.0); Albumin/Globulin Ratio 0.9 (1.1-1.8); Alkaline Phosphatase 29.0 U/L (45-117); Anion Gap 10.1 mEq/L (5.0-15.0); BUN Blood Urea Nitrogen 37.0 mg/dL (7-18); Bilirubin Indirect, Calculated 0.7 mg/dL (0.2-0.8); Globulin 4.2 g/dL (2.3-3.5); Glucose Level 154.0 mg/dL (74-106); Lipase 38.0 U/L (13-75); Magnesium 1.8 mg/dL (1.6-2.4); NT PRO-BNP 2752.0 pg/mL (<125); Potassium 4.1 mEq/L (3.5-5.1)
[2025-05-21 15:08] LABS: Troponin High Sensitivity 1302.0 pg/mL (<58.9)
[2025-05-21] MEDS ORDERED: ASPIRIN 81 MG CHEWABLE TABLET ONE (16:00)
[2025-05-21] MEDS ORDERED: ONDANSETRON 4 MG/2 ML VIAL ONE (16:00)
[2025-05-21] MEDS ORDERED: MORPHINE 4 MG/ML SYR ONE (16:01)
[2025-05-21] MEDS ORDERED: NA CHLORIDE 0.9% 100 ML ONE (16:01)
[2025-05-21] MEDS ORDERED: CEFEPIME 1 GM/VIAL ONE (16:01)
[2025-05-21 16:19] LABS: Blood Morphology Comment NOT SEEN (NOT SEEN); White Blood Cell Scan OK (OK)
--- NOTE | 2025-05-21 16:24 | RAD REPORT ---
EXAMINATION: CT Abdomen Pelvis W Contrast CLINICAL INDICATION: Female, 69 years old. ABD PAIN TECHNIQUE: CT abdomen and pelvis was performed, after the administration of IV contrast, as [facility]. Axial, sagittal and coronal reconstructions were obtained. One or more of the following dose reduction techniques were used: Automated exposure control, adjustment of the mA and k V according to patient size, and iterative reconstruction. Unless otherwise specified, incidental findings do not require dedicated imaging follow-up. COMPARISON: 06/18/2022 FINDINGS: LOWER CHEST: The visualized lung bases are clear. LIVER: Normal in size and contour. No focal lesion. BILIARY SYSTEM: Status post cholecystectomy. SPLEEN: Normal size. No focal lesion. PANCREAS: No mass, ductal dilation, or nusrat-pancreatic fluid. ADRENALS: Normal; no mass. KIDNEYS: Normal size and contour. Moderate bilateral hydroureteronephrosis. Moderate urothelial enhan cement along the mid to distal ureters bilaterally. No evidence of radiopaque calculi. Benign-appearing right renal cortical cysts. URINARY BLADDER: Markedly distended. Ward catheter in place. Diffuse wall thickening and pericystic fat stranding most pronounced at the dome. Nonspecific mild pericystic nonlocalized fluid GASTROINTESTINAL TRACT: No evidence of free air, significant intra-abdominal free fluid, bowel obstru ction or abscess. APPENDIX: Normal appendix. LYMPH NODES: No lymphadenopathy. MUSCULOSKELETAL: No acute or suspicious osseous abnormality. Grade 1 anterolisthesis of L4 over L5 ag ain seen. ADDITIONAL FINDINGS: None. IMPRESSION: Moderate bilateral hydroureteronephrosis with mild urothelial enhancement along the mid to distal ure ters bilaterally. No evidence of obstructing calculi. Diffuse bladder wall thickening with adjacent fat stranding and free pubic nonspecific fluid. Findings suggest cystitis, possibly with ascending in fection.
--- NOTE | 2025-05-21 16:50 | EDPHYS ---
Physician Documentation [facility] Name: Jovana Tyson Age: 69 yrs Sex: Female : 1955 Arrival Date: 05/21/2025 Time: 13:04 Bed 6 Private MD: ED Physician Shy Faria HPI: 05/21 15:20 This 69 yrs old Female presents to ER via EMS with complaints of Abdominal sp3 Pain. 15:20 69-year-old male with history of non-Hodgkin's lymphoma, hypertension, hyperlipidemia, sp3 now presents to the ED with chief complaint lower abdominal pain. Patient has an indwelling Ward due to overactive bladder. She denies any chest pain or shortness of breath. Symptoms been going on for the last 48 hours. She also denies any headache, fever, neck pain, back pain, dysuria, urinary frequency, syncope, bleeding, or any other signs or symptoms on ROS at this time.. Historical: - Allergies: 13:13 Codeine; hb - PMHx: 13:13 Hypercholesterolemia; Hypertensive disorder; Non-Hodgkins Lymphona; overactive bladder; hb - PSHx: 13:13 bladder stimulator; tubal ligation; hb - Immunization history:: Adult Immunizations unknown. - Infectious Disease History:: Denies. - Social history:: Smoking status: Patient denies any tobacco usage or history of. ROS: 15:21 Constitutional: Negative for fever, chills, and weight loss, Eyes: Negative for injury, sp3 pain, redness, and discharge, ENT: Negative for injury, pain, and discharge, Neck: Negative for injury, pain, and swelling, Cardiovascular: Negative for chest pain, palpitations, and edema, Respiratory: Negative for shortness of breath, cough, wheezing, and pleuritic chest pain, Back: Negative for injury and pain, MS/Extremity: Negative for injury and deformity, Skin: Negative for injury, rash, and discoloration, Neuro: Negative for headache, weakness, numbness, tingling, and seizure, Psych: Negative for depression, anxiety, suicide ideation, homicidal ideation, and hallucinations, Allergy/Immunology: Negative for hives, rash, and allergies, Endocrine: Negative for neck swelling, polydipsia, polyuria, polyphagia, and marked weight changes, Hematologic/Lymphatic: Negative for swollen nodes, abnormal bleeding, and unusual bruising, 15:21 All other systems are negative, Exam: 15:21 Constitutional: This is a well developed, well nourished patient who is awake, alert, sp3 and in no acute distress. Head/Face: Normocephalic, atraumatic. Eyes: Pupils equal round and reactive to light, extra-ocular motions intact. Lids and lashes normal. Conjunctiva and sclera are non-icteric and not injected. Cornea within normal limits. Periorbital areas with no swelling, redness, or edema. Neck: Trachea midline, no thyromegaly or masses palpated, and no cervical lymphadenopathy. Supple, full range of motion without nuchal rigidity, or vertebral point tenderness. No Meningismus. Chest/axilla: Normal chest wall appearance and motion. Nontender with no deformity. No lesions are appreciated. Cardiovascular: Regular rate and rhythm with a normal S1 and S2. No gallops, murmurs, or rubs. Normal PMI, no JVD. No pulse deficits. Respiratory: Lungs have equal breath sounds bilaterally, clear to auscultation and percussion. No rales, rhonchi or wheezes noted. No increased work of breathing, no retractions or nasal flaring. Back: No spinal tenderness. No costovertebral tenderness. Full range of motion. Skin: Warm, dry with normal turgor. Normal color with no rashes, no lesions, and no evidence of cellulitis. MS/ Extremity: Pulses equal, no cyanosis. Neurovascular intact. Full, normal range of motion. Neuro: Awake and alert, GCS 15, oriented to person, place, time, and situation. Cranial nerves II-XII grossly intact. Motor strength 5/5 in all extremities. Sensory grossly intact. Cerebellar exam normal. Normal gait. Psych: Awake, alert, with orientation to person, place and time. Behavior, mood, and affect are within normal limits. 15:21 Abdomen/GI: Pain to palpation lower bilateral quadrants without peritoneal signs, rebound or guarding., 15:27 ECG was reviewed by the Attending Physician. EKG demonstrates normal sinus rhythm at 90 sp3 bpm with normal intervals, normal QRS, normal axis, nonspecific diffuse ST/T changes without evidence of acute ischemia. Vital Signs: 13:14 BP 149 / 81; Pulse 102; Resp 18; Temp 97.4(TE); Pulse Ox 98% on R/A; Weight 80.29 kg; hb Height 5 ft. 5 in. ; Pain 9/10; 16:30 BP 123 / 65; Pulse 95; Resp 16; Pulse Ox 98% on R/A; db 17:00 BP 126 / 58; Pulse 102; Resp 17; Temp 98.2; Pulse Ox 97% on R/A; db 17:30 BP 120 / 70; Pulse 101; Resp 16; Pulse Ox 95% on R/A; db 13:14 Body Mass Index 29.45 (80.29 kg, 165.1 cm) hb 13:14 Pain Scale: Adult hb [place] Coma Score: 16:00 Eye Response: spontaneous(4). Motor Response: obeys commands(6). Verbal Response: dd2 oriented(5). Total: 15. MDM: 13:17 Medical Screening Exam initiated sp3 15:21 Data reviewed: vital signs, nurses notes, lab test result(s), EKG, radiologic studies. sp3 ED course: 69-year-old female with PMH above now with lower bilateral quadrant abdominal pain. Differential diagnosis is broad and includes appendicitis, diverticulitis, other colitis, SBO, ileus, UTI/pyelonephritis spectrum, kidney stone, musculoskeletal, among others. I am not highly suspicious of vascular pathology including AAA. Workup will include CT scan of the abdomen pelvis with IV contrast, general labs, troponin, lactate, EKG, UA, general supportive care with disposition pending workup and patient course.. 15:29 ED course: Troponin elevated at 1300 with BNP at 2700. Creatinine at 1.9. Aspirin sp3 ordered as well as morphine and Zofran. EKG sent to cardiology. We will await CT scan abdomen pelvis and then admit to medicine pending no significant findings. Patient probably has UTI as well given indwelling Ward. Normal saline bolus held secondary to elevated BNP.. 16:49 ED course: Discussed with Dr. Almanza her PCP who will be admitting her. Continue sp3 cefepime and Dr. Simms also on the case.. 16:50 ED course: Patient with SIRS response and pyelonephritis. However due to NSTEMI and sp3 CHF, we will not give full bolus of IV fluids Patient is already feeling better. I discussed case with Dr. Almanza who knows her extremely well and agrees with the plan.. 05/21 13:18 Order name: Basic Metabolic Panel; Complete Time: 15:23 sp3 05/21 13:18 Order name: CBC with Diff sp3 05/21 13:18 Order name: LFT's; Complete Time: 15:23 sp3 05/21 13:18 Order name: Magnesium; Complete Time: 15:23 sp3 05/21 13:18 Order name: NT PRO-BNP; Complete Time: 15:23 sp3 05/21 13:18 Order name: PT-INR; Complete Time: 15:08 sp3 05/21 13:18 Order name: Troponin HS; Complete Time: 15:23 sp3 05/21 13:18 Order name: Lipase; Complete Time: 15:23 3 05/21 14:46 Order name: CBC Smear Scan EDMS 05/21 15:31 Order name: UA Rfx Zhen Cult if indicated sp3 05/21 15:31 Order name: Blood Culture Adult (2) sp3 05/21 15:31 Order name: Lactate w/ 2H reflex if indic.; Complete Time: 16:29 sp3 05/21 13:18 Order name: CT Abd/Pelvis - IV Contrast Only; Complete Time: 16:29 sp3 05/21 13:18 Order name: EKG - Nurse/Tech; Complete Time: 15:27 sp3 05/21 13:18 Order name: IV Saline Lock; Complete Time: 14:54 sp3 05/21 13:18 Order name: Labs collected and sent; Complete Time: 14:54 sp3 Administered Medications: 16:13 Drug: Aspirin PO Chewable Tablet 324 mg PO once; 81 mg tablets x 4 Route: PO; dd2 16:13 Drug: morphine IVP or IV 4 mg IVP once over 4 mins Route: IVP; Infused Over: 4 mins; dd2 Site: right antecubital; 16:13 Drug: Ondansetron IVP 4 mg IVP once; over 2 minutes Route: IVP; Site: right antecubital;dd2 16:13 Drug: Cefepime IVPB 1 grams IVPB at 200 ml/hr once over 30 mins; (mix in NS 100 mL) dd2 Route: IVPB; Rate: 200 ml/hr; Infused Over: 30 mins; Site: right antecubital; Disposition Summary: 05/21/25 16:50 Hospitalization Ordered Notes: Hospitalization Status: Inpatient Admission sp3 Provider: Earl Almanza sp3 Location: Telemetry/MedSurg (Inpatient)(05/21/25 16:50) sp3 Condition: Stable(05/21/25 16:50) sp3 Problem: an acute exacerbation sp3 Symptoms: have worsened sp3 Bed/Room Type: Standard sp3 Room Assignment: 218(05/21/25 17:06) bd Diagnosis - Pyelonephritis, NSTEMI, CHF sp3 Forms: - Medication Reconciliation Form sp3 - SBAR form sp3 - Leadership Thank You Letter sp3 Signatures: Dispatcher [employer] EDMS Catie Agudelo Heather, RN RN hb Patel, Setul, MD MD sp3 MAGDALENE PITTS RN RN dd2 Corrections: (The following items were deleted from the chart) 13:19 13:19 Abdomen Pelvis W Con+CT.RAD.BRZ ordered. EDMT EDMS 15:25 15:20 69-year-old male with history of non-Hodgkin's lymphoma, hypertension, sp3 hyperlipidemia, now presents to the ED with chief complaint lower abdominal pain. Patient has a colostomy. She denies any chest pain or shortness of breath. Symptoms been going on for the last 48 hours. She also denies any headache, fever, neck pain, back pain, dysuria, urinary frequency, syncope, bleeding, or any other signs or symptoms on ROS at this time.. sp3 15:31 15:29 ED course: Troponin elevated at 1300 with BNP at 2700. Creatinine at 1.9. Aspirin sp3 ordered as well as morphine and Zofran. EKG sent to cardiology. We will await CT scan abdomen pelvis and then admit to medicine pending no significant findings. Patient probably has UTI as well given indwelling Ward.. sp3 15:32 15:32 UA Rfx Zhen Cult if indicated+U.LAB.BRZ ordered. EDMS EDMS 15:32 15:32 BLOOD CULTURE*+BA.LAB.BRZ ordered. EDMS EDMS 15:32 15:32 LACTATE+C.LAB.BRZ ordered. EDMT EDMS 16:50 16:49 Home sp3 sp3 16:50 16:49 Stable sp3 sp3 16:50 16:49 Pyelonephritis, NSTEMI, [facility] sp3 sp3 17:06 16:50 sp3 bd
--- NOTE | 2025-05-21 16:50 | ER ---
Nurse's Notes [facility] Name: Jovana Tyson Age: 69 yrs Sex: Female : 1955 Arrival Date: 05/21/2025 Time: 13:04 Bed 6 Private MD: Diagnosis: Pyelonephritis, NSTEMI, CHF Presentation: 05/21 13:13 Chief complaint: EMS states: Lower abdominal and suprapubic pain x 2 days. Coronavirus hb screen: At this time, the client does not indicate any symptoms associated with coronavirus-19. Ebola Screen: No symptoms or risks identified at this time. Initial Sepsis Screen: Does the patient meet any 2 criteria? No. Patient's initial sepsis screen is negative. Does the patient have a suspected source of infection? No. Patient's initial sepsis screen is negative. Risk Assessment: Do you want to hurt yourself or someone else? Patient reports no desire to harm self or others. Onset of symptoms was May 20, 2025. 13:13 Method Of Arrival: EMS: [facility] hb 13:13 Acuity: VANE 3 hb Historical: - Allergies: 13:13 Codeine; hb - PMHx: 13:13 Hypercholesterolemia; Hypertensive disorder; Non-Hodgkins Lymphona; overactive bladder; hb - PSHx: 13:13 bladder stimulator; tubal ligation; hb - Immunization history:: Adult Immunizations unknown. - Infectious Disease History:: Denies. - Social history:: Smoking status: Patient denies any tobacco usage or history of. Screenin:[facility] ED Fall Risk Assessment (Adult) History of falling in the last 3 months, dd2 including since admission No falls in past 3 months (0 pts) Confusion or Disorientation No (0 pts) Intoxicated or Sedated No (0 pts) Impaired Gait No (0 pts) Mobility Assist Device Used Yes (1 pt) Altered Elimination No (0 pt) Score/Fall Risk Level 0 - 2 = Low Risk Oriented to surroundings, Maintained a safe environment, Educated pt \T\ family on fall prevention, incl call for assistance when getting out of bed, Assessed \T\ reinforced patient's understanding of fall precautions, Hourly rounding (assess needs \T\ fall precautionary measures) done. Abuse screen: Denies threats or abuse. Denies injuries from another. Nutritional screening: No deficits noted. Tuberculosis screening: No symptoms or risk factors identified. Assessment: 14:54 Reassessment: Patient and/or family updated on plan of care and expected duration. Pain ll1 level reassessed. 16:00 General: Appears in no apparent distress. uncomfortable, Behavior is calm, cooperative, dd2 appropriate for age. Pain: Complains of pain in abdomen Pain currently is 8 out of 10 on a pain scale. Neuro: No deficits noted. Cardiovascular: No deficits noted. Respiratory: No deficits noted. GI: Abdomen is non-distended, Bowel sounds present X 4 quads. Abd is soft X 4 quads Abdomen is tender to palpation in suprapubic area, right lower quadrant and left lower quadrant Reports lower abdominal pain, cramping, nausea. : No signs and/or symptoms were reported regarding the genitourinary system. EENT: No deficits noted. No signs and/or symptoms were reported regarding the EENT system. Derm: No deficits noted. No signs and/or symptoms reported regarding the dermatologic system. Musculoskeletal: Circulation, motion, and sensation intact. Range of motion: intact in all extremities. Vital Signs: 13:14 BP 149 / 81; Pulse 102; Resp 18; Temp 97.4(TE); Pulse Ox 98% on R/A; Weight 80.29 kg; hb Height 5 ft. 5 in. ; Pain 9/10; 16:30 BP 123 / 65; Pulse 95; Resp 16; Pulse Ox 98% on R/A; db 17:00 BP 126 / 58; Pulse 102; Resp 17; Temp 98.2; Pulse Ox 97% on R/A; db 17:30 BP 120 / 70; Pulse 101; Resp 16; Pulse Ox 95% on R/A; db 13:14 Body Mass Index 29.45 (80.29 kg, 165.1 cm) hb 13:14 Pain Scale: Adult hb [place] Coma Score: 16:00 Eye Response: spontaneous(4). Motor Response: obeys commands(6). Verbal Response: dd2 oriented(5). Total: 15. ED Course: 13:10 Patient arrived in ED. cj3 13:13 Triage completed. hb 13:14 Arm band placed on. hb 13:17 Shy Faria MD is Attending Physician. sp3 14:29 CT completed. Patient tolerated procedure well. Note: 22 g diffusics to rt ac, labs sj collected and sent by karol in ct. Patient moved to CT via wheelchair. Patient moved back from CT. 14:31 CT Abd/Pelvis - IV Contrast Only In Process Unspecified. EDMS 14:51 Patient placed in an exam room, on a stretcher. ll1 16:00 Patient has correct armband on for positive identification. Bed in low position. Call dd2 light in reach. Side rails up X2. Client placed on continuous cardiac and pulse oximetry monitoring. NIBP monitoring applied. immigration lawyer on. Door closed. Noise minimized. Warm blanket given. Pillow given. Verbal reassurance given. 16:00 No provider procedures requiring assistance completed. Inserted saline lock: 22 gauge dd2 in right antecubital area, using aseptic technique. Blood collected. Flushed with 10 mL NS. 16:00 Patient maintains SpO2 saturation greater than 95% on room air. dd2 16:50 Earl Almanza MD is Hospitalizing Provider. sp3 19:41 Krys Shay, IOANA is Primary Nurse. kd3 19:42 Provided Education on: need for admit . kd3 19:42 Patient admitted, IV remains in place. kd3 Administered Medications: 16:13 Drug: Aspirin PO Chewable Tablet 324 mg PO once; 81 mg tablets x 4 Route: PO; dd2 16:13 Drug: morphine IVP or IV 4 mg IVP once over 4 mins Route: IVP; Infused Over: 4 mins; dd2 Site: right antecubital; 16:13 Drug: Ondansetron IVP 4 mg IVP once; over 2 minutes Route: IVP; Site: right antecubital;dd2 16:13 Drug: Cefepime IVPB 1 grams IVPB at 200 ml/hr once over 30 mins; (mix in NS 100 mL) dd2 Route: IVPB; Rate: 200 ml/hr; Infused Over: 30 mins; Site: right antecubital; Medication: 16:00 VIS not applicable for this client. dd2 Outcome: 16:49 Discharge ordered by . sp3 16:50 Decision to Hospitalize by Provider. sp3 19:42 Admitted to Med/surg kd3 19:42 Condition: stable 19:42 Discharge instructions given to patient, Instructed on the need for transfer, Demonstrated understanding of instructions, 19:42 Patient left the ED. kd3 Signatures: Dispatcher [employer] EDMS Karol Contreras Heather, RN RN hb Johnna Cook, RN RN ll1 Shy Faria MD MD sp3 Krys Shay RN RN kd3 Julia Dougherty RN RN db MAGDALENE PITTS RN RN dd2 Fatmata Dodd cj3 Corrections: (The following items were deleted from the chart) 13:14 13:13 Chief complaint: EMS states: Lower abdominal pain and rectal pain x 2 days. hb hb
--- NOTE | 2025-05-21 21:31 | P.HP ---
Patient History Date of Service: 05/21/25 Reason for admission: LOWER ABDOMEN PAIN History of Present Illness: MONCHO HAS HAD RECURRENT UTI, MANAGED BY DR RODRIGUEZ NOW. SHE HAS HAD RENAL STENTS FOR STONES, HAS HAD SEVERE C DIFF COLIITS BECAUSE OF ANTIBIOTICS GIVEN BY [facility] ON DAILY BASIS FROM [place]. SHE HAD SEVERE C DIFF WHERE SHE WAS SEPTIC AND ONLY IMPROVED AFTER VANCOMYCIN PERRECTAL WITH USE OF FOLE CATHETER. SHE HAD ILEUS AT THAT TIME AND WAS NOT ABLE TOLERATE ANYTHING ORALLY. THIS TIME SHE COMES WITH 3 DAYS OF LOWER ABDOMEN PAIN. Allergies codeine Adverse Reaction (Verified 03/06/25 10:35) Chest pain/Sweating Home medications list reviewed: Yes Home Medications: Gabapentin 300 mg PO BID 03/14/19 Sertraline HCl 50 mg PO DAILY 03/14/19 Fenofibrate [Tricor*] 145 mg PO DAILY 12/01/22 Montelukast [Singulair*] 10 mg PO DAILY 01/10/24 Famotidine 40 mg PO DAILY 05/30/24 Cholecalciferol (Vitamin D3) [D3-50] 50 mcg PO DAILY 06/20/24 Dicyclomine [Bentyl*] 20 mg PO BID 06/20/24 Glucosamine/Chondroiti/Uuoa224 [Cosamin Asu Capsule] 3 cap PO DAILY 06/20/24 Meclizine HCl 25 mg PO TIDP PRN 06/20/24 Mv-Mn/Folic AC/Calcium/Vit K1 [Women's 50 Plus Multivit Tab] 1 each PO DAILY 06/20/24 carvediloL [Coreg*] 6.25 mg PO BIDWM 06/20/24 Saccharomyces Boulardii [Florastor] 250 mg PO DAILY 08/09/24 Nitrofurantoin Monohyd/M-Cryst [Macrobid 100 mg Capsule] 100 mg PO DAILY #30 cap 08/14/24 Solifenacin Succinate [Vesicare] 10 mg PO DAILY #30 tab 03/19/25 - Past Medical/Surgical History Diabetic: No -: HTN -: NHL 2018 in remission -: Recurrent Cystitis/ Urinary Incontinence -: Left Knee OA -: UTIs -: over reactive bladder -: cdiff -: Hysterectomy -: Bladder stimulatory 2022 - Social History Alcohol use: No CD- Drugs: No Caffeine use: No Review of Systems 10-point ROS is otherwise unremarkable General: As per HPI Physical Examination - Vital Signs Temperature: 98.2 F Blood Pressure: 120/70 Pulse: 101 Respirations: 16 - Physical Exam General: Mild distress, Moderate distress, Other (POOR SKIN TURGOR. VISIBLE DEHYDRATION.) HEENT: Atraumatic, PERRLA, Mucous membr. moist/pink, EOMI, Sclerae nonicteric Neck: Supple, 2+ carotid pulse no bruit, No LAD, Without JVD or thyroid abnormality Respiratory: Clear to auscultation bilaterally, Normal air movement Cardiovascular: Regular rate/rhythm, Normal S1 S2 Gastrointestinal: Normal bowel sounds, No tenderness Musculoskeletal: No tenderness Integumentary: No rashes Neurological: Normal gait, Normal speech, Normal strength at 5/5 x4 extr, Normal tone, Normal affect Lymphatics: No axilla or inguinal lymphadenopathy - Studies Laboratory Data (last 24 hrs) 05/21/25 05/21/25 05/21/25 14:30 14:30 14:30 WBC 13.00 H Hgb 15.6 H Hct 46.0 H Plt Count 149 L PT 13.5 H INR 1.20 Sodium 138 Potassium 4.1 BUN 37 H Creatinine 1.92 H Glucose 154 H Magnesium 1.8 Total Bilirubin 1.1 H AST 39 H ALT 26 Alkaline Phosphatase 29 L Lipase 38 Assessment and Plan - Problems (Diagnosis) (1) Ureteral stent present Current Visit: Yes Status: Acute (2) Acute cystitis Current Visit: No Status: Acute Plan: IV CEFEPIME GENTLE HYDRATION. DAILY LAB PT CONSULT CULTURE TAKEN. Qualifiers: Hematuria presence: with hematuria Qualified Code(s): N30.01 - Acute c ystitis with hematuria - Advance Directives Does patient have a Living Will: Yes Does patient have a Durable POA for Healthcare: No
[2025-05-21] MEDS: NACHLORIDE 0.45% 1,000 ML IV SCH (21:53)
[2025-05-22] MEDS: HEPARIN/D5W 25,000 UNIT/500 ML BAG IV SCH (01:36)
[2025-05-22 08:11] LABS: Absolute Lymphocytes (CBC) 0.7 K/uL (0.7-4.9); Hematocrit 39.0 % (36.0-45.0); Hemoglobin 13.0 g/dL (12.0-15.0); MCH 30.8 pg (27.0-35.0); MCHC 33.4 g/dL (32.0-36.0); MCV 92.3 fL (80-100); MPV 8.4 fL (7.6-11.3); Nucleated RBC Absolute Count 0.0 (0-0); Nucleated Red Blood Cells % 0.1 % (0-0); RBC Red Blood Cell Count 4.23 M/uL (3.86-4.86); White Blood Count 13.80 thou/uL (4.3-10.9)
[2025-05-22 08:21] LABS: Anion Gap 10.5 mEq/L (5.0-15.0); BUN Blood Urea Nitrogen 43.0 mg/dL (7-18); Glucose Level 112.0 mg/dL (74-106); Potassium 4.5 mEq/L (3.5-5.1)
[2025-05-22] MEDS: NACHLORIDE 0.45% 1,000 ML IV SCH (09:38)
[2025-05-22] MEDS: CEFEPIME 1 GM in NA CHLORIDE 0.9% 100 ML IV SCH (09:42)
[2025-05-22 10:51] LABS: Blood Morphology Comment NOT SEEN (NOT SEEN); Differential Total Cells Count 100; Segmented Neutrophils 74 % (40-80)
--- NOTE | 2025-05-22 11:06 | P.CNS ---
Date of Consult: 05/22/25 Chief Complaint: LOWER ABDOMEN PAIN History of Present Illness: Patient with PMH of HTN, presented with abdominal pain, found to have cystitis, patient denies chest pain, no palpitations, no syncope, no breathing problems, cardiology were consulted for elevated troponin. Allergies codeine Adverse Reaction (Verified 05/21/25 22:23) Chest pain/Sweating Home medications list reviewed: Yes Home Medications: Gabapentin 300 mg PO BID 03/14/19 Sertraline HCl 50 mg PO DAILY 03/14/19 Fenofibrate [Tricor*] 145 mg PO DAILY 12/01/22 Montelukast [Singulair*] 10 mg PO DAILY 01/10/24 Famotidine 40 mg PO DAILY 05/30/24 Cholecalciferol (Vitamin D3) [D3-50] 50 mcg PO DAILY 06/20/24 Dicyclomine [Bentyl*] 20 mg PO BID 06/20/24 Meclizine HCl 25 mg PO TIDP PRN 06/20/24 Mv-Mn/Folic AC/Calcium/Vit K1 [Women's 50 Plus Multivit Tab] 1 each PO DAILY 06/20/24 carvediloL [Coreg*] 6.25 mg PO BIDWM 06/20/24 Saccharomyces Boulardii [Florastor] 250 mg PO DAILY 08/09/24 Nitrofurantoin Monohyd/M-Cryst [Macrobid 100 mg Capsule] 100 mg PO DAILY #30 cap 08/14/24 Solifenacin Succinate [Vesicare] 10 mg PO DAILY #30 tab 03/19/25 Gabapentin 300 mg PO BID 05/21/25 - Past Medical/Surgical History Diabetic: No -: HTN -: NHL 2019 in remission -: Recurrent Cystitis/ Urinary Incontinence -: Left Knee OA -: UTIs -: over reactive bladder -: cdiff -: Hysterectomy -: Bladder stimulatory 2022 - Family History Mother History Unknown: Yes Medical History: Heart disease, Hypertension, Cancer Notes: Hodgkin lymphoma - Social History Smoking Status: Never smoker Alcohol use: No CD- Drugs: No Caffeine use: No Place of Residence: Home Review of Systems 10-point ROS is otherwise unremarkable Physical Examination Temp Pulse Resp BP Pulse Ox 100.1 F 95 H 16 103/49 L 98 05/22/25 08:00 05/22/25 08:00 05/22/25 08:00 05/22/25 08:00 05/22/25 08:00 General: Alert, In no apparent distress HEENT: Atraumatic, PERRLA, Mucous membr. moist/pink, EOMI, Sclerae nonicteric Neck: Supple, 2+ carotid pulse no bruit, No LAD, Without JVD or thyroid abnormality Respiratory: Clear to auscultation bilaterally, Normal air movement Cardiovascular: Regular rate/rhythm, Normal S1 S2 Gastrointestinal: Normal bowel sounds, No tenderness Musculoskeletal: No tenderness Integumentary: No rashes Neurological: Normal gait, Normal speech, Normal tone, Normal affect Lymphatics: No axilla or inguinal lymphadenopathy Laboratory Data (last 24 hrs) 05/21/25 05/21/25 05/21/25 14:30 14:30 14:30 WBC 13.00 H Hgb 15.6 H Hct 46.0 H Plt Count 149 L PT 13.5 H INR 1.20 Sodium 138 Potassium 4.1 BUN 37 H Creatinine 1.92 H Glucose 154 H Magnesium 1.8 Total Bilirubin 1.1 H AST 39 H ALT 26 Alkaline Phosphatase 29 L Lipase 38 - Problems (1) NSTEMI (non-ST elevated myocardial infarction) Current Visit: Yes Status: Acute Plan: Patient troponin mild elevated with no significant delta, Patient is septic with cystitis and worsening kidney function patient is not having any active chest pain she usually follow up with [facility] cardiology (Dr. Siegel) continue heparin drip for 48 hours this is most likely type 2 NM from infection continue to monitor on tele get echo
[2025-05-22] MEDS: NA CHLORIDE 0.9% 1,000 ML IV SCH (12:05)
[2025-05-22 13:14] LABS: Urine Crystals Unidentified Few /HPF (None Seen); Urine Culture Reflex Order REFLEXED; Urine Microscopic Reflex YN ORDER UMIC; Urine WBC Clump Many /HPF (None Seen); Urine Yeast (Budding) Moderate /HPF (None Seen)
--- NOTE | 2025-05-22 17:53 | P.PN ---
Subjective Date of Service: 05/22/25 Chief Complaint: TODAY LUQ PAIN. NO FEVER, WEAK Subjective: Improving SHE IS BETTER. FATIGUE LUQ PAIN ONCE. NO LOWER ABDOMEN PAIN TODAY. Review of Systems 10-point ROS is otherwise unremarkable General: Weakness, As per HPI Physical Examination - Vital Signs Temperature: 99.9 F Blood Pressure: 91/56 Pulse: 90 Respirations: 16 Pulse Ox (%): 98 - Physical Exam General: Oriented x3, Mild distress, Obese, Other (DEHYDRATION.) HEENT: Atraumatic, PERRLA, EOMI Neck: Supple, JVD not distended Respiratory: Clear to auscultation bilaterally, Normal air movement Cardiovascular: Regular rate/rhythm, Normal S1 S2 Gastrointestinal: Normal bowel sounds, No tenderness Musculoskeletal: No tenderness Integumentary: No rashes Neurological: Normal speech, Normal tone, Normal affect Lymphatics: No axilla or inguinal lymphadenopathy - Studies Medications List Reviewed: Yes Assessment And Plan - Current Problems (Diagnosis) (1) Ureteral stent present Current Visit: Yes Status: Acute (2) Acute cystitis Current Visit: No Status: Acute Plan: IV CEFEPIME GENTLE HYDRATION. DAILY LAB PT CONSULT CULTURE TAKEN. GRAM NEG SEPSIS ID PENDING. WILL WATCH FOR CHANGE OF ABX. Qualifiers: Hematuria presence: with hematuria Qualified Code(s): N30.01 - Acute cystitis with hematuria (3) Acute on chronic renal failure Current Visit: Yes Status: Acute Plan: HAS CREAT ELEVATION. BILATERAL HYDRONEPHROSIS IN CT I CALLED DR. RODRIGUEZ TO ASK TO SEE AND FOLLOW UP HIS PATIENT. CONSULT MANAGER [employer] ALSO. CONT IV FLUIDS. PROGNOSIS GUARDED.
[2025-05-22] MEDS: NA CHLORIDE 0.9% 1,000 ML IV ONE (18:46)
--- NOTE | 2025-05-22 20:43 | P.CNS ---
Date of Consult: 05/22/25 Reason for Consult: Complicated UTI Requesting Physician: Earl Almanza V Chief Complaint: TODAY LUQ PAIN. NO FEVER, WEAK History of Present Illness: 69-year-old woman seen [facility] as an inpatient with hypertension, asthma, presumptive neuropathy, GERD, and history of recurrent UTIs with refractory OAB LUTS and urge incontinence persistent despite InterStim implanted 11/2023, now with gross hematuria potentially secondary to cystitis, bladder lesion, bilateral hydronephrosis left greater than right, and 1.6 cm right upper pole complex renal cyst. Recommendation: Allow 4 to 5 days of resolution of presumptive cystitis before repeating ultrasound to assess for persistence of hydronephrosis and assess for resolution of creatinine back to baseline. Outpatient cystoscopy to evaluate the gross hematuria. Subsequent IV contrast CT evaluation of the right complex renal cystic lesion will be required. Voiding trial may be administered. 05/29/2024 urine culture Klebsiella pneumoniae resistant to ampicillin only 06/01/2024 renal bladder ultrasound: Impression: Hydronephrosis has resolved. Findings: 3.4 cm right renal cyst. Additional smaller right renal cyst. Bilateral extrarenal pelves. No hydronephrosis. Ward catheter within a collapsed bladder. Patient subsequently given a voiding trial but failed. 06/27/2024 creatinine 0.92 -diagnosed with MRSA and had a PICC line and was being treated with vancomycin up until Tuesday last week. The PICC line was removed on Tuesday. She has not had any more gross hematuria. - catheter urine culture today -addendum 07/17/2024 Klebsiella pneumoniae resistant to ampicillin only. Cephalexin 500 mg p.o. every 8 hours x 5 days sent with instructions to start 3 days prior to scheduled cystoscopy. 07/24/2024 CT abdomen renal protocol impression: Enhancement of the wall of the renal pelvis bilaterally can be seen with infection. Right mild to moderate hydronephrosis unchanged, but presence of extrarenal pelvis also. Left hydronephrosis has diminished and is mild. Findings: Several simple right renal cysts. Largest 3.3 cm. No left renal mass. 07/26/2024 cystoscopy revealed markedly friable mucosa with obvious gross hematuria and evident chronic cystitis. Left ureteral orifice slightly patulous in appearance, and right ureteral orifice orthotopic. Moderately trabeculated After giving her an opportunity to void for several minutes, patient was unable to produce more than a few drops of urine. As a result, a new 20 Icelandic urethral Ward catheter was inserted into her bladder with ease with 10 cc of sterile water placed in the balloon. -Cipro x 10 days to broaden antimicrobial therapy for the urothelial enhancement seen 08/14/24 s/p cystoscopy with left ureteral dilation and retrograde, ureteroscopy, 6 x 24 cm double-J left ureteral stent, right ureteroscopy, ureteral dilation and 6 x 26 Icelandic right ureteral stent placed. 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 10/31/2024 urodynamics: Detrusor instability associated incontinence at 75 cc with Pdet 47 to 51 cm H2O Continued poorly sustained and intermittent detrusor contractility throughout the remainder of the attempted filling phase with incontinence. Initial sensation 55 cc, initial desire 66 cc, normal desire 115 cc, strong desire 117 cc, capacity 122 cc. 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 No connection has been made. She presents today in follow-up suggesting she has some itching and burning in the vaginal area. She was given oxybutynin by Dr. Almanza for some discomfort in the region. She is concerned about possible UTI. She wonders when the catheter is going to be removed. -I again counseled the patient that since she has an InterStim in place, it would make most sense to try to see if reactivating it could potentially resolve her voiding dysfunction issues. -We will reach out again to the [employer] market survey representative to see if they might be able to work with the patient to reactivate and adjust the device and assess the stimulation achieved, and we may be able to give her a voiding trial thereafter if appropriate stimulation achieved 03/06/2025 urine culture Klebsiella oxytoca sensitive to Bactrim, Augmentin, fluoroquinolones orally. Ceftriaxone, gentamicin, Zosyn and meropenem IV. 03/19/2025 operative evaluation performed with cystoscopy, bilateral retrogrades and drainage assessment -determined to be adequate and not obstructed, bilateral ureteral stents extracted and urethral Ward catheter replaced 04/18/2025 renal ultrasound documented no hydronephrosis 05/13/2025 patient was scheduled for follow-up to determine further management of her catheter, but she canceled the appointment because her was apparently sick. In the interim, on 05/21/2025, she was seen via the emergency department where she since has been admitted with the following findings: 05/21/2025 WBC 13.0, hemoglobin 15.6, platelets 149, creatinine 1.92 with EGFR 28, troponin I 1302 05/22/2025 creatinine 3.04 with EGFR 16, troponin I 1419 05/21/2025 CT abdomen pelvis with IV contrast findings: Moderate bilateral hydroureteronephrosis with urothelial enhancement along the mid to distal bilateral ureters without evidence of calculi associated obstruction. Benign-appearing renal cortical cysts on the right. Bladder markedly distended despite Ward catheter being in place. Diffuse wall thickening and pericystic fat stranding noted. Diagnoses and recommendation: History of gross hematuria potentially secondary to cystitis/complicated UTI causing hydronephrosis, with enhancement of the barrera of the renal pelvis bilaterally consistent with pyelonephrosis, now resolved, but with persistent right hydronephrosis and mild left hydronephrosis with bilateral UVJ obstruction and suspected left UPJ obstruction with bilateral stents placed 08/14/2024 and removed after adequate drainage demonstrated 03/19/2025 with absence of hydronephrosis demonstrated on ultrasound 04/18/2025, now with evidence of complicated cystitis with ureteritis contributing to obstruction and recurrence of the bilateral hydronephrosis with PROSPER, apparently associated with urethral Ward catheter associated obstruction, complicated by Type 2 AMI - Patient now on IV cefepime - Will monitor for resolution of creatinine back to baseline over the course of the next 24 to 48 hours - If failure to significantly improve by p.m., may have to reconsider suitability for operative management via cystoscopy and replacement of bilateral ureteral stents. If patient too high risk for operative anesthetic event, consideration for bilateral percutaneous nephrostomy tubes must be given. - We will ask cardiology to comment on her suitability at this time for anesthesia. Urinary retention with chronic indwelling catheter and severe detrusor instability with suspected voiding dysfunction/DSD and InterStim in place, desiring to have the catheter removed - Given the recurrent issues of catheter associated complication and lower urinary tract infection that propagates to involve the upper tracts, she will be strongly encouraged to see what can be done with her implanted InterStim to restore her ability to void and potentially get rid of the Ward catheter. Addendum 05/23/2025: Creatinine declined to 1.78 05/24/2025: Creatinine 1.19, back to near baseline Assessment: Chronic indwelling Ward catheter dysfunction/obstruction in the setting of expected chronic bacteriuria, caused severe cystitis associated bilateral UPJ obstruction contributing to hydronephrosis, pyeonephrosis and PROSPER. -Planned cystoscopy with ureteral stenting deferred at this time. -Recommend repeat renal ultrasound to document resolution of hydronephrosis on Tuesday. - Strongly encouraged patient to reconsider further evaluation and management of her existing neuromodulation system/InterStim to see if it can restore her ability to void without a catheter. Alternatively, consider placement of a suprapubic catheter. Allergies codeine Adverse Reaction (Verified 05/21/25 22:23) Chest pain/Sweating Home medications list reviewed: Yes Home Medications: Gabapentin 300 mg PO BID 03/14/19 Sertraline HCl 50 mg PO DAILY 03/14/19 Fenofibrate [Tricor*] 145 mg PO DAILY 12/01/22 Montelukast [Singulair*] 10 mg PO DAILY 01/10/24 Famotidine 40 mg PO DAILY 05/30/24 Cholecalciferol (Vitamin D3) [D3-50] 50 mcg PO DAILY 06/20/24 Dicyclomine [Bentyl*] 20 mg PO BID 06/20/24 Meclizine HCl 25 mg PO TIDP PRN 06/20/24 Mv-Mn/Folic AC/Calcium/Vit K1 [Women's 50 Plus Multivit Tab] 1 each PO DAILY 06/20/24 carvediloL [Coreg*] 6.25 mg PO BIDWM 06/20/24 Saccharomyces Boulardii [Florastor] 250 mg PO DAILY 08/09/24 Nitrofurantoin Monohyd/M-Cryst [Macrobid 100 mg Capsule] 100 mg PO DAILY #30 cap 08/14/24 Solifenacin Succinate [Vesicare] 10 mg PO DAILY #30 tab 03/19/25 Gabapentin 300 mg PO BID 05/21/25 - Past Medical/Surgical History Diabetic: No -: HTN -: NHL 2018 in remission -: Recurrent Cystitis/ Urinary Incontinence -: Left Knee OA -: UTIs -: over reactive bladder -: cdiff -: Hysterectomy -: Bladder stimulatory 2022 - Family History Mother History Unknown: Yes Medical History: Heart disease, Hypertension, Cancer Notes: Hodgkin lymphoma - Social History Smoking Status: Never smoker Alcohol use: No CD- Drugs: No Caffeine use: No Place of Residence: Home Physical Examination Temp Pulse Resp BP Pulse Ox 99.9 F 90 16 91/56 L 98 05/22/25 17:53 05/22/25 17:53 05/22/25 17:53 05/22/25 17:53 05/22/25 17:53 - Problems (1) Acute on chronic renal failure Current Visit: Yes Status: Acute Qualifiers: Acute renal failure type: with acute tubular necrosis Chronic kidney disease stage: stage 3 (moderate) Chronic kidney disease stage 3 subtype: stage 3a (GFR 45-59) Qualified Code(s): N17.0 - Acute kidney failure with tubular necrosis; N18.31 - Chronic kidney disease, stage 3a (2) NSTEMI (non-ST elevated myocardial infarction) Current Visit: Yes Status: Acute (3) Acquired ureterovesical junction (UVJ) obstruction Current Visit: No Status: Acute (4) Acute cystitis Current Visit: No Status: Acute Qualifiers: Hematuria presence: with hematuria Qualified Code(s): N30.01 - Acute cystitis with hematuria (5) Bilateral hydronephrosis Current Visit: No Status: Acute (6) Urinary retention Current Visit: No Status: Acute Conclusions/Impression: see A&P in HPI Critical Care: No Time Spent Managing Pts care (In Minutes): 45
[2025-05-22 21:58] LABS: UR CREAT 67.0 mg/dL (20-320); UR PROTEIN 77.2 mg/dL (<11.9)
[2025-05-22 22:23] LABS: Uric Acid 5.5 mg/dL (2.6-6.0)
[2025-05-23] MEDS: ACETAMINOPHEN 500 MG TAB PO PRN (01:00)
--- NOTE | 2025-05-23 08:50 | ECHO ---
HEIGHT: 5 ft 5 in WEIGHT: 177 lb 0 oz DATE OF STUDY: 05/22/[address]: Earl Almanza MD 2-DIMENSIONAL: YES M.MODE: YES DOPPLER: YES COLOR FLOW: YES TDS: NO PORTABLE: YES DEFINITY: NO BUBBLE STUDY: NO DIAGNOSIS: BNP CARDIAC HISTORY: CATHERIZATION: NO SURGERY: NO PROSTHETIC VALVE: NO PACEMAKER: NO MEASUREMENTS (cm) DIASTOLIC (NORMALS) SYSTOLIC (NORMALS) IVSd 0.9 (0.6-1.2) LA Diam 2.3 (1.9-4.0) LVEF 55-60% LVIDd 3.6 (3.5-5.7) LVIDs 2.0 (2.0-3.5) %FS 45% LVPWd 1.3 (0.6-1.2) Ao Diam 3.0 (2.0-3.7) 2 DIMENSIONAL ASSESSMENT: RIGHT ATRIUM: NORMAL LEFT ATRIUM: NORMAL RIGHT VENTRICLE: NORMAL LEFT VENTRICLE: NORMAL TRICUSPID VALVE: TRACE OF TRICUSPID REGURGITATION MITRAL VALVE: TRACE OF MITRAL REGURGITATION PULMONIC VALVE: NORMAL AORTIC VALVE: NORMAL PERICARDIAL EFFUSION: NONE AORTIC ROOT: NORMAL LEFT VENTRICULAR WALL MOTION: NORMAL. DOPPLER/COLOR FLOW: GRADE I DIASTOLIC DYSFUNCTION. COMMENTS: 1. NORMAL LEFT VENTRICULAR SYSTOLIC FUNCTION, EJECTION FRACTION 55-60%, NORMAL WALL MOTION. 2. GRADE I DIASTOLIC DYSFUNCTION. 3. NORMAL FILLING PRESSURE. TECHNOLOGIST: IGNACIO CASTRO
--- NOTE | 2025-05-23 12:23 | P.PN ---
Subjective Date of Service: 05/23/25 Chief Complaint: TODAY LUQ PAIN. NO FEVER, WEAK Subjective: No new changes (DENIES CHEST PAIN) Review of Systems 10-point ROS is otherwise unremarkable Physical Examination - Vital Signs Temperature: 97.9 F Blood Pressure: 131/76 Pulse: 86 Respirations: 16 Pulse Ox (%): 95 - Physical Exam General: Alert, In no apparent distress HEENT: Atraumatic, PERRLA, EOMI Neck: Supple, JVD not distended Respiratory: Clear to auscultation bilaterally, Normal air movement Cardiovascular: Regular rate/rhythm, Normal S1 S2 Gastrointestinal: Normal bowel sounds, No tenderness Musculoskeletal: No tenderness Integumentary: No rashes Neurological: Normal speech, Normal tone, Normal affect Lymphatics: No axilla or inguinal lymphadenopathy - Studies Microbiology Data (last 24 hrs): 05/21/25 15:47 Blood - Blood Aerobic Blood Culture - Final 05/21/25 15:47 Blood - Blood Blood Culture Gram Stain - Final 05/21/25 15:47 Blood - Blood Anaerobic Blood Culture - Final 05/21/25 15:47 Blood - Blood Gram Stain - Final 05/21/25 16:14 Blood - Blood Aerobic Blood Culture - Final 05/21/25 16:14 Blood - Blood Blood Culture Gram Stain - Final 05/21/25 16:14 Blood - Blood Anaerobic Blood Culture - Final 05/21/25 16:14 Blood - Blood Gram Stain - Final Medications List Reviewed: Yes Assessment And Plan - Current Problems (Diagnosis) (1) NSTEMI (non-ST elevated myocardial infarction) Current Visit: Yes Status: Acute Plan: Patient troponin mild elevated with no significant delta, Patient is septic with cystitis and worsening kidney function patient is not having any active chest pain she usually follow up with [facility] cardiology (Dr. 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
--- NOTE | 2025-05-23 13:12 | P.PN ---
Subjective Date of Service: 05/23/25 Chief Complaint: TODAY LUQ PAIN. NO FEVER, WEAK Subjective: Improving SHE IS BETTER. FATIGUE LUQ PAIN ONCE. NO LOWER ABDOMEN PAIN TODAY. SHE IS HUNGRY NO CATH TO BE DONE. . Review of Systems 10-point ROS is otherwise unremarkable General: As per HPI Physical Examination - Vital Signs Temperature: 97.9 F Blood Pressure: 131/76 Pulse: 86 Respirations: 16 Pulse Ox (%): 95 - Physical Exam General: Mild distress HEENT: Atraumatic, PERRLA, EOMI Neck: Supple, JVD not distended Respiratory: Clear to auscultation bilaterally, Normal air movement Cardiovascular: Regular rate/rhythm, Normal S1 S2 Gastrointestinal: Normal bowel sounds, No tenderness Musculoskeletal: No tenderness Integumentary: No rashes Neurological: Normal speech, Normal tone, Normal affect Lymphatics: No axilla or inguinal lymphadenopathy - Studies Microbiology Data (last 24 hrs): 05/21/25 15:47 Blood - Blood Aerobic Blood Culture - Final 05/21/25 15:47 Blood - Blood Blood Culture Gram Stain - Final 05/21/25 15:47 Blood - Blood Anaerobic Blood Culture - Final 05/21/25 15:47 Blood - Blood Gram Stain - Final 05/21/25 16:14 Blood - Blood Aerobic Blood Culture - Final 05/21/25 16:14 Blood - Blood Blood Culture Gram Stain - Final 05/21/25 16:14 Blood - Blood Anaerobic Blood Culture - Final 05/21/25 16:14 Blood - Blood Gram Stain - Final Medications List Reviewed: Yes Assessment And Plan - Current Problems (Diagnosis) (1) Ureteral stent present Current Visit: Yes Status: Acute (2) Acute cystitis Current Visit: No Status: Acute Plan: IV CEFEPIME GENTLE HYDRATION. DAILY LAB PT CONSULT CULTURE TAKEN. GRAM NEG SEPSIS ID PENDING. WILL WATCH FOR CHANGE OF ABX. CULTURE PENDING STILL HAS FEVER MAY HAVE TO CHANGE ABX DEPENDING ON CS. SHE IS STABLE TO WAIT. I WILL BE OUT OF TOWN FOR 4 DAYS. HOSPITALIST WILL COVER. Qualifiers: Hematuria presence: with hematuria Qualified Code(s): N30.01 - Acute cystitis with hematuria (3) Acute on chronic renal failure Current Visit: Yes Status: Acute Plan: HAS CREAT ELEVATION. BILATERAL HYDRONEPHROSIS IN CT I CALLED DR. RODRIGUEZ TO ASK TO SEE AND FOLLOW UP HIS PATIENT. CONSULT DASHBOARD DEVELOPER ALSO. CONT IV FLUIDS. PROGNOSIS GUARDED. Qualifiers: Acute renal failure type: with acute tubular necrosis Chronic kidney disease stage: stage 3 (moderate) Chronic kidney disease stage 3 subtype: stage 3a (GFR 45-59) Qualified Code(s): N17.0 - Acute kidney failure with tubular necrosis; N18.31 - Chronic kidney disease, stage 3a
[2025-05-23 13:48] LABS: Anion Gap 8.2 mEq/L (5.0-15.0); BUN Blood Urea Nitrogen 35.0 mg/dL (7-18); Glucose Level 104.0 mg/dL (74-106); Potassium 4.2 mEq/L (3.5-5.1)
--- NOTE | 2025-05-23 14:41 | CON ---
Date of Consultation: 05/23/2025 Reason For Consultation: Elevated BUN and creatinine, fluid management. History Of Present Illness: This is a pleasant 69-year-old female with significant past medical hist ory of hypertension, bronchial asthma, GERD, chronic kidney disease, recurrent UTI, Ward dependent. Apparently, patient was in her regular state of health. The patient was recently admitted to the [facility] with UTI treated and recovered. The patient was discharged at that time back in February with crea tinine 1.2, GFR of 47. The patient came to the hospital again with nausea and vomiting, abdominal pa in, found to have elevation in BUN and creatinine with UTI. For that reason, patient was admitted. The patient apparently been taking Aleve 2 tablets every other day. The patient upon arrival to the hospital, patient had CT with contrast. Apparently, patient had refractory UTI. The patient had mul tiple complex cysts with hydronephrosis bilaterally. The patient at home being on as I mentioned, Al gloria, fenofibrate, nitrofurantoin. The patient was started on antibiotic. The patient upon presentat ion also found to have elevation in troponin. Diagnosis with elevation MO, possible the patient will need cardiac cath, echocardiogram, normal ejection fraction with diastolic dysfunction. Past Medical History: Includes: 1. Hypertension. 2. Hyperlipidemia. 3. GERD. 4. Bronchial asthma. 5. Chronic kidney disease, stage 3. Baseline creatinine 1.2, GFR 47 as of February 2025. 6. Recurrent UTI. 7. reflux. 8. Complex cyst. Past Surgical History: Includes left knee surgery, hysterectomy, bladder stimulator. Family History: Positive for hypertension, CAD, Hodgkin. Social History: Denied smoking. Denied drinking. Denied drugs abuse. Allergies: CODEINE. Home Medications: Include gabapentin, Aleve, sertraline, fenofibrate, Singulair, Pepcid, cholecalcif alden, , carvedilol, Carafate, nitrofurantoin, gabapentin. Review of Systems: Head and Neck: No red eye. No ear pain. GI: No nausea, no vomiting. : Has dysuria. SENIOR DRUPAL DEVELOPER: No vaginal discharge. Respiratory: No shortness of breath. Cardiovascular: No chest pain. Endocrine: No polydipsia. Skin: No rash. Physical Examination: Vital Signs: When I saw the patient, patient was lying in bed, comfortable. Vital signs: Blood pressure 130/61, pulse of 93. Chest: Clear to auscultation. Heart: S1, S2. Systolic murmur. Abdomen: Soft, nontender. Has Ward. Extremities: No edema. Neuro: Alert and oriented x3. Nonfocal. No tremor. Laboratory Data: WBC 13.8, hemoglobin 13, platelet 108. Upon presentation to the hospital, sodium 1 38, potassium 4.1, creatinine 1.9. GFR 28. Yesterday, creatinine 3, potassium 4.5. Sodium 139, bic arb 25, BUN 43, calcium 8.8. Troponin 1300. Today, lab data is still pending. Urinalysis, specific gravity more than 1.030, leukocyte more than 500, rbc's more than 50, wbc's more than 50. Culture i s still pending. The patient had CT with contrast on the , showing bilateral moderate hydronephr osis, benign renal cortical cyst, distended bladder. Ward was inserted. Assessment And Plan: 1. Acute kidney injury, multifactorial. a. Toxic acute tubular necrosis secondary to urinary tract infection. 2. Obstructive uropathy secondary to . 3. Contrast induced nephropathy. 4. ZIGGY secondary to nonsteroidal use. 5. Cardiorenal with marginal low blood pressure. a. I am going to bolus the patient with 1 L of normal saline and maintain the patient on IV fluid . The patient is still nonoliguric. No hyperkalemia or acidosis. I do not see the need for any monisha al replacement therapy. b. I agree with the Ward to relieve the obstruction. c. We will follow up with Urology. 6. Hypertension, controlled, optimal. Continue current treatment. 7. Hyperlipidemia with the presence of acute kidney injury. Discontinue nitrofurantoin. 8. Chronic kidney disease secondary to ZIGGY, chronic acute tubular necrosis with acute kidney injury. a. Discontinue fenofibrate, discontinue Aleve. b. We will send for basic workup. 9. Obstructive uropathy as by Urology. 10. Recurrent urinary tract infection, complicated with obstructive uropathy, complicated with sepsis . I going to continue antibiotic. We will follow up with primary. We will follow up with Urology. 11. Complex cyst. No need for intervention for the time being. 12. Non-ST elevation myocardial infarction. The patient may need cardiac cath. I had discussed with the patient risks, benefits, alternatives. We will continue hydration. If the patient need cardiac cath, the patient may worsen kidney function. Anyhow, this would be a temporary acute kidney injury , so we will proceed with . JUDD/ANAIS Voice ID: [id number] Report ID: [id number]
[2025-05-24 05:09] LABS: Absolute Lymphocytes (CBC) 1.2 K/uL (0.7-4.9); Hematocrit 30.9 % (36.0-45.0); Hemoglobin 10.7 g/dL (12.0-15.0); MCH 31.4 pg (27.0-35.0); MCHC 34.5 g/dL (32.0-36.0); MCV 91.0 fL (80-100); MPV 7.5 fL (7.6-11.3); Nucleated RBC Absolute Count 0.0 (0-0); Nucleated Red Blood Cells % 0.0 % (0-0); RBC Red Blood Cell Count 3.40 M/uL (3.86-4.86); White Blood Count 5.90 thou/uL (4.3-10.9)
[2025-05-24 05:34] LABS: Albumin 2.5 g/dL (3.4-5.0); Anion Gap 7.1 mEq/L (5.0-15.0); BUN Blood Urea Nitrogen 26.0 mg/dL (7-18); Glucose Level 96.0 mg/dL (74-106); Potassium 4.1 mEq/L (3.5-5.1); Thyroid Stimulating Hormone 1.63 uIU/mL (0.358-3.740); Uric Acid 3.5 mg/dL (2.6-6.0)
--- NOTE | 2025-05-24 07:35 | P.PN ---
Date of Service: 05/24/25 Subjective: no acute events overnight continues to improve each day Physical Exam: GEN: Alert, oriented, NAD CV: Regular rate and rhythm Pulm: Non-labored respirations on room air, clear bilaterally ABD: soft, nontender, nondistended Neuro: Normal speech, normal affect Ward replaced 05/22 Problem List: Sepsis secondary Proteus Bacteremia / UTI Recurrent complicated UTI with moderate Bilateral Hydroureteronephrosis Urinary retention with chronic indwelling catheter NSTEMI PROSPER on CKD3 Hypernatremia Hypertension GERD/IBS Hx of Non-Hodgkin's lymphoma Hx of a-fib Sepsis secondary Proteus Bacteremia / UTI Recurrent complicated UTI with moderate Bilateral Hydroureteronephrosis Urinary retention with chronic indwelling catheter CT abd/pelvis: Moderate bilateral hydroureteronephrosis with urothelial enhancement along the mid to distal bilateral ureters without evidence of calculi associated obstruction. Benign-appearing renal cortical cysts on the right. Bladder markedly distended despite Ward catheter being in place. Diffuse wall thickening and pericystic fat stranding noted Blood cultures positive for Proteus Species in all 4 bottles Urine culture pending Continue IV cefepime for now Urology is following continue IV Cefepime. If no significant improvement by evening, may need to consider surgical intervention via cystoscopy. If improving will need outpatient cystoscopy to further evaluation with subsequent IV contrast CT and possible voiding trial Monitor urine output. Monitor for active bleeding. Daily labs. Afebrile since yesterday. Ward replaced 05/22 NSTEMI Asymptomatic. No chest pain Troponins elevated, trended flat. Peaked at 1697. Elevated troponins likely demand ischemia secondary to infection Echo with normal EF and wall motion, grade 1 diastolic dysfunction Monitor on telemetry. s/p heparin drip; dc'd 05/22 Cardiology consulted. Recommend outpatient f/u continue asa 81 mg PROSPER on CKD3 Hypernatremia secondary to obstruction/uti Creatinine improving Continue to monitor renal function, electroyltes Nephrology consulted Hypertension GERD/IBS Hx of Non-Hodgkin's lymphoma Hx of a-fib confirm home meds, restart as appropriate Code: Full Dispo: Home, few days, may need IV abx for bacteremia Time Spent Managing Pts Care (In Minutes): 55
[2025-05-24] MEDS: CALCIUM CARBONATE CHEW 500MG TAB PO PRN (20:08)
--- NOTE | 2025-05-25 03:32 | PN ---
Date of Progress Note: 05/24/2025 Chief Complaint: Elevated BUN and creatinine level. Acute kidney injury. History Of Present Illness: The patient is a 69-year-old woman with significant past medical history of hypertension, bronchial asthma, GERD, chronic kidney disease stage 3, recent history of UTI, Fole y dependent. Apparently, the patient was in her usual state of health a few days prior to admission. The patient was recently admitted with UTI and was treated with antibiotics and recovered. The kristin okeefe was discharged from the hospital back in February with creatinine of 1.2. [facility], vomiting, and abdominal pain, was found to have elevated BUN and creatinine level and recurrence of UTI. Patient currently was taking Aleve every other day for trans fusion, leg pain, and muscle aches. The patient on arrival to the hospital had CT scan with contrast and she has recurrent and chronic urinary tract infection. The patient has had multiple complex cys t and hydronephrosis bilaterally. Review of Systems: Chest pain, palpitations. Physical Examination: Lungs: Clear to auscultation bilaterally. Heart: S1, S2. Abdomen: Soft. Extremities: No edema. Impression And Plan: 1. Acute kidney injury. The patient received IV fluids and renal function is gradually improving. a. Monitor electrolytes closely. 2. Urinary tract infection. a. Continue antibiotics. 3. History of hydronephrosis. a. The patient will follow up with Urology. 4. Hyperlipidemia. a. Monitor lipid panel. b. Avoid nitrofurantoin due to acute kidney injury. 5. Hypertension. Blood pressure controlled. 6. Obstructive uropathy. a. Recommend to consult Urology. 7. Recurrent urinary tract infection. Patient is on antibiotics. a. Wound culture of complex cyst. b. The patient will follow up with Urology. EB/MODL Voice ID: [id number] Report ID: [id number]
[2025-05-25 06:35] LABS: Albumin 2.7 g/dL (3.4-5.0); Anion Gap 9.9 mEq/L (5.0-15.0); BUN Blood Urea Nitrogen 17.0 mg/dL (7-18); Glucose Level 96.0 mg/dL (74-106); Potassium 3.9 mEq/L (3.5-5.1)
[2025-05-25] MEDS: MONTELUKAST 10 MG TAB PO SCH (08:53)
[2025-05-25] MEDS: FENOFIBRATE 160 MG TAB PO SCH (08:54)
[2025-05-25] MEDS: FAMOTIDINE 20 MG TAB PO SCH (08:54)
[2025-05-25] MEDS: SERTRALINE HCL 50 MG TAB PO SCH (08:54)
[2025-05-25] MEDS: DICYCLOMINE HCL 10 MG CAP PO SCH (08:54)
--- NOTE | 2025-05-25 09:39 | P.PN ---
Date of Service: 05/25/25 Subjective: feeling slightly better today no events overnight No further fevers since 05/23 Physical Exam: GEN: Alert, oriented, NAD CV: Regular rate and rhythm Pulm: Non-labored respirations on room ai ABD: soft, nontender, nondistended Carver replaced 05/22 Problem List: Sepsis secondary Proteus Bacteremia / UTI Recurrent complicated UTI with moderate Bilateral Hydroureteronephrosis Urinary retention with chronic indwelling catheter NSTEMI PROSPER on CKD3 Hypernatremia Hypertension GERD/IBS Hx of Non-Hodgkin's lymphoma Hx of a-fib Sepsis secondary Proteus Bacteremia / UTI Recurrent complicated UTI with moderate Bilateral Hydroureteronephrosis Urinary retention with chronic indwelling catheter CT abd/pelvis: Moderate bilateral hydroureteronephrosis with urothelial enhancement along the mid to distal bilateral ureters without evidence of calculi associated obstruction. Benign-appearing renal cortical cysts on the right. Bladder markedly distended despite Carver catheter being in place. Diffuse wall thickening and pericystic fat stranding noted Creatinine improving daily. Close to normal Urology is following Given her improvement plan is to get renal u/s Tuesday to re-assess hydro No plan for cystoscopy with stenting at this time. Recommends patient reconsider further eval of her existing neuromodulation system/Interstim to see if it can restore her ability to void without catheter and reduce catheter associated UTIs. Alternatively consider suprapublic catheter. Blood Cx (05/21): Proteus Mirabilis - yoder-sensitive Urine culture pending Continue IV cefepime for now. needs minimum 1 week IV abx for GNR bacteremia. May benefi from 10-14 day course given chronic indwelling carver NSTEMI Asymptomatic. No chest pain Troponins elevated, trended flat. Peaked at 1697. Elevated troponins likely demand ischemia secondary to infection Echo with normal EF and wall motion, grade 1 diastolic dysfunction Monitor on telemetry. s/p heparin drip; dc'd 05/22 continue asa 81 mg Cardiology consulted. Recommend outpatient f/u. No further work up PROSPER on CKD3 Hypernatremia secondary to obstruction/uti Creatinine improving Continue to monitor renal function, electroyltes Nephrology consulted Hypertension GERD/IBS Hx of Non-Hodgkin's lymphoma Hx of a-fib confirm home meds, restart as appropriate Code: Full Dispo: Home, few days, may need IV abx for bacteremia on dc Time Spent Managing Pts Care (In Minutes): 55
[2025-05-25] MEDS: GABAPENTIN 300 MG CAP PO SCH (20:45)
[2025-05-25] MEDS: HYDRALAZINE HCL 20 MG/ML VIAL IV PRN (22:31)
--- NOTE | 2025-05-26 03:22 | PN ---
Date of Progress Note: 05/25/2025 Chief Complaint: . Acute kidney injury. Subjective: The patient is a 69-year-old woman with significant past medical history of hypertension and bronchial asthma, GERD, chronic kidney disease stage 3, recent history of UTI, Ward dependent. The patient was recently admitted with UTI, was treated with antibiotics and UTI resolved. __ discharged from the hospital back in February and creatinine level was 1.2. The patient came to the [facility] complaining of nausea, vomiting, abdominal pain, . The patient on arriva l to the hospital had CT scan with contrast. She has recurrent and chronic urinary tract infection. The patient has had multiple complex cyst bilaterally. Review of Systems: Denies chest pain, palpitations. Physical Examination: Lungs: Clear to auscultation bilaterally. Heart: S1, S2. Abdomen: Soft. Extremities: No edema. Impression And Plan: 1. Acute kidney injury. Monitor electrolytes closely. Avoid nephrotoxic medication. 2. Urinary tract infection. Continue antibiotics. 3. History of hydronephrosis. The patient will follow up with Urology. 4. Hyperlipidemia. Monitor lipid panel. Avoid nitrofurantoin due to acute kidney injury. 5. Hypertension. Blood pressure, controlled. 6. Obstructive uropathy. Recommend to consult Urology. 7. Recurrent urinary tract infection. Monitor urine output. Continue antibiotics. BOYD/ANAIS Voice ID: [id number] Report ID: [id number]
[2025-05-26 06:18] LABS: Hematocrit 33.2 % (36.0-45.0); Hemoglobin 11.4 g/dL (12.0-15.0); MCH 31.0 pg (27.0-35.0); MCHC 34.4 g/dL (32.0-36.0); MCV 90.2 fL (80-100); MPV 8.0 fL (7.6-11.3); RBC Red Blood Cell Count 3.68 M/uL (3.86-4.86); White Blood Count 5.90 thou/uL (4.3-10.9)
[2025-05-26 06:24] LABS: Albumin 2.6 g/dL (3.4-5.0); Anion Gap 11.2 mEq/L (5.0-15.0); BUN Blood Urea Nitrogen 17.0 mg/dL (7-18); Glucose Level 93.0 mg/dL (74-106); Magnesium 1.6 mg/dL (1.6-2.4); Potassium 3.2 mEq/L (3.5-5.1)
--- NOTE | 2025-05-26 11:34 | P.PN ---
Date of Service: 05/26/25 Subjective: no events overnight tolerating IV abx without issues vitals stable afebrile Physical Exam: GEN: Alert, oriented, NAD CV: Regular rate and rhythm Pulm: Non-labored respirations on room ai ABD: soft, nontender, nondistended Ward replaced 05/22 Problem List: Sepsis secondary Proteus Bacteremia / UTI Recurrent complicated UTI with moderate Bilateral Hydroureteronephrosis Urinary retention with chronic indwelling catheter NSTEMI PROSPER on CKD3 Hypernatremia Hypertension GERD/IBS Hx of Non-Hodgkin's lymphoma Hx of a-fib Sepsis secondary Proteus Bacteremia / UTI Recurrent complicated UTI with moderate Bilateral Hydroureteronephrosis Urinary retention with chronic indwelling catheter CT abd/pelvis: Moderate bilateral hydroureteronephrosis with urothelial enhancement along the mid to distal bilateral ureters without evidence of calculi associated obstruction. Benign-appearing renal cortical cysts on the right. Creatinine improving daily. Close to normal Dr. Us, Urology is following Given her improvement plan is to get renal u/s Tuesday to re-assess hydro No plan for cystoscopy with stenting at this time. Recommends patient reconsider further eval of her existing neuromodulation system/Interstim to see if it can restore her ability to void without catheter and reduce catheter associated UTIs. Alternatively consider suprapublic catheter. Urine Cx (05/22): Proteus Mirabilis resistant to Nitrofurantoin/Tetracycline Blood Cx (05/21): Proteus Mirabilis; yoder-sensitive Continue IV cefepime (05/22-) needs minimum 1 week IV abx for GNR bacteremia. May benefit from 14 day course given chronic indwelling Ward / history picc ordered NSTEMI Asymptomatic. No chest pain Troponins elevated, trended flat. Peaked at 1697. Elevated troponins likely demand ischemia secondary to infection Echo with normal EF and wall motion, grade 1 diastolic dysfunction Monitor on telemetry. s/p heparin drip; dc'd 05/22 continue asa 81 mg Cardiology consulted. Recommend outpatient f/u. No further work up PROSPER on CKD3 Hypernatremia secondary to obstruction/uti Creatinine improving Continue to monitor renal function, electroyltes Nephrology consulted Hypertension GERD/IBS Hx of Non-Hodgkin's lymphoma Hx of a-fib confirm home meds, restart as appropriate Code: Full Dispo: Home ~Tuesday with home health - IV abx for bacteremia on dc Time Spent Managing Pts Care (In Minutes): 55
--- NOTE | 2025-05-26 18:59 | RAD REPORT ---
EXAM: Chest Single View HISTORY: 69 years Female PICC line placement COMPARISON: 02/26/2025 FINDINGS: LUNGS/PLEURA: The lungs are clear. No pleural effusions or pneumothorax. No pulmonary edema. CARDIAC/MEDIASTINUM: The cardiac silhouette is within normal limits. UPPER ABDOMEN: No significant abnormality. BONES: No acute abnormality. LINES/TUBES/OTHER: Right subclavian approach PICC with tip overlying the SVC in satisfactory position . IMPRESSION: No evidence of acute cardiopulmonary disease. PICC in satisfactory position.
[2025-05-26] MEDS: Mupirocin NASAL 2 APPL/1 GM TUBE NAS SCH (20:51)
--- NOTE | 2025-05-27 01:47 | PN ---
Date of Progress Note: 05/26/2025 Chief Complaint: Acute kidney injury. Subjective: The patient is a 69-year-old woman with significant past medical history of hypertension , bronchial asthma, GERD, chronic kidney disease stage 3, recent history of UTI. She is Ward depend ent. The patient was recently admitted with UTI, was treated with antibiotics and UTI resolved. The patient was discharged from the hospital back in February and creatinine level was 1.2. The patient came to the hospital complaining of nausea, vomiting, abdominal pain. She was found to have urinary trac t infection. The patient also has multiple complex cysts bilaterally. Review of Systems: Denies chest pain, palpitation. Physical Examination: Lungs: Clear to auscultation bilaterally. Heart: S1, S2. Abdomen: Soft. Extremities: No edema. Impression And Plan: 1. Acute kidney injury. Monitor electrolytes closely. Continue IV fluids. Avoid nephrotoxic medica tion. 2. Urinary tract infection. Continue antibiotics. 3. History of hydronephrosis. The patient will follow up with Urology. 4. Hyperlipidemia. Monitor lipid panel. 5. Hypertension. Blood pressure controlled. 6. Obstructive uropathy. Continue follow up with Urology. Avoid nitrofurantoin due to acute kidney injury. 7. Urinary tract infection. The patient is on antibiotics. BOYD/MODL Voice ID: [id number] Report ID: [id number]
[2025-05-27 05:58] LABS: Albumin 2.7 g/dL (3.4-5.0); Anion Gap 8.3 mEq/L (5.0-15.0); BUN Blood Urea Nitrogen 24.0 mg/dL (7-18); Glucose Level 90.0 mg/dL (74-106); Potassium 3.3 mEq/L (3.5-5.1)
[2025-05-27] MEDS: CEFTRIAXONE 2,000 MG in NA CHLORIDE 0.9% 100 ML IV SCH (09:28)
--- NOTE | 2025-05-27 09:34 | RAD REPORT ---
EXAMINATION: US RETROPERITONEUM CLINICAL INDICATION: f/u bilateral hydroureteronephrosis TECHNIQUE: Real-time ultrasonography of the abdomen was performed. COMPARISON: 05/21/2025 FINDINGS: RIGHT KIDNEY: Right renal length measurement: 11.3 cm. Echogenicity is normal. No calculus or solid mass. Similar moderate right-sided hydronephrosis . Benign right upper pole renal cyst measuring 4 cm. LEFT KIDNEY: Left renal length measurement: 10.5 cm. Echogenicity is normal. No calculus or solid m ass. Mild left-sided hydronephrosis. . ADDITIONAL FINDINGS: N/A IMPRESSION: Moderate right and mild left hydronephrosis. Benign right upper pole renal cyst.
--- NOTE | 2025-05-27 10:16 | P.PN ---
Date of Service: 05/27/25 Subjective: feeling better today no events overnight afebrile Physical Exam: GEN: Alert, oriented, NAD CV: Regular rate and rhythm Pulm: Non-labored respirations on room ai ABD: soft, nontender, nondistended Ward replaced 05/22 Problem List: Sepsis secondary Proteus Bacteremia / UTI Recurrent complicated UTI with moderate Bilateral Hydroureteronephrosis Urinary retention with chronic indwelling catheter NSTEMI PROSPER on CKD3 Hypernatremia Hypertension GERD/IBS Hx of Non-Hodgkin's lymphoma Hx of a-fib Sepsis secondary Proteus Bacteremia / UTI Recurrent complicated UTI with moderate Bilateral Hydroureteronephrosis Urinary retention with chronic indwelling catheter CT abd/pelvis: Moderate bilateral hydroureteronephrosis with urothelial enhancement along the mid to distal bilateral ureters without evidence of calculi associated obstruction. Benign-appearing renal cortical cysts on the right. Creatinine improving daily. Close to normal Dr. Us, Urology is following No plan for cystoscopy with stenting at this time. Recommends patient reconsider further eval of her existing neuromodulation system/Interstim to see if it can restore her ability to void without catheter and reduce catheter associated UTIs. Alternatively consider suprapublic catheter. Urine Cx (05/22): Proteus Mirabilis resistant to Nitrofurantoin/Tetracycline Blood Cx (05/21): Proteus Mirabilis; yoder-sensitive IV cefepime (05/22-05/26) switched to IV rocephin (05/27-) picc line placed for IV antibiotics. Patient to complete 2 week total course. Repeat renal ultrasound today showed some improvement. Read as moderate right and mild left hydronephrosis. discussed with Dr. Us - possible stent tomorrow 05/28 NPO except clears after midnight, NPO after tomorrow noon NSTEMI Asymptomatic. No chest pain Troponins elevated, trended flat. Peaked at 1697. Elevated troponins likely demand ischemia secondary to infection Echo with normal EF and wall motion, grade 1 diastolic dysfunction s/p heparin drip; dc'd 05/22 continue asa 81 mg Cardiology consulted. Recommend outpatient f/u. No further work up PROSPER on CKD3 Hypernatremia secondary to obstruction/uti Creatinine improving Continue to monitor renal function, electroyltes Nephrology consulted Hypertension GERD/IBS Hx of Non-Hodgkin's lymphoma Hx of a-fib confirm home meds, restart as appropriate Code: Full Dispo: Home ~Tuesday vs Tuesdaywith home health - IV abx for bacteremia on dc may need stent per Dr. Us prior to dc Time Spent Managing Pts Care (In Minutes): 45
--- NOTE | 2025-05-28 00:19 | PN ---
Date of Progress Note: 05/27/2025 Chief Complaint: Acute kidney injury on chronic kidney disease. Subjective: The patient is a 69-year-old woman with significant past medical history of hypertension , bronchial asthma, GERD, chronic kidney disease stage 3, recent history of UTI, obstructive uropathy , chronic hydronephrosis. She is Ward dependent. She was recently admitted with UTI, was treated w ith antibiotics, and UTI resolved. The patient was discharged from the hospital back in February and crea tinine level was 1.2. The patient is admitted to the hospital because of abdominal pain, nausea, vom iting. She was found to have urinary tract infection. She has history of multiple complex cysts jass aterally. She is on IV fluids for acute kidney injury due to nonoliguric ATN and prerenal azotemia. Renal function is stabilizing. CT scan, stone protocol, did not show stones, although there is lunchroom attendant lashawn hydronephrosis. Review of Systems: Denies chest pain, palpitations. Physical Examination: Lungs: Clear to auscultation bilaterally. Heart: S1, S2. Abdomen: Soft. Extremities: No edema. Impression And Plan: 1. Acute kidney injury. Continue IV fluids. Renal function is gradually improving. Avoid nephrotox ic medication. 2. Urinary tract infection, on antibiotics. Continue current treatment. 3. History of hydronephrosis. The patient will follow up with Urology. 4. Hyperlipidemia. Monitor lipid panel. 5. Hypertension. Blood pressure controlled. Continue current treatment. 6. Obstructive uropathy. Avoid nitrofurantoin due to acute kidney injury. Continue follow up with Xenia white. BOYD/ANAIS Voice ID: [id number] Report ID: [id number]
[2025-05-28 04:31] LABS: Hematocrit 31.2 % (36.0-45.0); Hemoglobin 10.9 g/dL (12.0-15.0); MCH 31.4 pg (27.0-35.0); MCHC 34.9 g/dL (32.0-36.0); MCV 89.8 fL (80-100); MPV 7.1 fL (7.6-11.3); RBC Red Blood Cell Count 3.47 M/uL (3.86-4.86); White Blood Count 5.70 thou/uL (4.3-10.9)
[2025-05-28 04:49] LABS: Albumin 2.6 g/dL (3.4-5.0); Anion Gap 7.4 mEq/L (5.0-15.0); BUN Blood Urea Nitrogen 24.0 mg/dL (7-18); Glucose Level 93.0 mg/dL (74-106); Potassium 3.4 mEq/L (3.5-5.1)
--- NOTE | 2025-05-28 13:14 | P.PN ---
Subjective Date of Service: 05/28/25 Chief Complaint: SP UTI, HYDRONEPHROSIS, ON IV ABX Subjective: Improving I WAS OUT OF TOWN UNTIL THIS AM. SHE IS LOT BETTER. SHE IS ON IV ABX. DR. RODRIGUEZ WILL DO SCOPE AND STENT POSSIBLY TODAY. Review of Systems 10-point ROS is otherwise unremarkable General: Weakness, As per HPI Physical Examination - Vital Signs Temperature: 98.5 F Blood Pressure: 126/61 Pulse: 63 Respirations: 16 Pulse Ox (%): 97 - Physical Exam General: In no apparent distress, Oriented x3 HEENT: Atraumatic, PERRLA, EOMI Neck: Supple, JVD not distended Respiratory: Clear to auscultation bilaterally, Normal air movement Cardiovascular: Regular rate/rhythm, Normal S1 S2 Gastrointestinal: Normal bowel sounds, No tenderness Musculoskeletal: No tenderness Integumentary: No rashes Neurological: Normal speech, Normal tone, Normal affect Lymphatics: No axilla or inguinal lymphadenopathy - Studies Medications List Reviewed: Yes Assessment And Plan - Current Problems (Diagnosis) (1) Ureteral stent present Current Visit: Yes Status: Acute (2) Acute cystitis Current Visit: No Status: Acute Plan: RECURRENT UTI SHE IS GROWING PROTEUS FROM URINE AND BLOOD. S.TO LEVAQUIN SHE WILL BE OKAY WITH ORAL MEDS LEVAQUIN IS ABSORBED 100% AND HAS GOOD RENAL CONCENTRATION. Qualifiers: Hematuria presence: with hematuria Qualified Code(s): N30.01 - Acute cystitis with hematuria (3) Acute on chronic renal failure Current Visit: Yes Status: Acute Plan: HAS CREAT ELEVATION. BILATERAL HYDRONEPHROSIS IN CT I CALLED DR. RODRIGUEZ TO ASK TO SEE AND FOLLOW UP HIS PATIENT. CONSULT ACCOUNTS RECEIVABLE ACCOUNTANT ALSO. CONT IV FLUIDS. PROGNOSIS GUARDED. Qualifiers: Acute renal failure type: with acute tubular necrosis Chronic kidney disease stage: stage 3 (moderate) Chronic kidney disease stage 3 subtype: stage 3a (GFR 45-59) Qualified Code(s): N17.0 - Acute kidney failure with tubular necrosis; N18.31 - Chronic kidney disease, stage 3a
[2025-05-28] MEDS: Ringers Lactate 1,000 ML IV ONE (15:24)
[2025-05-28] MEDS ORDERED: ONDANSETRON 4 MG/2 ML VIAL ONE (16:16)
[2025-05-28] MEDS ORDERED: LIDOCAINE 1% MPF 5 ML VIAL ONE (16:16)
[2025-05-28] MEDS ORDERED: Mastisol Adhesive Liq ONE (16:59)
[2025-05-28] MEDS ORDERED: FENTANYL CITR 100 MCG/2 ML ONE (16:59)
[2025-05-28] MEDS ORDERED: KETOROLAC 30 MG/ML INJ ONE (17:00)
[2025-05-28] MEDS ORDERED: GLYCOPYRROLATE 0.2 MG/ML SYR ONE (17:00)
--- NOTE | 2025-05-28 17:56 | P.OP ---
Date of Service: 05/28/25 Preoperative diagnoses: Complicated UTI/severe cystitis Bilateral UVJ obstruction Bilateral hydronephrosis Acute kidney injury, resolved Gross hematuria Chronic indwelling urethral Ward catheter Remote h/o InterStim neuromodulation placement Postoperative diagnoses: Complicated UTI/severe cystitis Bilateral UVJ obstruction Bilateral hydronephrosis Acute kidney injury, resolved Gross hematuria Chronic indwelling urethral Ward catheter Remote h/o InterStim neuromodulation placement Principal procedures: Cystoscopy Bilateral retrograde pyelography Left 7 [place] by 24 cm double-J ureteral stent placement Right 7 [place] by 26 cm double-J ureteral stent placement 18 [place] urethral Ward catheter replacement Indications for procedure: 69-year-old woman with history of gross hematuria potentially secondary to cystitis/complicated UTI causing hydronephrosis, with enhancement of the barrera of the renal pelvis bilaterally consistent with pyelonephrosis, now resolved, but with persistent right hydronephrosis and mild left hydronephrosis with bilateral UVJ obstruction and suspected left UPJ obstruction with bilateral stents placed 08/14/2024 and removed after adequate drainage demonstrated 03/19/2025 with absence of hydronephrosis demonstrated on ultrasound 04/18/2025, now with evidence of complicated cystitis causing bilateral UVJ obstruction contributing to hydronephrosis, pyeonephrosis and PROSPER due to chronic indwelling urethral Ward catheter dysfunction/obstruction in the setting of expected chronic bacteriuria. 05/24/2025: Creatinine 1.19, back to near baseline, which continued to improve over the next several days, but persistence of the hydronephrosis was noted 05/27/2025. Procedure note: The patient was consented in the preoperative holding area prior to being transferred to the operative suite where general anesthesia was induced. She had been given ceftriaxone IV antimicrobial therapy on the floor as an admitted inpatient. Pneumoboots were provided for DVT prophylaxis. The indwelling urethral Ward catheter was removed, and her genitalia was prepped with Hibiclens and draped in standard fashion after being placed in the lithotomy position. The 22 [place] rigid cystoscope was used to traverse the urethra and into the bladder. The bladder was decompressed of fluid and urine and then surveyed with normal saline as irrigation fluid. Clear evidence of contracted nature of the bladder with the impression of the catheter balloon and distal tip of the catheter beyond the balloon evident in the dome of the bladder despite filling with saline. The mucosa was still displaying a degree of mild chronic cystitis, and there was a degree of hematuria with filling of the bladder. I cannulated the left ureteral orifice with a 5 [place] ureteral access catheter and encountered some stenotic obstruction within 1 to 2 cm of the orifice opening. As such, I performed a retrograde pyelogram. Left retrograde pyelography: Using a 70: 30 mixture of Omnipaque and saline, contrast was injected via the lumen of the 5 [place] ureteral access catheter. This did propagate into the distal and slowly into the mid ureter with delayed retrograde transit requiring a separate bolus of contrast in order to deliver it into the renal pelvis and calyces after I advance the 5 [place] ureteral access catheter past the initial point of obstruction encountered and into the mid distal ureter. I then advanced the sensor wire via the 5 [place] ureteral access catheter successfully coiling it within the upper pole calyx of the left kidney. Over the sensor wire, I passed a 7 [place] by 24 cm double-J ureteral stent successfully, leaving the stent on a tether, and a coil was formed fluoroscopically in the upper pole with 1 cystoscopically formed in the bladder. I then removed the cystoscope leaving the tether for the stent in place, and I reintubated the urethra with the cystoscope and this time targeted the right ureteral orifice. Similarly, I was able to place a 5 [place] ureteral access catheter into the right ureteral orifice to perform a retrograde pyelogram. Right retrograde pyelography: Using a 70: 30 mixture of Omnipaque and saline, contrast was injected via the lumen of the 5 [place] ureteral access catheter. This time, on the right side, it did propagate up the distal into the mid and proximal ureter before entering the renal pelvis and calyces with only mild hydronephrosis noted. I passed a sensor wire via the 5 [place] ureteral access catheter into the collecting system. I subsequently passed a 7 [place] by 26 cm double-J ureteral stent over the wire and coiled the stent in the upper pole with an additional coil formed cystoscopically within the bladder. The stent was left on its tether. I then remove the cystoscope and placed a new 18 [place] Ward catheter into her bladder with ease with 15 cc of sterile water in the balloon. I then secured the stent tethers to the catheter using Mastisol and Steri-Strips. The catheter was connected to a floor bag and the patient was taken out of the lithotomy position. She was then awakened from general anesthesia before being trans ferred to a stretcher. She was then transferred to the recovery room in good condition. Complications: None Discharge disposition: Given the recurrent UVJ obstruction associated with the development of acute cystitis due to obstruction of the urethral Ward catheter, I counseled the patient that in an effort to use the InterStim to restore her ability to void would decrease her risk of future infection significantly if successful. She was incredibly dismissive of that consideration, as she has been in these discussions held in the office in the past. Alternatively, I explained that while we could place a suprapubic catheter, this still runs the risk of infection because of the simple presence of a foreign body in the bladder. While the risk of significant infection may be lower, it yet remains. Recommend follow-up between 10 to 14 days from now for removal and exchange of her urethral Ward catheter along with the attached tethered stents placed bilaterally. She should be on antimicrobial therapy with Levaquin for the next 14 days. Subsequent follow-up should be established in about 2 to 3 months with a renal ultrasound obtained about a week before the follow-up appointment to ensure continued resolution of the hydronephrosis. We can discuss at that time suprapubic catheter versus moving forward with activating the InterStim device again.
[2025-05-28 18:03] VITALS: O2SAT 98
--- NOTE | 2025-05-28 18:09 | RAD REPORT ---
EXAM:Urethrocystogrphy Retrograde HISTORY: STENT PLCMNT COMPARISON: None Fluoroscopy time 0.31 minutes
--- NOTE | 2025-05-29 02:55 | PN ---
Date of Progress Note: 05/28/2025 Chief Complaint: Acute kidney injury on chronic kidney disease. Subjective: The patient is a 69-year-old woman with significant past medical history of hypertension , bronchial asthma, GERD, chronic kidney disease stage 3, recent history of recurrent UTI, obstructiv e uropathy, bilateral hydronephrosis. She is Ward dependent. She is admitted for UTI and is on ant ibiotics. She is undergoing workup with Urology, and she is scheduled to have cystoscopy with stent placement. Review of Systems: Denies chest pain, palpitations. Physical Examination: Lungs: Clear to auscultation bilaterally. Heart: S1, S2. Abdomen: Soft, benign. Extremities: No edema. Impression And Plan: 1. Acute kidney injury. Continue IV fluids. Renal function is gradually improving. The patient dev eloped prerenal azotemia and nonoliguric acute tubular necrosis. The patient has obstructive uropath y and is to have a procedure for bilateral hydronephrosis. 2. Hypertension. Continue blood pressure medication. 3. Obstructive uropathy. Avoid nitrofurantoin due to acute kidney injury. Continue follow up with Xenia white. BOYD/ANAIS Voice ID: [id number] Report ID: [id number]
[2025-05-29 04:02] VITALS: BMI 26.8
[2025-05-29 08:32] VITALS: BP 168/72; TEMP 98.1
[2025-05-29] MEDS: POTASSIUM CL SA 10 MEQ TAB PO SCH (09:14)
[2025-05-29] MEDS: VALSARTAN 80 MG TAB PO SCH (09:15)
--- NOTE | 2025-05-29 15:45 | PN ---
Date of Progress Note: 05/29/2025 Subjective: The patient was admitted to the hospital with acute kidney injury and UTI. The patient' s upon arrival to the hospital creatinine 1.9, acute kidney injury secondary to poor perfusion ATN. Physical Examination: Vital Signs: When I saw the patient; blood pressure 168/72, pulse of 63, afebrile. Chest: Clear to auscultation. Heart: S1, S2. Regular. Abdomen: Soft, nontender. Extremity: No edema. Neurologic: Alert. No focality. Laboratory Data: Sodium 144, potassium 3.4, bicarb 28, BUN 24, creatinine 0.9, calcium 8.7, phosphor us 3.6, hemoglobin 10.9. Current Medications: The patient on include; 1. . 2. Ceftriaxone. 3. Fenofibrate. 4. Carvedilol 6.25. 5. Valsartan 80. 6. Zoloft. 7. Pepcid. 8. KCl. Assessment And Plan: 1. Acute kidney injury secondary to poor perfusion ATN. Continued to recover, back to baseline. The patient cleared from the Renal standpoint for discharge planning. 2. Hypertension. Increase Diovan to 160. We will follow up the patient. 3. Hypokalemia, status post supplement. We will monitor. 4. Complex cyst, stable. 5. Urinary tract infection, status post treatment recovered, secondary to Proteus mirabilis. Continu e current antibiotic. The patient okay to be switched to levofloxacin. As outpatient, we will follow up. VANESSA Voice ID: [id number] Report ID: [id number]
--- NOTE | 2025-05-29 21:34 | P.DS ---
Admission Date: 05/21/25 Discharge Date: 05/29/25 Disposition: ROUTINE DISCHARGE Discharge Condition: FAIR Reason for Admission: SP UTI, HYDRONEPHROSIS, ON IV ABX - Problems (1) Ureteral stent present Status: Acute (2) Acute cystitis Status: Acute Qualifiers: Hematuria presence: with hematuria Qualified Code(s): N30.01 - Acute cystitis with hematuria (3) Acute on chronic renal failure Status: Acute Qualifiers: Acute renal failure type: with acute tubular necrosis Chronic kidney disease stage: stage 3 (moderate) Chronic kidney disease stage 3 subtype: stage 3a (GFR 45-59) Qualified Code(s): N17.0 - Acute kidney failure with tubular necrosis; N18.31 - Chronic kidney disease, stage 3a Brief History of Present Illness: MONCHO HAS HAD RECURRENT UTI, MANAGED BY DR RODRIGUEZ NOW. SHE HAS HAD RENAL STENTS FOR STONES, HAS HAD SEVERE C DIFF COLIITS BECAUSE OF ANTIBIOTICS GIVEN BY [facility] ON DAILY BASIS FROM [place]. SHE HAD SEVERE C DIFF WHERE SHE WAS SEPTIC AND ONLY IMPROVED AFTER VANCOMYCIN PERRECTAL WITH USE OF FOLE CATHETER. SHE HAD ILEUS AT THAT TIME AND WAS NOT ABLE TOLERATE ANYTHING ORALLY. THIS TIME SHE COMES WITH 3 DAYS OF LOWER ABDOMEN PAIN. Hospital Course: MONCHO HAS HAD RECURRENT UTI. THIS TIME SHE COMES WITH UTI, FEVER, SEPTICEMIA WITH PROTEUS, DR. RODRIGUEZ PLACED IN TWO STENTS IN [place]TERS. SHE IS STABLE TO GO HOME ON BACTRIM DS BID. SHE WILL FU WITH DR. RODRIGUEZ. PROGNOSIS IS GUARDED. Vital Signs/Physical Exam: Temp Pulse Resp BP Pulse Ox 98.1 F 63 15 168/72 H 94 05/29/25 08:00 05/29/25 08:00 05/29/25 08:00 05/29/25 08:00 05/29/25 08:00 Laboratory Data at Discharge: WBC 5.70 thou/uL (4.3-10.9) 05/28/25 04:10 Hgb 10.9 g/dL (12.0-15.0) L 05/28/25 04:10 Hct 31.2 % (36.0-45.0) L 05/28/25 04:10 Plt Count 137 thou/uL (152-406) L 05/28/25 04:10 PT 13.5 SECONDS (10-13.0) H 05/21/25 14:30 INR 1.20 05/21/25 14:30 APTT Cancelled 05/22/25 19:30 Sodium 144 mEq/L (136-145) 05/28/25 04:10 Potassium 3.4 mEq/L (3.5-5.1) L 05/28/25 04:10 BUN 24 mg/dL (7-18) H 05/28/25 04:10 Creatinine 0.98 mg/dL (0.55-1.02) 05/28/25 04:10 Glucose 93 mg/dL (74-106) 05/28/25 04:10 Uric Acid 3.5 mg/dL (2.6-6.0) 05/24/25 04:55 Phosphorus 3.6 mg/dL (2.5-4.9) 05/28/25 04:10 Magnesium 1.6 mg/dL (1.6-2.4) 05/26/25 04:43 Total Bilirubin 1.1 mg/dL (0.2-1.0) H 05/21/25 14:30 AST 39 U/L (15-37) H 05/21/25 14:30 ALT 26 U/L (13-56) 05/21/25 14:30 Alkaline Phosphatase 29 U/L (45-117) L 05/21/25 14:30 Lipase 38 U/L (13-75) 05/21/25 14:30 Home Medications: Sertraline HCl 50 mg PO DAILY 03/14/19 Fenofibrate [Tricor*] 145 mg PO DAILY 12/01/22 Montelukast [Singulair*] 10 mg PO DAILY 01/10/24 Famotidine 40 mg PO DAILY 05/30/24 Dicyclomine [Bentyl*] 20 mg PO BID 06/20/24 Meclizine HCl 25 mg PO TIDP PRN 06/20/24 Mv-Mn/Folic AC/Calcium/Vit K1 [Women's 50 Plus Multivit Tab] 1 each PO DAILY 06/20/24 carvediloL [Coreg*] 6.25 mg PO BIDWM 06/20/24 Gabapentin 300 mg PO BEDTIME 05/21/25 Alendronate Sodium 70 mg PO DIRECTED 05/25/25 Sulfamethoxazole/Trimethoprim [Sulfamethoxazole-Tmp Ds Tablet] 1 each PO BID #28 tab 05/29/25 New Medications: Sulfamethoxazole/Trimethoprim [Sulfamethoxazole-Tmp Ds Tablet] 1 each PO BID #28 tab Followup: Earl Almanza MD [Primary Care Provider] - 1-2 Weeks Ovidio Rodriguez [ACTIVE - CAN ADMIT] - 1-2 Weeks
[2025-05-30] MEDS ORDERED: VALSARTAN 160 MG TAB PO SCH (09:00)
== END 2025-05-29 12:21 | disposition home or self-care (01) | DRG 659 ==
LOC: ER 13:04 → 2ND 16:54
PROVIDERS: ADMIT Internal Medicine; ATTEND Internal Medicine
PROC: 02HV33Z Insertion of Infusion Device into Superior Vena Cava, Percutaneous Approach (ICD-10-PCS; 2025-05-26)
PROC: BT141ZZ Fluoroscopy of Kidneys, Ureters and Bladder using Low Osmolar Contrast (ICD-10-PCS; 2025-05-28)
PROC: 0T9B80Z Drainage of Bladder with Drainage Device, Via Natural or Artificial Opening Endoscopic (ICD-10-PCS; 2025-05-28)
PROC: 0T788DZ Dilation of Bilateral Ureters with Intraluminal Device, Via Natural or Artificial Opening Endoscopic (ICD-10-PCS; principal; 2025-05-28 16:45)
DX: T83.511A Infection and inflammatory reaction due to indwelling urethral catheter, initial encounter (principal); A41.59 Other Gram-negative sepsis; I21.A1 Myocardial infarction type 2; N17.0 Acute kidney failure with tubular necrosis; N13.6 Pyonephrosis; I13.0 Hypertensive heart and chronic kidney disease with heart failure and stage 1 through stage 4 chronic kidney disease, or unspecified chronic kidney disease; E87.0 Hyperosmolality and hypernatremia; I50.9 Heart failure, unspecified; N18.31 Chronic kidney disease, stage 3a; E66.9 Obesity, unspecified; E86.0 Dehydration; E87.6 Hypokalemia; I48.91 Unspecified atrial fibrillation; K58.9 Irritable bowel syndrome, unspecified; E78.00 Pure hypercholesterolemia, unspecified; K21.9 Gastro-esophageal reflux disease without esophagitis; R33.9 Retention of urine, unspecified; Z88.5 Allergy status to narcotic agent; Z68.27 Body mass index [BMI] 27.0-27.9, adult; Z85.72 Personal history of non-Hodgkin lymphomas; Z79.02 Long term (current) use of antithrombotics/antiplatelets; Z90.49 Acquired absence of other specified parts of digestive tract; Z79.899 Other long term (current) drug therapy
CPT/HCPCS: 36415; 36569; 51610; 71045; 74177; 74450; 76770; 80048; 80069; 80076; 81001; 82550; 82570; 83605; 83690; 83735; 83880; 83970; 84132; 84156; 84443; 84484; 84550; 85025; 85027; 85610; 85730; 87040; 87077; 87086; 87088; 87186; 87205; 93005; 93306; 96374; 96375; 99285; C2617; J0360; J0692; J0696; J1100; J1644; J2003; J2405; J2704; J3010; J7030; J7120; Q9967